=== PATIENT | male | born 1965 | race Caucasian/White ===

== ENCOUNTER 2018-08-26 16:03 | Emergency (ER) | payer MEDICAID, OTHER, SELFPAY ==
[~2018-08-26] VITALS: Ht 182.9 cm; Wt 108.8 kg
[2018-08-26] MEDS ORDERED: LANTINJ4 SC (16:17)
[2018-08-26] MEDS ORDERED: INSUH10VL SC (16:17)
[2018-08-26] MEDS ORDERED: ACETAMINOPHEN 325 MG TAB PO ONE (16:45)
[2018-08-26] MEDS ORDERED: BACI500O8 TOP (18:13)
[2018-08-26 18:21] VITALS: BP 123/89
== END 2018-08-26 18:26 | disposition home or self-care (01) ==
LOC: M ED 16:03
DX: S90.821A Blister (nonthermal), right foot, initial encounter (principal); E11.9 Type 2 diabetes mellitus without complications; X58.XXXA Exposure to other specified factors, initial encounter; Y92.9 Unspecified place or not applicable; Y93.9 Activity, unspecified; Y99.9 Unspecified external cause status; Z79.4 Long term (current) use of insulin; Z88.6 Allergy status to analgesic agent; Z88.0 Allergy status to penicillin; Z88.7 Allergy status to serum and vaccine; Z91.012 Allergy to eggs

== ENCOUNTER 2018-08-30 18:26 | Emergency (ER) | payer MEDICAID, SELFPAY ==
[~2018-08-30] VITALS: Ht 182.9 cm; Wt 109.1 kg
[~2018-08-30 18:26] MED LIST: BACI500O8 TOP; INSUH10VL SC; LANTINJ4 SC
[2018-08-30 18:27] VITALS: BP 142/93
[2018-08-30] MEDS ORDERED: CALL40PA EXT (19:10)
== END 2018-08-30 19:37 | disposition home or self-care (01) ==
LOC: M ED 18:26
DX: L84 Corns and callosities (principal); E11.9 Type 2 diabetes mellitus without complications; I10 Essential (primary) hypertension; Z86.718 Personal history of other venous thrombosis and embolism; Z86.711 Personal history of pulmonary embolism; F17.220 Nicotine dependence, chewing tobacco, uncomplicated; Z88.6 Allergy status to analgesic agent; Z88.0 Allergy status to penicillin; Z91.012 Allergy to eggs; Z88.7 Allergy status to serum and vaccine; Z79.4 Long term (current) use of insulin; Z79.2 Long term (current) use of antibiotics

== ENCOUNTER 2018-09-16 22:52 | Emergency (ER) | payer MEDICAID, SELFPAY ==
[~2018-09-16] VITALS: Ht 182.9 cm; Wt 109.1 kg
[~2018-09-16 22:52] MED LIST changes: +CALL40PA EXT
[2018-09-16] MEDS ORDERED: dexameTHASONE 20 MG/5 ML VIAL (J1100) IV ONE (23:15)
[2018-09-16] MEDS ORDERED: IPRATROPIUM 0.5MG/ALBUTEROL 2.5MG INH SOL UD 3ML (DUONEB)(J7620) NEB ONE (23:15)
[2018-09-17] MEDS ORDERED: PRED20TA PO (00:30)
[2018-09-17] MEDS ORDERED: ZITHTAB PO (00:31)
[2018-09-17 00:57] VITALS: BP 118/68
--- NOTE | 2018-09-17 06:05 | ECGEPIP ---
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
--- NOTE | 2018-09-17 08:05 | REP ---
Chest two views HISTORY: Chest pain Comparison: 11/02/2015 Linear density is present in the left lower lobe consistent with scar. The right lung is clear. The heart is normal in size. The pulmonary vasculature is normal in appearance. The bony structure is intact. IMPRESSION: No acute disease. Electronically Signed by Freddy Joseph MD 09/17/2018 07:56 A
== END 2018-09-17 01:00 | disposition home or self-care (01) ==
LOC: EDBD 22:52 → M ED 22:52
DX: J40 Bronchitis, not specified as acute or chronic (principal); E10.9 Type 1 diabetes mellitus without complications; I10 Essential (primary) hypertension; Z86.718 Personal history of other venous thrombosis and embolism; F17.220 Nicotine dependence, chewing tobacco, uncomplicated; Z88.0 Allergy status to penicillin; Z91.012 Allergy to eggs; Z88.7 Allergy status to serum and vaccine; Z88.6 Allergy status to analgesic agent
CPT/HCPCS: 71046; 93005; 94640; 96374; 99284; J1100

== ENCOUNTER 2018-09-21 20:50 | Emergency (ER) | payer MEDICAID, SELFPAY ==
[~2018-09-21] VITALS: Ht 182.9 cm; Wt 109.1 kg
[~2018-09-21 20:50] MED LIST changes: +PRED20TA PO; +ZITHTAB PO
[2018-09-21] MEDS ORDERED: AZIT-12 (21:07)
[2018-09-21] MEDS ORDERED: NORCO 5/325MG TABLET (BULK FOR ED) PO ONE (22:30)
[2018-09-21 22:32] VITALS: BP 124/81
[2018-09-21] MEDS ORDERED: HYDR-3713 PO (22:34)
[2018-09-21] MEDS ORDERED: NORCOTAB PO (22:36)
--- NOTE | 2018-09-22 01:41 | REP ---
Clinical: Trauma. Technique: AP, lateral, bilateral oblique and sunrise views left knee . Findings: Generalized age-related changes are appreciated. The osseous structures and joint spaces are intact and there is no evidence for acute fracture or dislocation. No joint effusion is appreciated. Surrounding soft tissues are unremarkable. No subcutaneous emphysema or radiodense foreign body. Impression: Age-related changes. No acute fracture or dislocation. Electronically Signed by Ramon Valiente MD 09/22/2018 01:33 A
--- NOTE | 2018-09-22 01:44 | REP ---
Clinical: Trauma/injury. Technique: AP, lateral, bilateral oblique views of the left ankle. Findings: Advanced post traumatic degenerative changes include innumerable old corticated fracture fragments at the medial and lateral malleoli as well as spurring along the anterior-superior and posterior margins of the talus with minimal joint space irregularity. Moderate soft tissue swelling is appreciated. No obvious acute fracture or dislocation. Peripheral vascular disease noted. Impression: Post traumatic arthritic changes. Moderate swelling. No acute fracture identified. Electronically Signed by Ramon Valiente MD 09/22/2018 01:35 A
== END 2018-09-21 22:43 | disposition home or self-care (01) ==
LOC: M ED 20:50
DX: S93.402A Sprain of unspecified ligament of left ankle, initial encounter (principal); S80.02XA Contusion of left knee, initial encounter; W00.9XXA Unspecified fall due to ice and snow, initial encounter; Y92.099 Unspecified place in other non-institutional residence as the place of occurrence of the external cause; Y93.H1 Activity, digging, shoveling and raking; Y99.9 Unspecified external cause status; E11.9 Type 2 diabetes mellitus without complications; I10 Essential (primary) hypertension; Z86.718 Personal history of other venous thrombosis and embolism; Z87.81 Personal history of (healed) traumatic fracture; Z79.4 Long term (current) use of insulin; Z88.6 Allergy status to analgesic agent; Z88.0 Allergy status to penicillin; Z88.7 Allergy status to serum and vaccine; Z91.012 Allergy to eggs

== ENCOUNTER 2018-09-23 22:17 | Emergency (ER) | payer MEDICAID, SELFPAY ==
[~2018-09-23] VITALS: Ht 182.9 cm; Wt 100.0 kg
[~2018-09-23 22:17] MED LIST changes: +AZIT-12; +HYDR-3713 PO; +NORCOTAB PO
[2018-09-23 22:57] LABS: BASO # 0.1 10^3/uL (0.0-0.2); BASO % 0.6 % (0.0-1.0); EOS # 1.1 10^3/uL (0.0-0.50); EOS % 11.6 % (0.0-3.0); HEMATOCRIT 45.8 % (42.0-52.0); HEMOGLOBIN 16.1 g/dl (13.5-17.5); LYMPH # 2.2 10^3/uL (1.5-4.5); LYMPH % 24.1 % (24.0-44.0); MEAN CORPUSCULAR HEMOGLOBIN 28.5 pg (27.0-33.0); MEAN CORPUSCULAR HGB CONC 35.2 g/dl (32.0-36.5); MEAN CORPUSCULAR VOLUME 81.2 fl (80.0-96.0); MONO # 0.7 10^3/uL (0.0-0.8); MONO % 7.8 % (0.0-5.0); NEUTROPHILS # 5.1 10^3/uL (1.8-7.7); NEUTROPHILS % 54.5 % (36.0-66.0); PLATELET COUNT, AUTOMATED 259 10^3/uL (150-450); RED BLOOD COUNT 5.64 10^6/uL (4.30-6.10); WHITE BLOOD COUNT 9.3 10^3/uL (4.0-10.0)
[2018-09-23] MEDS ORDERED: NS 1,000 ML IV SCH (23:07)
[2018-09-23] MEDS ORDERED: GI COCKTAIL 50ML BTL(HYOSCYAMINE/MAALOX/LIDOCAINE VISCOUS)(1:3:1) PO ONE (23:15)
[2018-09-23 23:23] LABS: BLOOD UREA NITROGEN 15 MG/DL (7-18); CALCIUM LEVEL 8.7 MG/DL (8.5-10.1); CARBON DIOXIDE LEVEL 27 MEQ/L (21-32); CHLORIDE LEVEL 97 MEQ/L (98-107); CK-MB VALUE MASS < 1.0 NG/ML (<3.6); CPK CREATINE PHOSPHOKINASE 47 U/L (39-308); GLOMERULAR FILTRATION RATE > 60.0 (>56); GLUCOSE, FASTING 394 MG/DL (70-100); MB/CK RELATIVE INDEX 2.13 (< OR =4); POTASSIUM SERUM 4.3 MEQ/L (3.5-5.1); SODIUM LEVEL 133 MEQ/L (136-145); TROPONIN I < 0.02 NG/ML (< 0.10)
[2018-09-24] MEDS ORDERED: HumuLIN R (REGULAR) INSULIN (NovoLIN R) **100U/ML** PER UNIT IV ONE
[2018-09-24 04:08] LABS: INR 0.92; PROTHROMBIN TIME 12.5 SECONDS (12.1-14.4)
[2018-09-24 04:16] LABS: CK-MB VALUE MASS < 1.0 NG/ML (<3.6); CPK CREATINE PHOSPHOKINASE 40 U/L (39-308); TROPONIN I < 0.02 NG/ML (< 0.10)
[2018-09-24] MEDS ORDERED: TESS100C PO (04:41)
[2018-09-24] MEDS ORDERED: NAPR-50 PO (04:41)
[2018-09-24] MEDS ORDERED: BENZONATATE 100 MG CAP PO ONE (04:45)
[2018-09-24] MEDS ORDERED: ALBUTEROL 90 MCG/ACT 8GM HFA INHALER INH ONE (04:45)
[2018-09-24] MEDS ORDERED: NAPROXEN 250 MG TAB PO ONE (04:45)
[2018-09-24 05:07] VITALS: BP 121/83
--- NOTE | 2018-09-24 08:43 | REP ---
Portable chest x-ray: Single view. History: Chest pain. Comparison study: September 16, 2018. Findings: EKG monitoring electrodes overlie the chest. There is minimal linear fibrosis at the left base unchanged. Lung [place] are otherwise clear. Pleural angles are sharp. Cardiomediastinal silhouette is unremarkable. No significant bony abnormality is seen. Impression: No active disease. Electronically Signed by Mykel Tavares MD 09/24/2018 08:35 A
--- NOTE | 2018-09-24 08:51 | ECGEPIP ---
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
--- NOTE | 2018-09-24 08:53 | ECGEPIP ---
Stationary ECG Study [facility] - ED Test Date: 2018-09-24 Pat Name: BAILEY LE Department: Room: - Gender: M Edgerman: : 1965 Requested By: DEVIKA STEPHENSON Order Number: [id number] Reading MD: Gisella Hawley Measurements Intervals [place] Rate: 89 P: -18 MN: 136 QRS: -31 QRSD: 96 T: 0 QT: 345 QTc: 421 Interpretive Statements SINUS RHYTHM POSSIBLE LEFT ATRIAL ENLARGEMENT MARKED LEFT AXIS DEVIATION PATTERN CONSISTENT WITH PULMONARY DISEASE NONSPECIFIC T-WAVE ABNORMALITY ?PRIOR INFERIOR INFARCT SIMILAR 09/23/18 Electronically Signed On 09-24-2018 8:53:01 EST by Gisella Hawley
--- NOTE | 2018-09-27 07:26 | ECGEPIP ---
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
== END 2018-09-24 05:26 | disposition home or self-care (01) ==
LOC: M ED 22:17
DX: R07.89 Other chest pain (principal); E11.9 Type 2 diabetes mellitus without complications; Z86.718 Personal history of other venous thrombosis and embolism; Z79.899 Other long term (current) drug therapy; Z79.2 Long term (current) use of antibiotics

== ENCOUNTER 2018-10-04 11:40 | Emergency (ER) | payer MEDICAID ==
[~2018-10-04 11:40] MED LIST changes: +NAPR-50 PO; +TESS100C PO
[2018-10-04 13:57] LABS: INFLUENZA A AMPLIFICATION NEGATIVE (NEGATIVE); INFLUENZA B AMPLIFICATION NEGATIVE (NEGATIVE)
[2018-10-04 15:04] VITALS: BP 117/83
== END 2018-10-04 15:06 | disposition home or self-care (01) ==
LOC: EDBD 11:40 → M ED 11:40
DX: B34.9 Viral infection, unspecified (principal); E11.9 Type 2 diabetes mellitus without complications; F17.210 Nicotine dependence, cigarettes, uncomplicated

== ENCOUNTER 2018-10-16 19:54 | Emergency (ER) | payer MEDICAID ==
[~2018-10-16] VITALS: Ht 182.9 cm; Wt 110.5 kg
[~2018-10-16 19:54] MED LIST changes: -CYCL10TA PO; -NEUR300C PO
[2018-10-16] MEDS ORDERED: HALOPERIDOL 5 MG/ML VIAL (J1630) IM ONE (21:15)
[2018-10-16] MEDS ORDERED: GABAPENTIN 300 MG CAP PO ONE (21:45)
[2018-10-16] MEDS ORDERED: CYCLOBENZAPRINE 10 MG TAB PO ONE (21:45)
[2018-10-16 23:28] VITALS: BP 145/93
[2018-10-16] MEDS ORDERED: NEUR300C PO (23:28)
[2018-10-16] MEDS ORDERED: CYCL10TA PO (23:28)
--- NOTE | 2018-10-17 08:31 | REP ---
Right upper extremity duplex venous ultrasound: Repeat dictation. Preliminary report by virtual radiology. History: Recent surgery. Pain. Question venous thrombosis. Findings: The right internal jugular, axillary, brachial, basilic, and cephalic veins are anechoic and compressible in the left upper extremity. Color flow imaging is homogeneous. Spectral Doppler interrogation is unremarkable. There is no evidence of right upper extremity venous thrombosis. Impression: Negative right upper extremity duplex venous ultrasound. No evidence of venous thrombosis. Electronically Signed by Mykel Tavares MD 10/17/2018 08:22 A
[2018-10-17] MEDS ORDERED: NAPR-50 PO (22:05)
== END 2018-10-16 23:55 | disposition home or self-care (01) ==
LOC: M ED 19:54
DX: G62.9 Polyneuropathy, unspecified (principal); M25.511 Pain in right shoulder; G89.18 Other acute postprocedural pain; I10 Essential (primary) hypertension; E11.9 Type 2 diabetes mellitus without complications; Z86.718 Personal history of other venous thrombosis and embolism; Z86.73 Personal history of transient ischemic attack (TIA), and cerebral infarction without residual deficits; F17.220 Nicotine dependence, chewing tobacco, uncomplicated; Z79.4 Long term (current) use of insulin

== ENCOUNTER → 2018-10-16 | Outpatient (REF) | payer MEDICAID ==
[~2018-10-16] MED LIST changes: +CYCL10TA PO; +NEUR300C PO
[2018-10-16 12:31] LABS: BASO # 0.1 10^3/uL (0.0-0.2); BASO % 0.8 % (0.0-1.0); EOS # 1.1 10^3/uL (0.0-0.50); EOS % 11.5 % (0.0-3.0); HEMATOCRIT 47.4 % (42.0-52.0); HEMOGLOBIN 16.7 g/dl (13.5-17.5); LYMPH # 2.8 10^3/uL (1.5-4.5); MEAN CORPUSCULAR HEMOGLOBIN 28.5 pg (27.0-33.0); MEAN CORPUSCULAR HGB CONC 35.2 g/dl (32.0-36.5); MONO # 0.8 10^3/uL (0.0-0.8); MONO % 8.5 % (0.0-5.0); NEUTROPHILS # 4.7 10^3/uL (1.8-7.7); NEUTROPHILS % 49.4 % (36.0-66.0); PLATELET COUNT, AUTOMATED 263 10^3/uL (150-450); RED BLOOD COUNT 5.85 10^6/uL (4.30-6.10); WHITE BLOOD COUNT 9.6 10^3/uL (4.0-10.0)
[2018-10-16 13:00] LABS: ALBUMIN 4.4 GM/DL (3.2-5.2); ALT/SGPT 20 U/L (12-78); BILIRUBIN,TOTAL 0.8 MG/DL (0.2-1.0); BLOOD UREA NITROGEN 13 MG/DL (7-18); CALCIUM LEVEL 9.3 MG/DL (8.5-10.1); CARBON DIOXIDE LEVEL 28 MEQ/L (21-32); CHLORIDE LEVEL 97 MEQ/L (98-107); CHOLESTEROL LEVEL 211 MG/DL (<200); CHOLESTEROL RISK RATIO 5.275 (<5); CREATININE FOR GFR 1.04 MG/DL (0.70-1.30); GLOMERULAR FILTRATION RATE > 60.0 (>56); GLUCOSE, FASTING 424 MG/DL (70-100); HDL CHOLESTEROL 40 MG/DL (>40); LDL CHOLESTEROL 95 MG/DL (<100); NON-HDL-C 171 MG/DL; POTASSIUM SERUM 4.4 MEQ/L (3.5-5.1); SODIUM LEVEL 135 MEQ/L (136-145); TOTAL PROTEIN 8.1 GM/DL (6.4-8.2); TRIGLYCERIDES LEVEL 379 MG/DL (<150)
== END ==
LOC: M LAB REF 11:56
PROVIDERS: ATTEND Family Medicine Addiction Medicine
DX: E11.9 Type 2 diabetes mellitus without complications (principal)

== ENCOUNTER 2018-10-17 17:55 | Emergency (ER) | payer MEDICAID ==
[~2018-10-17] VITALS: Ht 182.9 cm; Wt 110.5 kg
[~2018-10-17 17:55] MED LIST changes: +CYCL10TA PO; +NEUR300C PO
[2018-10-17 21:23] VITALS: BP 123/90
[2018-10-17] MEDS ORDERED: NAPR-50 PO (22:05)
[2018-10-17] MEDS ORDERED: NAPROXEN 250 MG TAB PO ONE (22:15)
--- NOTE | 2018-10-18 08:42 | ECGEPIP ---
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 Order Number: [id number] Reading MD: Gautam Reed Measurements Intervals [place] Rate: 85 P: 18 MO: 157 QRS: -29 QRSD: 95 T: 44 QT: 360 QTc: 428 Interpretive Statements SINUS RHYTHM POSSIBLE LEFT ATRIAL ENLARGEMENT CANNOT R/O INFERIOR MYOCARDIAL INFARCTION, OLD NO CHANGE SINCE 09/24/18 Electronically Signed On 10-18-2018 8:42:28 EST by Gautam Reed
== END 2018-10-17 22:11 | disposition home or self-care (01) ==
LOC: M ED 17:55
DX: G56.02 Carpal tunnel syndrome, left upper limb (principal)

== ENCOUNTER 2018-10-21 20:23 | Emergency (ER) | payer MEDICAID ==
[~2018-10-21] VITALS: Ht 182.9 cm; Wt 108.8 kg
[2018-10-21] MEDS ORDERED: ACETAMINOPH W/CODEINE #3 TAB UD PO ONE (23:15)
[2018-10-22 00:25] VITALS: BP 138/78
--- NOTE | 2018-10-23 11:33 | REP ---
LEFT WRIST, FOUR VIEWS: There is no evidence of an acute fracture, dislocation or intrinsic bone disease. IMPRESSION: No fracture or dislocation. Electronically Signed by Matias Tan MD 10/23/2018 10:56 P
--- NOTE | 2018-10-23 11:34 | REP ---
LEFT KNEE SERIES: Five views, left knee performed. There appears to be an old healed fracture of the proximal fibula. No acute fracture or dislocation is seen. There is mild superior patellar spurring. IMPRESSION: No acute fracture or dislocation. Electronically Signed by Matias Tan MD 10/23/2018 10:56 P
--- NOTE | 2018-10-23 11:39 | REP ---
LUMBOSACRAL SPINE: Five views of lumbosacral spine performed. There is no compression fracture or malalignment with normal lumbar lordosis. There is no spondylolysis or spondylolisthesis. There is moderate narrowing and subchondral sclerosis at L5-S1 with sclerosis at the posterior facet joints at that level as well as spurring. Posterior elements are intact. IMPRESSION: Degenerative changes predominantly at L5-S1 level. No fracture or dislocation. Electronically Signed by Matias Tan MD 10/23/2018 10:58 P
== END 2018-10-22 01:36 | disposition home or self-care (01) ==
LOC: M ED 20:23
DX: S80.02XA Contusion of left knee, initial encounter (principal); M54.5 Low back pain; M25.532 Pain in left wrist; W00.1XXA Fall from stairs and steps due to ice and snow, initial encounter; Y92.098 Other place in other non-institutional residence as the place of occurrence of the external cause; I10 Essential (primary) hypertension; E10.9 Type 1 diabetes mellitus without complications; Z86.73 Personal history of transient ischemic attack (TIA), and cerebral infarction without residual deficits; Z86.711 Personal history of pulmonary embolism; Z88.0 Allergy status to penicillin; Z88.7 Allergy status to serum and vaccine; Z88.8 Allergy status to other drugs, medicaments and biological substances; Z91.012 Allergy to eggs; Z79.899 Other long term (current) drug therapy; Z79.1 Long term (current) use of non-steroidal anti-inflammatories (NSAID)

== ENCOUNTER 2018-10-27 00:42 | Emergency (ER) | payer MEDICAID ==
[~2018-10-27] VITALS: Ht 182.9 cm; Wt 110.5 kg
[2018-10-27 00:43] VITALS: BP 125/88
[2018-10-27] MEDS ORDERED: ONDANSETRON 4 MG ORAL DISINTEGRATING TAB (Q0162 PER 1MG) PO ONE (01:45)
[2018-10-27] MEDS ORDERED: diphenhydrAMINE 50 MG CAP PO ONE (01:45)
[2018-10-27] MEDS ORDERED: ACETAMINOPHEN 325 MG TAB PO ONE (01:45)
== END 2018-10-27 01:59 | disposition home or self-care (01) ==
LOC: M ED 00:42
DX: R51 Headache (principal); E10.9 Type 1 diabetes mellitus without complications; I10 Essential (primary) hypertension
CPT/HCPCS: 99284; Q0162

== ENCOUNTER 2018-10-30 13:36 | Emergency (ER) | payer MEDICAID ==
[~2018-10-30] VITALS: Ht 182.9 cm; Wt 110.5 kg
--- NOTE | 2018-10-30 15:09 | REP ---
RIGHT HAND, FOUR VIEWS: HISTORY: Injury. There is no acute fracture or dislocation. The joint spaces are normal in appearance. A 6 mm linear metallic density is present in the soft tissue lateral to the distal phalange of the fifth digit. IMPRESSION: 1. There is no acute fracture or dislocation. 2. There is a 6 mm linear density in the soft tissue lateral to the distal phalange of the fifth digit. Electronically Signed by Freddy Joseph MD 10/30/2018 03:45 P
[2018-10-30] MEDS ORDERED: traMADol 50 MG TAB PO ONE (16:15)
[2018-10-30] MEDS ORDERED: ACETAMINOPHEN TAB 650MG DOSE (2X325MG) PO ONE (16:15)
[2018-10-30 16:17] VITALS: BP 132/98
--- NOTE | 2018-11-06 20:00 | ED PDOC ---
Post-Departure Follow-Up dr tenorio faxed formal report of right hand film for fu Steve Landrum MD Nov 06, 2018 20:00
== END 2018-10-30 16:23 | disposition home or self-care (01) ==
LOC: M ED 13:36
DX: S60.221A Contusion of right hand, initial encounter (principal); S63.501A Unspecified sprain of right wrist, initial encounter; W22.09XA Striking against other stationary object, initial encounter; Y92.098 Other place in other non-institutional residence as the place of occurrence of the external cause; I10 Essential (primary) hypertension; E11.9 Type 2 diabetes mellitus without complications; Z86.73 Personal history of transient ischemic attack (TIA), and cerebral infarction without residual deficits; Z86.711 Personal history of pulmonary embolism; Z86.718 Personal history of other venous thrombosis and embolism; Z87.891 Personal history of nicotine dependence; Z91.012 Allergy to eggs; Z88.7 Allergy status to serum and vaccine; Z88.0 Allergy status to penicillin; Z88.8 Allergy status to other drugs, medicaments and biological substances; Z79.1 Long term (current) use of non-steroidal anti-inflammatories (NSAID); Z79.4 Long term (current) use of insulin

== ENCOUNTER 2018-11-08 13:07 | Outpatient (RCR) | payer MEDICAID | END 2018-11-09 | LOC: M PT 13:07 | PROVIDERS: ATTEND Orthopaedic Surgery | DX: S43.401D Unspecified sprain of right shoulder joint, subsequent encounter (principal); X58.XXXA Exposure to other specified factors, initial encounter; Y99.8 Other external cause status ==

== ENCOUNTER 2022-04-10 20:26 | Emergency (ER) | payer MEDICAID ==
[~2022-04-10] VITALS: Ht 185.4 cm; Wt 111.3 kg
[~2022-04-10 20:26] MED LIST changes: +CYCL-707 PO; -CYCL10TA PO; +HYDR-3715 PO; -NAPR-50 PO; +NAPR-837 PO; -NORCOTAB PO
[2022-04-10] MEDS ORDERED: CYCLOBENZAPRINE 5MG TABLET PO ONE (22:35)
[2022-04-10] MEDS ORDERED: CYCL5TAB PO ×2 (23:03→23:33)
[2022-04-10 23:15] VITALS: BP 137/79
[2022-04-11] MEDS ORDERED: UNRESOLVED CLARIFICATION ENTRY XX SCH (00:01)
== END 2022-04-10 23:30 | disposition home or self-care (01) ==
LOC: EDBD 20:26 → EDSEX 20:26 → M ED 20:26
DX: M54.50 Low back pain, unspecified (principal); E11.9 Type 2 diabetes mellitus without complications; I10 Essential (primary) hypertension; J44.9 Chronic obstructive pulmonary disease, unspecified; E78.5 Hyperlipidemia, unspecified; K21.9 Gastro-esophageal reflux disease without esophagitis; E66.9 Obesity, unspecified; G89.29 Other chronic pain; M25.511 Pain in right shoulder; Z79.899 Other long term (current) drug therapy; Z79.4 Long term (current) use of insulin; Z88.0 Allergy status to penicillin; Z88.7 Allergy status to serum and vaccine; Z88.8 Allergy status to other drugs, medicaments and biological substances; Z91.012 Allergy to eggs

== ENCOUNTER 2022-04-17 12:26 | Emergency (ER) | payer MEDICAID ==
[~2022-04-17] VITALS: Ht 182.9 cm; Wt 114.1 kg
[~2022-04-17 12:26] MED LIST changes: +CYCL5TAB PO
[2022-04-17 13:15] LABS: BASO # 0.1 10^3/uL (0.0-0.2); BASO % 0.6 % (0.0-1.0); EOS # 0.7 10^3/uL (0.0-0.5); EOS % 8.8 % (0.0-3.0); HEMATOCRIT 36.5 % (42.0-52.0); HEMOGLOBIN 12.9 g/dl (13.5-17.5); LYMPH # 1.8 10^3/uL (1.5-5.0); LYMPH % 23.6 % (24.0-44.0); MEAN CORPUSCULAR HEMOGLOBIN 28.5 pg (27.0-33.0); MEAN CORPUSCULAR HGB CONC 35.3 g/dl (32.0-36.5); MEAN CORPUSCULAR VOLUME 80.8 fl (80.0-96.0); MONO # 0.7 10^3/uL (0.0-0.8); MONO % 8.6 % (2.0-8.0); NEUTROPHILS # 4.5 10^3/uL (1.5-8.5); NEUTROPHILS % 57.6 % (36.0-66.0); PLATELET COUNT, AUTOMATED 221 10^3/uL (150-450); RED BLOOD COUNT 4.52 10^6/uL (4.30-6.10); WHITE BLOOD COUNT 7.8 10^3/uL (4.0-10.0)
[2022-04-17] MEDS ORDERED: ISOVUE-370 76% 100ML VIAL As Ordered ONE (13:23)
[2022-04-17 13:26] LABS: INR 0.92; PROTHROMBIN TIME 12.7 SECONDS (12.7-14.5)
[2022-04-17 13:48] LABS: CK-MB VALUE MASS 1.2 NG/ML (<3.6); MB/CK RELATIVE INDEX 2.11 (< OR =4)
[2022-04-17 13:53] LABS: ALBUMIN 3.4 GM/DL (3.2-5.2); BILIRUBIN,DIRECT 0.1 MG/DL (0.0-0.2); BILIRUBIN,TOTAL 0.5 MG/DL (0.2-1.0); FREE T4 0.97 NG/DL (0.76-1.46); THYROID STIMULATING HORMONE 1.11 uIU/ML (0.358-3.740); TOTAL PROTEIN 6.8 GM/DL (6.4-8.2)
[2022-04-17 15:22] LABS: CK-MB VALUE MASS 1.1 NG/ML (<3.6); MB/CK RELATIVE INDEX 2.2 (< OR =4)
[2022-04-17 16:19] VITALS: BP 138/83
== END 2022-04-17 16:47 | disposition home or self-care (01) ==
LOC: EDBD 12:26 → M ED 12:26
DX: R07.9 Chest pain, unspecified (principal); I25.2 Old myocardial infarction; R94.31 Abnormal electrocardiogram [ECG] [EKG]; E11.9 Type 2 diabetes mellitus without complications; Z79.4 Long term (current) use of insulin; Z79.899 Other long term (current) drug therapy; Z88.7 Allergy status to serum and vaccine; Z88.0 Allergy status to penicillin; Z88.8 Allergy status to other drugs, medicaments and biological substances; Z91.012 Allergy to eggs; Z86.73 Personal history of transient ischemic attack (TIA), and cerebral infarction without residual deficits; Z86.711 Personal history of pulmonary embolism; Z98.890 Other specified postprocedural states
CPT/HCPCS: 71045; 71275; 80047; 80076; 82550; 82553; 83690; 83880; 84439; 84443; 85025; 85610; 85730; 93005; 93041; 94760; 99285; Q9967

== ENCOUNTER 2022-05-30 11:50 | Emergency (ER) | payer MEDICAID ==
[~2022-05-30] VITALS: Ht 182.9 cm; Wt 112.3 kg
[2022-05-30 12:12] LABS: BASO % 0.5 % (0.0-1.0); EOS # 0.8 10^3/uL (0.0-0.5); EOS % 9.9 % (0.0-3.0); HEMATOCRIT 41.2 % (42.0-52.0); HEMOGLOBIN 13.7 g/dl (13.5-17.5); LYMPH # 1.8 10^3/uL (1.5-5.0); LYMPH % 22.1 % (24.0-44.0); MEAN CORPUSCULAR HEMOGLOBIN 27.7 pg (27.0-33.0); MEAN CORPUSCULAR HGB CONC 33.3 g/dl (32.0-36.5); MEAN CORPUSCULAR VOLUME 83.2 fl (80.0-96.0); MONO # 0.8 10^3/uL (0.0-0.8); MONO % 10.1 % (2.0-8.0); NEUTROPHILS # 4.5 10^3/uL (1.5-8.5); NEUTROPHILS % 56.4 % (36.0-66.0); PLATELET COUNT, AUTOMATED 283 10^3/uL (150-450); RED BLOOD COUNT 4.95 10^6/uL (4.30-6.10); WHITE BLOOD COUNT 8.1 10^3/uL (4.0-10.0)
[2022-05-30] MEDS ORDERED: DESL5TAB11 PO (12:20)
[2022-05-30] MEDS ORDERED: LISI10TA22 PO (12:20)
[2022-05-30] MEDS ORDERED: TRAM50TA2 PO (12:21)
[2022-05-30] MEDS ORDERED: NITR0.4S14 SL (12:22)
[2022-05-30] MEDS ORDERED: PROAAER10 INH (12:23)
[2022-05-30] MEDS ORDERED: [UNRECOGNIZED DRUG - CODE] PO (12:23)
[2022-05-30] MEDS ORDERED: LOPE1CAP5 PO (12:27)
[2022-05-30] MEDS ORDERED: LOPE2CAP PO (12:27)
[2022-05-30 12:30] VITALS: BP 120/71
[2022-05-30] MEDS ORDERED: METH4TAB8 PO (12:30)
[2022-05-30] MEDS ORDERED: SULF400T14 PO (12:32)
[2022-05-30] MEDS ORDERED: RANO500T7 PO (12:33)
[2022-05-30] MEDS ORDERED: TIZA4CAP PO (12:33)
[2022-05-30] MEDS ORDERED: TIZA2CAP PO (12:33)
[2022-05-30 13:10] LABS: CK-MB VALUE MASS < 1.0 NG/ML (<3.6); CPK CREATINE PHOSPHOKINASE 41 U/L (39-308); MB/CK RELATIVE INDEX 2.44 (< OR =4)
[2022-05-30 13:13] LABS: ALBUMIN 3.5 GM/DL (3.2-5.2); ALT/SGPT 22 U/L (12-78); BILIRUBIN,DIRECT 0.1 MG/DL (0.0-0.2); BILIRUBIN,TOTAL 0.5 MG/DL (0.2-1.0); BLOOD UREA NITROGEN 22 MG/DL (7-18); CALCIUM LEVEL 8.8 MG/DL (8.5-10.1); CARBON DIOXIDE LEVEL 25 MEQ/L (21-32); CHLORIDE LEVEL 104 MEQ/L (98-107); CREATININE FOR GFR 1.14 MG/DL (0.70-1.30); GLOMERULAR FILTRATION RATE > 60.0 (>56); GLUCOSE, FASTING 229 MG/DL (70-100); POTASSIUM SERUM 5.2 MEQ/L (3.5-5.1); SODIUM LEVEL 134 MEQ/L (136-145); TOTAL PROTEIN 7.3 GM/DL (6.4-8.2)
[2022-05-30 13:14] LABS: LIPASE 718 U/L (73-393)
[2022-05-30 13:44] LABS: RSV AMPLIFICATION NEGATIVE (NEGATIVE)
[2022-05-30 15:25] LABS: CK-MB VALUE MASS < 1.0 NG/ML (<3.6); CPK CREATINE PHOSPHOKINASE 38 U/L (39-308); MB/CK RELATIVE INDEX 2.63 (< OR =4)
[2022-05-30 16:41] LABS: CK-MB VALUE MASS < 1.0 NG/ML (<3.6); CPK CREATINE PHOSPHOKINASE 37 U/L (39-308)
== END 2022-05-30 17:23 | disposition home or self-care (01) ==
LOC: M ED 11:50
DX: U07.1 COVID-19 (principal); R07.89 Other chest pain; E11.9 Type 2 diabetes mellitus without complications; I10 Essential (primary) hypertension; G89.29 Other chronic pain; Z86.73 Personal history of transient ischemic attack (TIA), and cerebral infarction without residual deficits; Z88.0 Allergy status to penicillin; Z91.012 Allergy to eggs; Z87.891 Personal history of nicotine dependence; Z79.899 Other long term (current) drug therapy; Z79.4 Long term (current) use of insulin

== ENCOUNTER 2022-09-24 15:47 | Emergency (ER) | payer MEDICAID ==
[~2022-09-24 15:47] MED LIST changes: +DESL5TAB11 PO; +LISI10TA22 PO; +LOPE1CAP5 PO; +LOPE2CAP PO; +METH4TAB8 PO; +NITR0.4S14 SL; +PROAAER10 INH; +RANO500T7 PO; +SULF400T14 PO; +TIZA2CAP PO; +TIZA4CAP PO; +TRAM50TA2 PO; +[UNRECOGNIZED DRUG - CODE] PO
[2022-09-24] MEDS ORDERED: TETRACAINE 0.5% OPHTH SOLN 4ML OU ONE (16:05)
[2022-09-24] MEDS ORDERED: FLUORESCEIN OPHTH 1MG STRIP OS ONE (16:10)
[2022-09-24] MEDS ORDERED: ACETAMINOPHEN 325 MG TAB PO ONE (16:25)
[2022-09-24 17:06] LABS: BASO # 0.1 10^3/uL (0.0-0.2); BASO % 0.7 % (0.0-1.0); EOS # 0.6 10^3/uL (0.0-0.5); EOS % 7.5 % (0.0-3.0); HEMATOCRIT 39.1 % (42.0-52.0); HEMOGLOBIN 13.5 g/dl (13.5-17.5); LYMPH # 2.6 10^3/uL (1.5-5.0); LYMPH % 29.9 % (24.0-44.0); MEAN CORPUSCULAR HEMOGLOBIN 27.8 pg (27.0-33.0); MEAN CORPUSCULAR HGB CONC 34.5 g/dl (32.0-36.5); MEAN CORPUSCULAR VOLUME 80.5 fl (80.0-96.0); MONO # 0.7 10^3/uL (0.0-0.8); MONO % 8.2 % (2.0-8.0); NEUTROPHILS # 4.5 10^3/uL (1.5-8.5); NEUTROPHILS % 52.9 % (36.0-66.0); PLATELET COUNT, AUTOMATED 218 10^3/uL (150-450); RED BLOOD COUNT 4.86 10^6/uL (4.30-6.10); WHITE BLOOD COUNT 8.5 10^3/uL (4.0-10.0)
[2022-09-24] MEDS ORDERED: ISOVUE-370 76% 100ML VIAL As Ordered ONE (17:15)
[2022-09-24 17:29] LABS: INR 0.95; PROTHROMBIN TIME 12.9 SECONDS (12.5-14.5)
[2022-09-24 17:31] LABS: PARTIAL THROMBOPLASTIN TIME 26.4 SECONDS (24.8-34.2)
[2022-09-24 18:01] LABS: ERYTHROCYTE SEDIMENTATION RATE 19 mm/hr (0-20)
== END 2022-09-24 19:02 | disposition left against medical advice (07) ==
LOC: M ED 17:58
DX: H57.12 Ocular pain, left eye (principal); Z53.9 Procedure and treatment not carried out, unspecified reason; E11.9 Type 2 diabetes mellitus without complications; I10 Essential (primary) hypertension; Z86.73 Personal history of transient ischemic attack (TIA), and cerebral infarction without residual deficits; G93.89 Other specified disorders of brain; I65.23 Occlusion and stenosis of bilateral carotid arteries; Z79.4 Long term (current) use of insulin; Z79.899 Other long term (current) drug therapy; Z88.7 Allergy status to serum and vaccine; Z88.0 Allergy status to penicillin; Z88.8 Allergy status to other drugs, medicaments and biological substances; Z91.012 Allergy to eggs

== ENCOUNTER 2022-09-25 10:42 | Emergency (ER) | payer MEDICAID ==
[~2022-09-25] VITALS: Ht 182.9 cm; Wt 115.9 kg
[2022-09-25 10:50] VITALS: BP 141/79
[2022-09-25] MEDS ORDERED: FLUORESCEIN OPHTH 1MG STRIP OS ONE (12:30)
[2022-09-25] MEDS ORDERED: PROPARACAINE 0.5% OPHTH SOL 15ML OS ONE (12:30)
== END 2022-09-25 14:10 | disposition home or self-care (01) ==
LOC: EDBD 10:42 → M ED 10:42
DX: H53.8 Other visual disturbances (principal); E11.9 Type 2 diabetes mellitus without complications; Z79.4 Long term (current) use of insulin; Z79.899 Other long term (current) drug therapy; Z88.0 Allergy status to penicillin; Z88.7 Allergy status to serum and vaccine; Z88.8 Allergy status to other drugs, medicaments and biological substances; Z91.012 Allergy to eggs

== ENCOUNTER 2022-12-19 17:49 | Emergency (ER) | payer MEDICAID ==
[~2022-12-19] VITALS: Ht 175.3 cm; Wt 111.4 kg
[2022-12-19 18:04] VITALS: BP 154/102
[2022-12-19] MEDS ORDERED: NS 1,000 ML IV SCH (18:25)
[2022-12-19] MEDS ORDERED: GI COCKTAIL 50ML BTL(HYOSCYAMINE/MAALOX/LIDOCAINE VISCOUS)(1:3:1) PO ONE (18:25)
[2022-12-19] MEDS ORDERED: FAMOTIDINE 20MG/2ML VIAL IVP ONE (18:25)
[2022-12-19] MEDS ORDERED: ONDANSETRON 4MG 2ML VIAL IV ONE (18:25)
[2022-12-19 19:13] LABS: BASO # 0.1 10^3/uL (0.0-0.2); BASO % 0.6 % (0.0-1.0); EOS # 0.8 10^3/uL (0.0-0.5); EOS % 9.9 % (0.0-3.0); HEMOGLOBIN 13.5 g/dl (13.5-17.5); LYMPH # 1.8 10^3/uL (1.5-5.0); LYMPH % 23.1 % (24.0-44.0); MEAN CORPUSCULAR HEMOGLOBIN 28.4 pg (27.0-33.0); MEAN CORPUSCULAR HGB CONC 33.8 g/dl (32.0-36.5); MONO # 0.6 10^3/uL (0.0-0.8); MONO % 7.5 % (2.0-8.0); NEUTROPHILS # 4.5 10^3/uL (1.5-8.5); NEUTROPHILS % 58.3 % (36.0-66.0); PLATELET COUNT, AUTOMATED 237 10^3/uL (150-450); RED BLOOD COUNT 4.76 10^6/uL (4.30-6.10); WHITE BLOOD COUNT 7.8 10^3/uL (4.0-10.0)
[2022-12-19 19:22] LABS: INR 0.95; PROTHROMBIN TIME 12.9 SECONDS (12.5-14.5)
[2022-12-19 19:41] LABS: CK-MB VALUE MASS < 1.0 NG/ML (<3.6); LIPASE 84 U/L (12-53)
[2022-12-19 19:43] LABS: ALBUMIN 3.9 G/DL (3.2-5.2); ALKALINE PHOSPHATASE 93 U/L (46-116); ALT/SGPT 19 U/L (7.0-40); AMYLASE 138 U/L (30-118); AST/SGOT 13 U/L (<34); BILIRUBIN,DIRECT < 0.1 MG/DL (<0.4); BILIRUBIN,TOTAL 0.5 MG/DL (0.3-1.2); BLOOD UREA NITROGEN 12 MG/DL (9-23); CALCIUM LEVEL 8.5 MG/DL (8.5-10.1); CARBON DIOXIDE LEVEL 31 MMOL/L (20-31); CHLORIDE LEVEL 105 MMOL/L (98-107); CPK CREATINE PHOSPHOKINASE 40 U/L (46-171); CREATININE FOR GFR 0.91 MG/DL (0.70-1.30); GLOMERULAR FILTRATION RATE > 60.0 (>56); GLUCOSE, FASTING 174 MG/DL (60-100); POTASSIUM SERUM 4.2 MMOL/L (3.5-5.1); SODIUM LEVEL 140 MMOL/L (136-145); TOTAL PROTEIN 6.9 G/DL (5.7-8.2)
[2022-12-19] MEDS ORDERED: ONDA4TAB6 PO (20:33)
== END 2022-12-19 20:33 | disposition home or self-care (01) ==
LOC: M ED 17:49 → EDBD 17:49 → M ED 20:33
DX: K21.00 Gastro-esophageal reflux disease with esophagitis, without bleeding (principal); I25.10 Atherosclerotic heart disease of native coronary artery without angina pectoris; E11.9 Type 2 diabetes mellitus without complications; I10 Essential (primary) hypertension; Z86.73 Personal history of transient ischemic attack (TIA), and cerebral infarction without residual deficits; Z88.0 Allergy status to penicillin; Z88.7 Allergy status to serum and vaccine; Z88.6 Allergy status to analgesic agent; Z91.012 Allergy to eggs; Z79.899 Other long term (current) drug therapy
CPT/HCPCS: 74176; 80048; 80076; 81001; 82150; 82550; 82553; 83690; 85025; 85610; 93005; 96374; 96375; 99284; J2405; S0028

== ENCOUNTER 2023-03-05 21:25 | Emergency (ER) | payer MEDICAID ==
[~2023-03-05] VITALS: Ht 175.3 cm; Wt 113.6 kg
[~2023-03-05 21:25] MED LIST changes: +ONDA4TAB6 PO
[2023-03-05 22:02] LABS: VENOUS BASE EXCESS 1.5 (-2.0-2.0); VENOUS O2 SATURATION 89.6 % (60.0-80.0); VENOUS PARTIAL PRESSURE CO2 46.2 mmHg (38.0-50.0); VENOUS PARTIAL PRESSURE O2 55.4 mmHg (30.0-50.0); VENOUS PH 7.385 UNITS (7.330-7.430); VENOUS STANDARD HCO3 25.6 MMOL/L; VENOUS TOTAL CO2 28.4 MMOL/L (24.0-28.0)
[2023-03-05 22:08] LABS: BASO # 0.1 10^3/uL (0.0-0.2); BASO % 0.7 % (0.0-1.0); EOS % 12.2 % (0.0-3.0); HEMATOCRIT 37.2 % (42.0-52.0); HEMOGLOBIN 12.9 g/dl (13.5-17.5); LYMPH # 2.1 10^3/uL (1.5-5.0); LYMPH % 26.4 % (24.0-44.0); MEAN CORPUSCULAR HEMOGLOBIN 28.3 pg (27.0-33.0); MEAN CORPUSCULAR HGB CONC 34.7 g/dl (32.0-36.5); MEAN CORPUSCULAR VOLUME 81.6 fl (80.0-96.0); MONO # 0.7 10^3/uL (0.0-0.8); NEUTROPHILS # 4.2 10^3/uL (1.5-8.5); NEUTROPHILS % 51.8 % (36.0-66.0); PLATELET COUNT, AUTOMATED 225 10^3/uL (150-450); RED BLOOD COUNT 4.56 10^6/uL (4.30-6.10); WHITE BLOOD COUNT 8.1 10^3/uL (4.0-10.0)
[2023-03-05 22:42] LABS: ALBUMIN 3.7 G/DL (3.2-5.2); ALKALINE PHOSPHATASE 164 U/L (46-116); ALT/SGPT 20 U/L (7.0-40); AST/SGOT 13 U/L (<34); BILIRUBIN,DIRECT < 0.1 MG/DL (<0.4); BILIRUBIN,TOTAL 0.4 MG/DL (0.3-1.2); BLOOD UREA NITROGEN 19 MG/DL (9-23); CALCIUM LEVEL 8.8 MG/DL (8.5-10.1); CARBON DIOXIDE LEVEL 25 MMOL/L (20-31); CHLORIDE LEVEL 104 MMOL/L (98-107); CREATININE FOR GFR 0.83 MG/DL (0.70-1.30); GLOMERULAR FILTRATION RATE > 60.0 (>56); GLUCOSE, FASTING 378 MG/DL (60-100); POTASSIUM SERUM 4.5 MMOL/L (3.5-5.1); SODIUM LEVEL 137 MMOL/L (136-145); TOTAL PROTEIN 6.7 G/DL (5.7-8.2)
[2023-03-06] MEDS ORDERED: NS 1,000 ML IV ONE (01:00)
[2023-03-06] MEDS ORDERED: LEVEMIR (INSULIN DETEMIR) 1 UNITS/0.01ML SC ONE (01:05)
[2023-03-06] MEDS ORDERED: NORCO, ANEXSIA 5/325MG TABLET (HYDROcodone/ACETAMINOPHEN) PO ONE (01:20)
[2023-03-06] MEDS ORDERED: HYDR-3713 PO (01:57)
[2023-03-06 03:15] VITALS: BP 132/84; TEMP 98.4; O2SAT 97
== END 2023-03-06 03:18 | disposition home or self-care (01) ==
LOC: M ED 21:25
DX: S92.314A Nondisplaced fracture of first metatarsal bone, right foot, initial encounter for closed fracture (principal); S40.011A Contusion of right shoulder, initial encounter; W19.XXXA Unspecified fall, initial encounter; Y92.830 Public park as the place of occurrence of the external cause; Y93.89 Activity, other specified; Y99.8 Other external cause status; E11.65 Type 2 diabetes mellitus with hyperglycemia; I10 Essential (primary) hypertension; Z88.0 Allergy status to penicillin; Z88.6 Allergy status to analgesic agent; Z91.012 Allergy to eggs; Z88.7 Allergy status to serum and vaccine; Z79.4 Long term (current) use of insulin; Z79.899 Other long term (current) drug therapy; Z79.51 Long term (current) use of inhaled steroids
CPT/HCPCS: 73030; 73630; 80048; 80076; 82803; 85025; 86140; 96372; 99284; J1815

== ENCOUNTER 2023-03-12 13:11 | Emergency (ER) | payer MEDICAID ==
[~2023-03-12] VITALS: Ht 175.3 cm; Wt 111.9 kg
[2023-03-12] MEDS ORDERED: dexAMETHasone 20MG/5ML VIAL IV ONE (14:05)
[2023-03-12] MEDS ORDERED: NS 1,000 ML IV ONE (14:05)
[2023-03-12 14:13] LABS: BASO # 0.1 10^3/uL (0.0-0.2); BASO % 0.9 % (0.0-1.0); EOS # 0.9 10^3/uL (0.0-0.5); EOS % 9.3 % (0.0-3.0); HEMATOCRIT 41.3 % (42.0-52.0); HEMOGLOBIN 14.7 g/dl (13.5-17.5); LYMPH # 1.8 10^3/uL (1.5-5.0); LYMPH % 18.1 % (24.0-44.0); MEAN CORPUSCULAR HEMOGLOBIN 28.6 pg (27.0-33.0); MEAN CORPUSCULAR HGB CONC 35.6 g/dl (32.0-36.5); MEAN CORPUSCULAR VOLUME 80.4 fl (80.0-96.0); MONO # 0.8 10^3/uL (0.0-0.8); MONO % 8.3 % (2.0-8.0); NEUTROPHILS # 6.1 10^3/uL (1.5-8.5); NEUTROPHILS % 62.8 % (36.0-66.0); PLATELET COUNT, AUTOMATED 256 10^3/uL (150-450); RED BLOOD COUNT 5.14 10^6/uL (4.30-6.10); WHITE BLOOD COUNT 9.8 10^3/uL (4.0-10.0)
[2023-03-12 14:21] LABS: BLOOD UREA NITROGEN 20 MG/DL (9-23); CALCIUM LEVEL 9.4 MG/DL (8.5-10.1); CARBON DIOXIDE LEVEL 23 MMOL/L (20-31); CHLORIDE LEVEL 102 MMOL/L (98-107); GLOMERULAR FILTRATION RATE > 60.0 (>56); GLUCOSE, FASTING 374 MG/DL (60-100); POTASSIUM SERUM 4.1 MMOL/L (3.5-5.1); SODIUM LEVEL 136 MMOL/L (136-145)
[2023-03-12] MEDS: MORPHINE 2 MG/ML 1ML VIAL IV PRN ×2 (14:36→15:13)
[2023-03-12] MEDS ORDERED: KETOROLAC 30 MG/ML 1ML VIAL IV ONE (15:20)
[2023-03-12] MEDS ORDERED: KETO10TAB PO (16:10)
[2023-03-12] MEDS ORDERED: PRED20TA PO (16:10)
[2023-03-12 16:47] VITALS: BP 115/75; TEMP 97.8; O2SAT 96
== END 2023-03-12 16:49 | disposition home or self-care (01) ==
LOC: M ED 13:11
DX: M54.30 Sciatica, unspecified side (principal); E11.9 Type 2 diabetes mellitus without complications; I10 Essential (primary) hypertension; Z88.0 Allergy status to penicillin; Z88.7 Allergy status to serum and vaccine; Z88.6 Allergy status to analgesic agent; Z91.012 Allergy to eggs; Z79.899 Other long term (current) drug therapy; Z79.4 Long term (current) use of insulin; Z79.51 Long term (current) use of inhaled steroids
CPT/HCPCS: 72110; 80048; 85025; 93041; 96365; 96375; 99285; J1100; J1885

== ENCOUNTER 2023-03-22 23:01 | Emergency (ER) | payer MEDICAID ==
[~2023-03-22] VITALS: Ht 175.3 cm; Wt 111.4 kg
[~2023-03-22 23:01] MED LIST changes: +KETO10TAB PO
[2023-03-23 03:25] VITALS: BP 128/90; TEMP 96.8; O2SAT 100
[2023-03-23] MEDS ORDERED: ACETAMINOPHEN 325 MG TAB PO STA (05:37)
== END 2023-03-23 07:03 | disposition left against medical advice (07) ==
LOC: M ED 23:01 → EDBD 23:01 → M ED 03-23 07:03
DX: M54.9 Dorsalgia, unspecified (principal); Z53.21 Procedure and treatment not carried out due to patient leaving prior to being seen by health care provider

== ENCOUNTER 2023-04-15 11:53 | Emergency (ER) | payer MEDICAID ==
[~2023-04-15] VITALS: Ht 175.3 cm; Wt 111.4 kg
[2023-04-15] MEDS ORDERED: LIDOCAINE 5% (LIDODERM) PATCH TD ONE (13:00)
[2023-04-15] MEDS ORDERED: CYCLOBENZAPRINE 10MG TABLET PO ONE (13:00)
[2023-04-15] MEDS ORDERED: CYCL-707 PO (14:08)
[2023-04-15] MEDS ORDERED: LIDO5DIS41 TD (14:10)
[2023-04-15 14:36] VITALS: BP 146/90; TEMP 98.4; O2SAT 99
== END 2023-04-15 14:39 | disposition home or self-care (01) ==
LOC: M ED 11:53 → EDBD 11:53 → M ED 14:39
DX: S39.012A Strain of muscle, fascia and tendon of lower back, initial encounter (principal); X58.XXXA Exposure to other specified factors, initial encounter; Y92.89 Other specified places as the place of occurrence of the external cause; Y93.89 Activity, other specified; Y99.8 Other external cause status; I10 Essential (primary) hypertension; E11.9 Type 2 diabetes mellitus without complications; Z86.73 Personal history of transient ischemic attack (TIA), and cerebral infarction without residual deficits; Z86.711 Personal history of pulmonary embolism; Z86.718 Personal history of other venous thrombosis and embolism; F17.220 Nicotine dependence, chewing tobacco, uncomplicated; Z88.0 Allergy status to penicillin; Z88.4 Allergy status to anesthetic agent; Z88.8 Allergy status to other drugs, medicaments and biological substances; Z88.6 Allergy status to analgesic agent; Z91.012 Allergy to eggs; Z79.899 Other long term (current) drug therapy; Z79.51 Long term (current) use of inhaled steroids; Z79.52 Long term (current) use of systemic steroids

== ENCOUNTER 2023-05-20 13:31 | Emergency (ER) | payer MEDICAID ==
[~2023-05-20] VITALS: Ht 175.3 cm; Wt 111.4 kg
[~2023-05-20 13:31] MED LIST changes: +LIDO5DIS41 TD
[2023-05-20 16:46] LABS: BASO # 0.1 10^3/uL (0.0-0.2); HEMATOCRIT 39.6 % (42.0-52.0); HEMOGLOBIN 13.3 g/dl (13.5-17.5); LYMPH # 1.8 10^3/uL (1.5-5.0); MEAN CORPUSCULAR HEMOGLOBIN 27.8 pg (27.0-33.0); MEAN CORPUSCULAR HGB CONC 33.6 g/dl (32.0-36.5); MEAN CORPUSCULAR VOLUME 82.8 fl (80.0-96.0); MONO # 0.7 10^3/uL (0.0-0.8); MONO % 7.6 % (2.0-8.0); NEUTROPHILS # 5.3 10^3/uL (1.5-8.5); NEUTROPHILS % 59.4 % (36.0-66.0); PLATELET COUNT, AUTOMATED 228 10^3/uL (150-450); RED BLOOD COUNT 4.78 10^6/uL (4.30-6.10)
[2023-05-20 17:05] LABS: LIPASE 62 U/L (12-53)
[2023-05-20 17:07] LABS: ALKALINE PHOSPHATASE 95 U/L (46-116); ALT/SGPT 17 U/L (7.0-40); AST/SGOT < 8 U/L (<34); BILIRUBIN,DIRECT 0.2 MG/DL (<0.4); BILIRUBIN,TOTAL 0.5 MG/DL (0.3-1.2); BLOOD UREA NITROGEN 20 MG/DL (9-23); CALCIUM LEVEL 9.8 MG/DL (8.5-10.1); CARBON DIOXIDE LEVEL 26 MMOL/L (20-31); CHLORIDE LEVEL 107 MMOL/L (98-107); GLOMERULAR FILTRATION RATE > 60.0 (>56); GLUCOSE, FASTING 265 MG/DL (60-100); POTASSIUM SERUM 4.3 MMOL/L (3.5-5.1); SODIUM LEVEL 141 MMOL/L (136-145); TOTAL PROTEIN 7.2 G/DL (5.7-8.2)
[2023-05-20] MEDS ORDERED: ACETAMINOPHEN 500 MG TAB PO ONE (17:45)
[2023-05-20] MEDS ORDERED: METOCLOPRAMIDE INJ 10MG/2ML VIAL IV ONE (19:20)
[2023-05-20] MEDS ORDERED: diphenhydrAMINE 50MG/ML VIAL IV ONE (19:20)
[2023-05-20 19:34] VITALS: BP 168/97; TEMP 97.6; O2SAT 97
[2023-05-20 20:50] LABS: HEMOGLOBIN A1c 11.6 % (4.0-6.0)
== END 2023-05-20 19:41 | disposition home or self-care (01) ==
LOC: M ED 13:31 → EDBD 13:31 → M ED 19:41
DX: M54.50 Low back pain, unspecified (principal); R35.0 Frequency of micturition; E11.9 Type 2 diabetes mellitus without complications; Z79.4 Long term (current) use of insulin; I10 Essential (primary) hypertension; Z86.718 Personal history of other venous thrombosis and embolism; Z88.0 Allergy status to penicillin; Z88.6 Allergy status to analgesic agent; Z88.8 Allergy status to other drugs, medicaments and biological substances; Z88.7 Allergy status to serum and vaccine; Z79.899 Other long term (current) drug therapy
CPT/HCPCS: 72131; 74176; 80048; 80076; 81001; 83036; 83690; 85025; 96374; 96375; 99284; J1200; J2765

== ENCOUNTER 2023-05-22 00:20 | Emergency (ER) | payer MEDICAID ==
[~2023-05-22] VITALS: Ht 175.3 cm; Wt 111.4 kg
[2023-05-22 00:28] VITALS: BP 152/87; TEMP 97.2; O2SAT 97
[2023-05-22] MEDS ORDERED: KETOROLAC 60MG 2ML VIAL IM ONE (06:00)
== END 2023-05-22 05:43 | disposition home or self-care (01) ==
LOC: M ED 00:20
DX: S99.921A Unspecified injury of right foot, initial encounter (principal); W22.8XXA Striking against or struck by other objects, initial encounter; Y92.410 Unspecified street and highway as the place of occurrence of the external cause; Y93.01 Activity, walking, marching and hiking; Y99.8 Other external cause status; E11.9 Type 2 diabetes mellitus without complications; F17.200 Nicotine dependence, unspecified, uncomplicated; Z88.0 Allergy status to penicillin; Z88.7 Allergy status to serum and vaccine; Z88.6 Allergy status to analgesic agent; Z91.012 Allergy to eggs; Z88.8 Allergy status to other drugs, medicaments and biological substances; Z79.899 Other long term (current) drug therapy; Z79.52 Long term (current) use of systemic steroids; Z79.4 Long term (current) use of insulin; Z79.51 Long term (current) use of inhaled steroids
CPT/HCPCS: 73630; 96372; 99284; J1885

== ENCOUNTER 2023-06-18 23:53 | Emergency (ER) | payer MEDICAID ==
[~2023-06-18] VITALS: Ht 175.3 cm; Wt 111.2 kg
[~2023-06-18 23:53] MED LIST changes: +CLEO150C PO; +DOXY100T
[2023-06-19] MEDS ORDERED: KETOROLAC 30 MG/ML 1ML VIAL IV ONE (01:30)
[2023-06-19 01:38] LABS: BASO # 0.1 10^3/uL (0.0-0.2); BASO % 0.6 % (0.0-1.0); EOS # 0.5 10^3/uL (0.0-0.5); EOS % 6.3 % (0.0-3.0); HEMATOCRIT 35.5 % (42.0-52.0); HEMOGLOBIN 12.4 g/dl (13.5-17.5); LYMPH # 1.4 10^3/uL (1.5-5.0); LYMPH % 17.5 % (24.0-44.0); MEAN CORPUSCULAR HGB CONC 34.9 g/dl (32.0-36.5); MEAN CORPUSCULAR VOLUME 82.9 fl (80.0-96.0); MONO # 0.7 10^3/uL (0.0-0.8); MONO % 8.1 % (2.0-8.0); NEUTROPHILS # 5.4 10^3/uL (1.5-8.5); NEUTROPHILS % 66.9 % (36.0-66.0); PLATELET COUNT, AUTOMATED 230 10^3/uL (150-450); RED BLOOD COUNT 4.28 10^6/uL (4.30-6.10); WHITE BLOOD COUNT 8.1 10^3/uL (4.0-10.0)
[2023-06-19 02:13] LABS: BLOOD UREA NITROGEN 14 MG/DL (9-23); CALCIUM LEVEL 8.4 MG/DL (8.5-10.1); CARBON DIOXIDE LEVEL 26 MMOL/L (20-31); CHLORIDE LEVEL 104 MMOL/L (98-107); CREATININE FOR GFR 0.84 MG/DL (0.70-1.30); GLOMERULAR FILTRATION RATE > 60.0 (>56); GLUCOSE, FASTING 454 MG/DL (60-100); POTASSIUM SERUM 4.5 MMOL/L (3.5-5.1); SODIUM LEVEL 137 MMOL/L (136-145)
[2023-06-19] MEDS ORDERED: HumuLIN R (REGULAR) INSULIN (NovoLIN R) **100U/ML** PER UNIT IV ONE (02:15)
[2023-06-19 06:29] VITALS: BP 148/88; TEMP 97.7; O2SAT 99
== END 2023-06-19 06:32 | disposition home or self-care (01) ==
LOC: M ED 23:53
DX: L97.518 Non-pressure chronic ulcer of other part of right foot with other specified severity (principal); M79.604 Pain in right leg; I25.10 Atherosclerotic heart disease of native coronary artery without angina pectoris; I10 Essential (primary) hypertension; E11.9 Type 2 diabetes mellitus without complications; Z96.651 Presence of right artificial knee joint; Z79.4 Long term (current) use of insulin; Z79.899 Other long term (current) drug therapy; Z88.7 Allergy status to serum and vaccine; Z88.0 Allergy status to penicillin; Z88.8 Allergy status to other drugs, medicaments and biological substances; Z91.012 Allergy to eggs; Z91.89 Other specified personal risk factors, not elsewhere classified
CPT/HCPCS: 73630; 80048; 85025; 96374; 96375; 99284; J1815; J1885

== ENCOUNTER 2023-07-23 15:10 | Emergency (ER) | payer MEDICAID ==
[~2023-07-23] VITALS: Ht 175.3 cm; Wt 113.6 kg
[2023-07-23] MEDS ORDERED: ACETAMINOPHEN TAB 650MG DOSE (2X325MG) PO ONE (17:15)
[2023-07-23 17:16] LABS: BASO # 0.1 10^3/uL (0.0-0.2); BASO % 0.7 % (0.0-1.0); EOS # 1.4 10^3/uL (0.0-0.5); EOS % 14.9 % (0.0-3.0); HEMATOCRIT 36.6 % (42.0-52.0); HEMOGLOBIN 12.5 g/dl (13.5-17.5); LYMPH # 2.3 10^3/uL (1.5-5.0); LYMPH % 24.7 % (24.0-44.0); MEAN CORPUSCULAR HEMOGLOBIN 28.8 pg (27.0-33.0); MEAN CORPUSCULAR HGB CONC 34.2 g/dl (32.0-36.5); MEAN CORPUSCULAR VOLUME 84.3 fl (80.0-96.0); MONO # 0.8 10^3/uL (0.0-0.8); MONO % 8.7 % (2.0-8.0); NEUTROPHILS # 4.6 10^3/uL (1.5-8.5); NEUTROPHILS % 50.5 % (36.0-66.0); PLATELET COUNT, AUTOMATED 223 10^3/uL (150-450); RED BLOOD COUNT 4.34 10^6/uL (4.30-6.10); WHITE BLOOD COUNT 9.1 10^3/uL (4.0-10.0)
[2023-07-23 17:31] LABS: BLOOD UREA NITROGEN 22 MG/DL (9-23); CALCIUM LEVEL 8.9 MG/DL (8.5-10.1); CARBON DIOXIDE LEVEL 24 MMOL/L (20-31); CHLORIDE LEVEL 106 MMOL/L (98-107); CREATININE FOR GFR 0.86 MG/DL (0.70-1.30); GLOMERULAR FILTRATION RATE > 60.0 (>56); GLUCOSE, FASTING 126 MG/DL (60-100); POTASSIUM SERUM 4.7 MMOL/L (3.5-5.1); SODIUM LEVEL 140 MMOL/L (136-145)
[2023-07-23 17:43] LABS: PROCALCITONIN <0.04 ng/ml
[2023-07-23 17:46] LABS: RSV AMPLIFICATION NEGATIVE (NEGATIVE)
[2023-07-23 17:47] LABS: ERYTHROCYTE SEDIMENTATION RATE 23 mm/hr (0-20)
[2023-07-23] MEDS ORDERED: KETOROLAC 30 MG/ML 1ML VIAL IV ONE (18:05)
[2023-07-23] MEDS ORDERED: HYDR-3713 PO (18:25)
[2023-07-23] MEDS ORDERED: CEPH500C PO (18:25)
[2023-07-23 18:33] VITALS: BP 132/64; TEMP 97; O2SAT 98
== END 2023-07-23 18:55 | disposition home or self-care (01) ==
LOC: M ED 15:10
DX: E11.621 Type 2 diabetes mellitus with foot ulcer (principal); I25.10 Atherosclerotic heart disease of native coronary artery without angina pectoris; I10 Essential (primary) hypertension; Z86.73 Personal history of transient ischemic attack (TIA), and cerebral infarction without residual deficits; Z86.711 Personal history of pulmonary embolism; Z79.4 Long term (current) use of insulin; Z79.899 Other long term (current) drug therapy; Z88.7 Allergy status to serum and vaccine; Z88.0 Allergy status to penicillin; Z88.8 Allergy status to other drugs, medicaments and biological substances; Z91.012 Allergy to eggs; Z91.89 Other specified personal risk factors, not elsewhere classified
CPT/HCPCS: 73630; 80048; 83605; 84145; 85025; 85652; 86140; 87070; 87077; 87186; 87205; 87631; 96374; 99284; J1885

== ENCOUNTER 2023-08-29 22:48 | Inpatient (IN) | payer MEDICAID ==
[~2023-08-29] VITALS: Ht 175.3 cm; Wt 111.4 kg
[~2023-08-29 22:48] MED LIST changes: +CEPH500C PO
[2023-08-30] MEDS ORDERED: ANEXSIA, NORCO 7.5MG/325MG TABLET(HYDROCODONE/APAP) PO ONE (04:00)
[2023-08-30] MEDS ORDERED: NS 1,000 ML IV ONE (04:00)
[2023-08-30 04:35] LABS: BASO # 0.1 10^3/uL (0.0-0.2); BASO % 0.7 % (0.0-1.0); EOS # 0.6 10^3/uL (0.0-0.5); EOS % 7.3 % (0.0-3.0); HEMATOCRIT 39.2 % (42.0-52.0); HEMOGLOBIN 13.3 g/dl (13.5-17.5); LYMPH # 2.3 10^3/uL (1.5-5.0); MEAN CORPUSCULAR HEMOGLOBIN 28.2 pg (27.0-33.0); MEAN CORPUSCULAR HGB CONC 33.9 g/dl (32.0-36.5); MEAN CORPUSCULAR VOLUME 83.1 fl (80.0-96.0); MONO # 0.6 10^3/uL (0.0-0.8); MONO % 8.1 % (2.0-8.0); NEUTROPHILS # 4.1 10^3/uL (1.5-8.5); NEUTROPHILS % 53.4 % (36.0-66.0); PLATELET COUNT, AUTOMATED 260 10^3/uL (150-450); RED BLOOD COUNT 4.72 10^6/uL (4.30-6.10); WHITE BLOOD COUNT 7.6 10^3/uL (4.0-10.0)
[2023-08-30 05:02] LABS: BLOOD UREA NITROGEN 20 MG/DL (9-23); CALCIUM LEVEL 8.8 MG/DL (8.5-10.1); CARBON DIOXIDE LEVEL 28 MMOL/L (20-31); CHLORIDE LEVEL 103 MMOL/L (98-107); CREATININE FOR GFR 0.86 MG/DL (0.70-1.30); GLOMERULAR FILTRATION RATE > 60.0 (>56); GLUCOSE, FASTING 401 MG/DL (60-100); POTASSIUM SERUM 4.6 MMOL/L (3.5-5.1); SODIUM LEVEL 136 MMOL/L (136-145)
[2023-08-30] MEDS ORDERED: HumuLIN R (REGULAR) INSULIN (NovoLIN R) **100U/ML** PER UNIT IV ONE (05:25)
[2023-08-30] MEDS ORDERED: ISOVUE-370 76% 100ML VIAL As Ordered ONE (05:34)
[2023-08-30 07:48] LABS: ERYTHROCYTE SEDIMENTATION RATE 41 mm/hr (0-20)
[2023-08-30 07:53] LABS: PROCALCITONIN <0.04 ng/ml
[2023-08-30] MEDS ORDERED: NORCO, ANEXSIA 5/325MG TABLET (HYDROcodone/ACETAMINOPHEN) PO ONE (10:25)
[2023-08-30] MEDS ORDERED: PROHANCE 279.3MG/ML 15ML VIAL As Ordered ONE (12:50)
[2023-08-30] MEDS ORDERED: PROHANCE 279.3MG/ML 5ML VIAL As Ordered ONE (12:50)
[2023-08-30] MEDS ORDERED: GLUCOSE 4GM CHEW TABLET PO PRN (14:30)
[2023-08-30] MEDS ORDERED: GLUCAGON INJ 1MG VIAL SC PRN (14:30)
[2023-08-30] MEDS ORDERED: DEXTROSE 50% 50ML SYRINGE IV PRN (14:30)
[2023-08-30] MEDS ORDERED: NORCO, ANEXSIA 5/325MG TABLET (HYDROcodone/ACETAMINOPHEN) PO PRN (14:35)
[2023-08-30] MEDS: LEVEMIR (INSULIN DETEMIR) 1 UNITS/0.01ML SC SCH ×2 (14:57→20:06)
[2023-08-30] MEDS ORDERED: MED REC IN PROGRESS XX SCH (15:15)
[2023-08-30] MEDS: PIPERACILLIN/TAZOBACTAM SOD 3.375 GM in D5W MINI-BAG PLUS 50 ML IV SCH ×2 (15:34→21:43)
[2023-08-30] MEDS ORDERED: RANO500T2 PO (15:51)
[2023-08-30] MEDS ORDERED: ALBU8.5H INH (15:53)
[2023-08-30] MEDS ORDERED: VANCOMYCIN HCL 1,000 MG, VIAL MATE ADAPTER 1 EACH in D5W 250 ML IV ONE ×2 (16:00→17:00)
[2023-08-30] MEDS ORDERED: TRUL10IN SC (16:06)
[2023-08-30] MEDS ORDERED: LOPE2TAB12 PO (16:11)
[2023-08-30] MEDS ORDERED: LISI10TA22 PO (16:12)
[2023-08-30] MEDS ORDERED: ONDA4TAB6 PO (16:15)
[2023-08-30] MEDS ORDERED: HOME MED LIST COMPLETE! XX SCH (16:30)
[2023-08-30] MEDS ORDERED: INSULIN LISPRO (NovoLOG) PER UNIT SC SCH (17:30)
[2023-08-30] MEDS: **hydrALAZINE HCL** 25 MG TAB PO SCH (18:00)
[2023-08-30] MEDS: INSULIN LISPRO (NovoLOG) PER UNIT SC SCH ×3 (18:22→20:07)
[2023-08-30 20:02] VITALS: BP 132/77; TEMP 97.9; O2SAT 98
[2023-08-30] MEDS: NORCO, ANEXSIA 5/325MG TABLET (HYDROcodone/ACETAMINOPHEN) PO PRN (20:08)
[2023-08-30] MEDS: amLODIPine 5 MG TAB PO SCH (21:43)
[2023-08-30] MEDS: RANOLAZINE 500MG ER TAB PO SCH (21:43)
[2023-08-31] VITALS (9 sets, daily range): BP systolic 116–140; BP diastolic 70–88; TEMP 97.2–98.1; O2SAT 95–100
[2023-08-31] MEDS: NS 1,000 ML IV SCH ×3 (00:11→19:08)
[2023-08-31] MEDS: VANCOMYCIN HCL 1,000 MG, VIAL MATE ADAPTER 1 EACH in D5W 250 ML IV SCH ×3 (00:11→17:34)
[2023-08-31] MEDS: PIPERACILLIN/TAZOBACTAM SOD 3.375 GM in D5W MINI-BAG PLUS 50 ML IV SCH ×4 (03:05→21:32)
[2023-08-31] MEDS: NORCO, ANEXSIA 5/325MG TABLET (HYDROcodone/ACETAMINOPHEN) PO PRN ×2 (05:03→21:31)
[2023-08-31] MEDS: **hydrALAZINE HCL** 25 MG TAB PO SCH ×4 (06:00→17:35)
[2023-08-31 06:12] LABS: BASO # 0.1 10^3/uL (0.0-0.2); BASO % 0.7 % (0.0-1.0); EOS # 0.7 10^3/uL (0.0-0.5); EOS % 10.3 % (0.0-3.0); HEMATOCRIT 36.3 % (42.0-52.0); HEMOGLOBIN 12.4 g/dl (13.5-17.5); LYMPH % 27.3 % (24.0-44.0); MEAN CORPUSCULAR HEMOGLOBIN 28.3 pg (27.0-33.0); MEAN CORPUSCULAR HGB CONC 34.2 g/dl (32.0-36.5); MEAN CORPUSCULAR VOLUME 82.9 fl (80.0-96.0); MONO # 0.7 10^3/uL (0.0-0.8); NEUTROPHILS # 3.8 10^3/uL (1.5-8.5); NEUTROPHILS % 52.3 % (36.0-66.0); PLATELET COUNT, AUTOMATED 254 10^3/uL (150-450); RED BLOOD COUNT 4.38 10^6/uL (4.30-6.10); WHITE BLOOD COUNT 7.2 10^3/uL (4.0-10.0)
[2023-08-31 06:37] LABS: BLOOD UREA NITROGEN 15 MG/DL (9-23); CARBON DIOXIDE LEVEL 28 MMOL/L (20-31); CHLORIDE LEVEL 108 MMOL/L (98-107); CREATININE FOR GFR 0.76 MG/DL (0.70-1.30); GLOMERULAR FILTRATION RATE > 60.0 (>56); GLUCOSE, FASTING 175 MG/DL (60-100); POTASSIUM SERUM 4.2 MMOL/L (3.5-5.1); SODIUM LEVEL 139 MMOL/L (136-145)
[2023-08-31] MEDS: INSULIN LISPRO (NovoLOG) PER UNIT SC SCH ×7 (07:30→21:33)
[2023-08-31] MEDS: LEVEMIR (INSULIN DETEMIR) 1 UNITS/0.01ML SC SCH ×2 (08:02→21:33)
[2023-08-31] MEDS: amLODIPine 5 MG TAB PO SCH ×2 (08:21→21:32)
[2023-08-31] MEDS: RANOLAZINE 500MG ER TAB PO SCH ×2 (08:21→21:31)
[2023-08-31] MEDS ORDERED: LIDOCAINE 1% MDV 20ML VIAL As Ordered ONE (13:58)
[2023-08-31] MEDS ORDERED: propofoL 200 MG/20 ML VIAL As Ordered ONE (14:22)
[2023-08-31] MEDS ORDERED: fentaNYL 100 MCG/2 ML INJECTION As Ordered ONE (14:22)
[2023-08-31] MEDS ORDERED: LIDOCAINE 2% 100MG/5ML SDV (FOR ANES.) As Ordered ONE (14:22)
[2023-08-31] MEDS ORDERED: MIDAZOLAM INJ 2MG/2ML VIAL As Ordered ONE (14:22)
[2023-09-01] MEDS: VANCOMYCIN HCL 1,000 MG, VIAL MATE ADAPTER 1 EACH in D5W 250 ML IV SCH ×2 (00:01→08:29)
[2023-09-01 02:00] VITALS: BP 155/91; TEMP 98.1; O2SAT 95
[2023-09-01] MEDS: PIPERACILLIN/TAZOBACTAM SOD 3.375 GM in D5W MINI-BAG PLUS 50 ML IV SCH ×2 (02:56→10:22)
[2023-09-01] MEDS: NORCO, ANEXSIA 5/325MG TABLET (HYDROcodone/ACETAMINOPHEN) PO PRN ×2 (04:16→10:22)
[2023-09-01] MEDS: NS 1,000 ML IV SCH (04:16)
[2023-09-01 05:47] VITALS: BP 155/90
[2023-09-01] MEDS: **hydrALAZINE HCL** 25 MG TAB PO SCH ×3 (05:47→12:00)
[2023-09-01 06:00] VITALS: BP 155/90; TEMP 97.9; O2SAT 97
[2023-09-01 06:58] LABS: BASO # 0.1 10^3/uL (0.0-0.2); BASO % 0.8 % (0.0-1.0); EOS # 0.6 10^3/uL (0.0-0.5); EOS % 7.8 % (0.0-3.0); HEMATOCRIT 37.6 % (42.0-52.0); HEMOGLOBIN 12.7 g/dl (13.5-17.5); LYMPH # 1.5 10^3/uL (1.5-5.0); LYMPH % 18.8 % (24.0-44.0); MEAN CORPUSCULAR HEMOGLOBIN 27.6 pg (27.0-33.0); MEAN CORPUSCULAR HGB CONC 33.8 g/dl (32.0-36.5); MEAN CORPUSCULAR VOLUME 81.7 fl (80.0-96.0); MONO # 0.6 10^3/uL (0.0-0.8); NEUTROPHILS # 5.1 10^3/uL (1.5-8.5); NEUTROPHILS % 64.2 % (36.0-66.0); PLATELET COUNT, AUTOMATED 251 10^3/uL (150-450)
[2023-09-01 07:16] LABS: BLOOD UREA NITROGEN 11 MG/DL (9-23); CALCIUM LEVEL 8.4 MG/DL (8.5-10.1); CARBON DIOXIDE LEVEL 28 MMOL/L (20-31); CHLORIDE LEVEL 103 MMOL/L (98-107); CREATININE FOR GFR 0.77 MG/DL (0.70-1.30); GLOMERULAR FILTRATION RATE > 60.0 (>56); GLUCOSE, FASTING 318 MG/DL (60-100); POTASSIUM SERUM 4.1 MMOL/L (3.5-5.1); SODIUM LEVEL 137 MMOL/L (136-145)
[2023-09-01] MEDS: LEVEMIR (INSULIN DETEMIR) 1 UNITS/0.01ML SC SCH (08:29)
[2023-09-01] MEDS: RANOLAZINE 500MG ER TAB PO SCH (08:30)
[2023-09-01] MEDS: INSULIN LISPRO (NovoLOG) PER UNIT SC SCH ×4 (08:30→13:37)
[2023-09-01] MEDS: amLODIPine 5 MG TAB PO SCH (08:31)
[2023-09-01 10:00] VITALS: BP 151/91; TEMP 97.7; O2SAT 98
[2023-09-01] MEDS ORDERED: CEPH500C PO (12:57)
[2023-09-01] MEDS ORDERED: HYDR-3715 PO (12:57)
[2023-09-01] MEDS ORDERED: LANTINJ4 SC (12:57)
[2023-09-01] MEDS ORDERED: LISI10TA22 PO (12:57)
[2023-09-01 14:00] VITALS: BP 120/81; TEMP 97.7; O2SAT 100
== END 2023-09-01 15:00 | disposition home or self-care (01) | DRG 314 ==
LOC: M ED 22:48 → M ED INP 08-30 14:26 → ENRESERV 08-30 16:14 → M MS5PR 08-30 17:33
PROVIDERS: ADMIT Internal Medicine Nephrology; ATTEND Internal Medicine Nephrology
PROC: 0QBP0ZZ Excision of Left Metatarsal, Open Approach (ICD-10-PCS; principal; 2023-08-31 13:30)
DX: E11.621 Type 2 diabetes mellitus with foot ulcer (principal); E11.40 Type 2 diabetes mellitus with diabetic neuropathy, unspecified; M86.8X7 Other osteomyelitis, ankle and foot; E11.69 Type 2 diabetes mellitus with other specified complication; E11.65 Type 2 diabetes mellitus with hyperglycemia; L97.518 Non-pressure chronic ulcer of other part of right foot with other specified severity; I25.10 Atherosclerotic heart disease of native coronary artery without angina pectoris; I10 Essential (primary) hypertension; E78.5 Hyperlipidemia, unspecified; E73.9 Lactose intolerance, unspecified; Z79.4 Long term (current) use of insulin; Z79.899 Other long term (current) drug therapy; Z91.012 Allergy to eggs; Z88.0 Allergy status to penicillin; Z88.7 Allergy status to serum and vaccine; Z88.6 Allergy status to analgesic agent; Z88.8 Allergy status to other drugs, medicaments and biological substances; Z91.048 Other nonmedicinal substance allergy status; E66.9 Obesity, unspecified; Z86.73 Personal history of transient ischemic attack (TIA), and cerebral infarction without residual deficits; Z86.711 Personal history of pulmonary embolism; Z86.718 Personal history of other venous thrombosis and embolism; Z96.651 Presence of right artificial knee joint

== ENCOUNTER 2023-09-11 21:17 | Emergency (ER) | payer MEDICAID ==
[~2023-09-11] VITALS: Ht 170.2 cm; Wt 112.7 kg
[~2023-09-11 21:17] MED LIST changes: +ALBU8.5H INH; +LOPE2TAB12 PO; +RANO500T2 PO; +TRUL10IN SC
[2023-09-11 21:29] VITALS: TEMP 99.2
[2023-09-12] MEDS ORDERED: MORPHINE 4 MG/ML 1ML VIAL IV ONE (00:10)
[2023-09-12] MEDS ORDERED: ONDANSETRON 4MG 2ML VIAL IV ONE (00:10)
[2023-09-12 00:43] LABS: BASO % 0.5 % (0.0-1.0); EOS # 0.4 10^3/uL (0.0-0.5); EOS % 4.5 % (0.0-3.0); HEMATOCRIT 34.7 % (42.0-52.0); HEMOGLOBIN 11.9 g/dl (13.5-17.5); LYMPH # 1.6 10^3/uL (1.5-5.0); MEAN CORPUSCULAR HEMOGLOBIN 27.7 pg (27.0-33.0); MEAN CORPUSCULAR HGB CONC 34.3 g/dl (32.0-36.5); MEAN CORPUSCULAR VOLUME 80.9 fl (80.0-96.0); MONO # 0.8 10^3/uL (0.0-0.8); MONO % 9.1 % (2.0-8.0); NEUTROPHILS # 5.5 10^3/uL (1.5-8.5); NEUTROPHILS % 66.3 % (36.0-66.0); PLATELET COUNT, AUTOMATED 263 10^3/uL (150-450); RED BLOOD COUNT 4.29 10^6/uL (4.30-6.10); WHITE BLOOD COUNT 8.3 10^3/uL (4.0-10.0)
[2023-09-12] MEDS ORDERED: LEVO1TAB40 PO (01:20)
[2023-09-12 01:24] LABS: BLOOD UREA NITROGEN 14 MG/DL (9-23); CALCIUM LEVEL 8.2 MG/DL (8.5-10.1); CARBON DIOXIDE LEVEL 26 MMOL/L (20-31); CHLORIDE LEVEL 100 MMOL/L (98-107); CREATININE FOR GFR 0.73 MG/DL (0.70-1.30); GLOMERULAR FILTRATION RATE > 60.0 (>56); GLUCOSE, FASTING 538 MG/DL (60-100); POTASSIUM SERUM 4.1 MMOL/L (3.5-5.1); SODIUM LEVEL 133 MMOL/L (136-145)
[2023-09-12 01:30] VITALS: O2SAT 99
[2023-09-12 01:33] LABS: ERYTHROCYTE SEDIMENTATION RATE 52 mm/hr (0-20)
[2023-09-12] MEDS ORDERED: HumuLIN R (REGULAR) INSULIN (NovoLIN R) **100U/ML** PER UNIT IV ONE (01:35)
[2023-09-12] MEDS ORDERED: NS 1,000 ML IV ONE (01:35)
[2023-09-12] MEDS ORDERED: HYDR-3713 PO (01:39)
[2023-09-12] MEDS ORDERED: LevoFLOXacin 750 MG TABLET PO ONE (02:00)
[2023-09-12 04:01] VITALS: BP 130/81
== END 2023-09-12 04:00 | disposition home or self-care (01) ==
LOC: EDBD 21:17 → M ED 21:17
DX: L03.115 Cellulitis of right lower limb (principal); E11.621 Type 2 diabetes mellitus with foot ulcer; L97.519 Non-pressure chronic ulcer of other part of right foot with unspecified severity; T81.49XA Infection following a procedure, other surgical site, initial encounter; Z88.0 Allergy status to penicillin; Z91.048 Other nonmedicinal substance allergy status; Z88.6 Allergy status to analgesic agent; Z88.8 Allergy status to other drugs, medicaments and biological substances; Z79.4 Long term (current) use of insulin; Z79.899 Other long term (current) drug therapy
CPT/HCPCS: 73630; 80048; 85025; 85652; 86140; 96361; 96374; 96375; 99284; J1815; J2405

== ENCOUNTER 2023-09-13 19:55 | Inpatient (IN) | payer MEDICAID ==
[~2023-09-13] VITALS: Ht 175.3 cm; Wt 109.0 kg
[~2023-09-13 19:55] MED LIST changes: +LEVO1TAB40 PO
[2023-09-14] MEDS ORDERED: NORCO, ANEXSIA 5/325MG TABLET (HYDROcodone/ACETAMINOPHEN) PO ONE (06:30)
[2023-09-14 07:01] LABS: BASO % 0.5 % (0.0-1.0); EOS # 0.5 10^3/uL (0.0-0.5); EOS % 8.5 % (0.0-3.0); HEMATOCRIT 36.3 % (42.0-52.0); HEMOGLOBIN 12.4 g/dl (13.5-17.5); LYMPH # 1.2 10^3/uL (1.5-5.0); LYMPH % 21.2 % (24.0-44.0); MEAN CORPUSCULAR HEMOGLOBIN 27.6 pg (27.0-33.0); MEAN CORPUSCULAR HGB CONC 34.2 g/dl (32.0-36.5); MEAN CORPUSCULAR VOLUME 80.7 fl (80.0-96.0); MONO # 0.7 10^3/uL (0.0-0.8); MONO % 12.6 % (2.0-8.0); NEUTROPHILS # 3.3 10^3/uL (1.5-8.5); NEUTROPHILS % 56.3 % (36.0-66.0); PLATELET COUNT, AUTOMATED 231 10^3/uL (150-450); WHITE BLOOD COUNT 5.9 10^3/uL (4.0-10.0)
[2023-09-14] MEDS ORDERED: HumuLIN R (REGULAR) INSULIN (NovoLIN R) **100U/ML** PER UNIT IV ONE (07:10)
[2023-09-14] MEDS ORDERED: NS 1,000 ML IV ONE (07:10)
[2023-09-14 07:23] LABS: C REACTIVE PROTEIN QUANTITATIV 7.2 MG/DL (<1.0)
[2023-09-14 07:37] LABS: VENOUS HCO3 25.2 MMOL/L (23.0-27.0); VENOUS O2 SATURATION 89.2 % (60.0-80.0); VENOUS PARTIAL PRESSURE CO2 43.3 mmHg (38.0-50.0); VENOUS PH 7.383 UNITS (7.330-7.430); VENOUS STANDARD HCO3 24.3 MMOL/L; VENOUS TOTAL CO2 26.5 MMOL/L (24.0-28.0)
[2023-09-14 07:50] LABS: ERYTHROCYTE SEDIMENTATION RATE 55 mm/hr (0-20)
[2023-09-14] MEDS ORDERED: VANCOMYCIN HCL 2,000 MG in D5W 500 ML IV ONE (09:25)
[2023-09-14] MEDS ORDERED: MED REC IN PROGRESS XX SCH (09:50)
[2023-09-14] MEDS ORDERED: VANCOMYCIN HCL 1,000 MG, VIAL MATE ADAPTER 1 EACH in D5W 250 ML IV ONE ×2 (10:00→11:00)
[2023-09-14] MEDS ORDERED: HOME MED LIST COMPLETE! XX SCH (10:50)
[2023-09-14] MEDS ORDERED: MOM 30ML SUSPENSION UDC PO PRN (11:20)
[2023-09-14] MEDS ORDERED: GLUCOSE 4GM CHEW TABLET PO PRN (11:20)
[2023-09-14] MEDS ORDERED: LR 1,000 ML IV SCH (11:20)
[2023-09-14] MEDS ORDERED: GLUCAGON INJ 1MG VIAL SC PRN (11:20)
[2023-09-14] MEDS ORDERED: ACETAMINOPHEN TAB 650MG DOSE (2X325MG) PO PRN (11:20)
[2023-09-14] MEDS ORDERED: DEXTROSE 50% 50ML SYRINGE IV PRN (11:20)
[2023-09-14] MEDS ORDERED: ONDANSETRON 4MG ORAL DISINTEGRATING TAB PO PRN (11:20)
[2023-09-14] MEDS ORDERED: ALBUTEROL 90 MCG/ACT 8GM HFA INHALER INH PRN (11:20)
[2023-09-14 11:30] LABS: RSV AMPLIFICATION NEGATIVE (NEGATIVE)
[2023-09-14 12:11] LABS: PROCALCITONIN 0.2 ng/ml
[2023-09-14 12:32] LABS: INR 1.22; PROTHROMBIN TIME 15.1 SECONDS (12.5-14.5)
[2023-09-14] MEDS: INSULIN LISPRO (NovoLOG) PER UNIT SC SCH ×3 (13:00→20:32)
[2023-09-14] MEDS ORDERED: PIPERACILLIN/TAZOBACTAM SOD 4.5 GM in D5W MINI-BAG PLUS 50 ML IV SCH (14:00)
[2023-09-14] MEDS ORDERED: MORPHINE 2 MG/ML 1ML VIAL IV ONE (14:10)
[2023-09-14] MEDS ORDERED: CLINDAMYCIN 900 MG in IV 1 EA IV SCH (15:00)
[2023-09-14] MEDS: LACTOBACILLUS ACIDOPHILUS CAP (BACID) PO SCH ×3 (15:24→20:31)
[2023-09-14 17:30] VITALS: BP 151/90; TEMP 98.9; O2SAT 99
[2023-09-14] MEDS ORDERED: INSULIN LISPRO (NovoLOG) PER UNIT SC ONE (17:55)
[2023-09-14] MEDS: VANCOMYCIN HCL 1,000 MG, VIAL MATE ADAPTER 1 EACH in NS 250 ML IV SCH (17:59)
[2023-09-14] MEDS: NORCO, ANEXSIA 5/325MG TABLET (HYDROcodone/ACETAMINOPHEN) PO PRN (19:25)
[2023-09-14 20:00] VITALS: BP 124/76; TEMP 96.9; O2SAT 97
[2023-09-14] MEDS ORDERED: PIPERACILLIN/TAZOBACTAM SOD 3.375 GM in D5W MINI-BAG PLUS 50 ML IV SCH (20:00)
[2023-09-14] MEDS: DOCUSATE SODIUM 100MG CAPSULE PO SCH (20:31)
[2023-09-14] MEDS: PIPERACILLIN/TAZOBACTAM SOD 3.375 GM in D5W MINI-BAG PLUS 50 ML IV SCH (20:33)
[2023-09-14] MEDS ORDERED: LEVEMIR (INSULIN DETEMIR) 1 UNITS/0.01ML SC SCH (21:00)
[2023-09-14 23:47] VITALS: BP 132/78; TEMP 97.8; O2SAT 96
[2023-09-15] MEDS: VANCOMYCIN HCL 1,000 MG, VIAL MATE ADAPTER 1 EACH in NS 250 ML IV SCH ×3 (02:51→17:23)
[2023-09-15 03:30] VITALS: BP 112/61; TEMP 97; O2SAT 94
[2023-09-15] MEDS: NORCO, ANEXSIA 5/325MG TABLET (HYDROcodone/ACETAMINOPHEN) PO PRN ×3 (03:30→20:20)
[2023-09-15] MEDS: PIPERACILLIN/TAZOBACTAM SOD 3.375 GM in D5W MINI-BAG PLUS 50 ML IV SCH ×4 (04:32→20:18)
[2023-09-15 06:14] LABS: BASO % 0.5 % (0.0-1.0); EOS # 0.7 10^3/uL (0.0-0.5); EOS % 10.8 % (0.0-3.0); HEMATOCRIT 33.6 % (42.0-52.0); HEMOGLOBIN 11.4 g/dl (13.5-17.5); LYMPH # 1.2 10^3/uL (1.5-5.0); LYMPH % 20.3 % (24.0-44.0); MEAN CORPUSCULAR HEMOGLOBIN 27.3 pg (27.0-33.0); MEAN CORPUSCULAR HGB CONC 33.9 g/dl (32.0-36.5); MEAN CORPUSCULAR VOLUME 80.4 fl (80.0-96.0); MONO # 0.7 10^3/uL (0.0-0.8); MONO % 11.3 % (2.0-8.0); NEUTROPHILS # 3.4 10^3/uL (1.5-8.5); NEUTROPHILS % 56.4 % (36.0-66.0); PLATELET COUNT, AUTOMATED 224 10^3/uL (150-450); RED BLOOD COUNT 4.18 10^6/uL (4.30-6.10)
[2023-09-15 06:51] LABS: BLOOD UREA NITROGEN 13 MG/DL (9-23); CALCIUM LEVEL 8.1 MG/DL (8.5-10.1); CARBON DIOXIDE LEVEL 27 MMOL/L (20-31); CHLORIDE LEVEL 106 MMOL/L (98-107); GLOMERULAR FILTRATION RATE > 60.0 (>56); GLUCOSE, FASTING 405 MG/DL (60-100); POTASSIUM SERUM 4.2 MMOL/L (3.5-5.1); SODIUM LEVEL 137 MMOL/L (136-145)
[2023-09-15] MEDS: INSULIN LISPRO (NovoLOG) PER UNIT SC SCH ×4 (06:56→20:19)
[2023-09-15 08:00] VITALS: BP 130/82; TEMP 97.3; O2SAT 99
[2023-09-15] MEDS ORDERED: LEVEMIR (INSULIN DETEMIR) 1 UNITS/0.01ML SC SCH ×2 (09:00→21:00)
[2023-09-15] MEDS: LACTOBACILLUS ACIDOPHILUS CAP (BACID) PO SCH ×4 (09:23→20:19)
[2023-09-15] MEDS: DOCUSATE SODIUM 100MG CAPSULE PO SCH ×2 (09:23→20:19)
[2023-09-15] MEDS: ATORVASTATIN 20 MG TAB PO SCH (15:27)
[2023-09-15] MEDS: ENOXAPARIN 40MG/0.4ML SYRINGE (J1650 PER 10MG) SC SCH (15:27)
[2023-09-15 16:00] VITALS: BP_SYST 132; BP_SYST 179; BP_DIAS 77; BP_DIAS 80; TEMP 97.3; O2SAT 97
[2023-09-15] MEDS: ASPIRIN 81MG ENTERIC TABLET PO SCH (16:04)
[2023-09-15 19:12] VITALS: BP 138/78
[2023-09-15 20:07] VITALS: BP 138/77; TEMP 97.2; O2SAT 98
[2023-09-15 21:56] VITALS: BP 174/96; TEMP 97.2; O2SAT 98
[2023-09-16] MEDS: VANCOMYCIN HCL 1,000 MG, VIAL MATE ADAPTER 1 EACH in NS 250 ML IV SCH (02:35)
[2023-09-16] MEDS: PIPERACILLIN/TAZOBACTAM SOD 3.375 GM in D5W MINI-BAG PLUS 50 ML IV SCH (04:13)
[2023-09-16 04:21] VITALS: BP 144/88; TEMP 97.5; O2SAT 97
[2023-09-16] MEDS ORDERED: LEVEMIR (INSULIN DETEMIR) 1 UNITS/0.01ML SC SCH (09:00)
[2023-09-16] MEDS: ASPIRIN 81MG ENTERIC TABLET PO SCH (09:00)
[2023-09-16] MEDS ORDERED: AUGMENTIN 875 MG TAB PO SCH (09:00)
[2023-09-16] MEDS: DOCUSATE SODIUM 100MG CAPSULE PO SCH (09:00)
[2023-09-16] MEDS: LACTOBACILLUS ACIDOPHILUS CAP (BACID) PO SCH ×2 (09:23→12:37)
[2023-09-16] MEDS: ATORVASTATIN 20 MG TAB PO SCH (09:23)
[2023-09-16] MEDS: ENOXAPARIN 40MG/0.4ML SYRINGE (J1650 PER 10MG) SC SCH (09:23)
[2023-09-16 09:25] VITALS: BP 144/80
[2023-09-16] MEDS: INSULIN LISPRO (NovoLOG) PER UNIT SC SCH ×2 (09:25→12:37)
[2023-09-16] MEDS: NORCO, ANEXSIA 5/325MG TABLET (HYDROcodone/ACETAMINOPHEN) PO PRN (09:28)
[2023-09-16 09:52] LABS: BASO # 0.1 10^3/uL (0.0-0.2); EOS # 0.7 10^3/uL (0.0-0.5); HEMATOCRIT 35.1 % (42.0-52.0); HEMOGLOBIN 11.7 g/dl (13.5-17.5); LYMPH # 1.7 10^3/uL (1.5-5.0); LYMPH % 26.7 % (24.0-44.0); MEAN CORPUSCULAR HEMOGLOBIN 27.1 pg (27.0-33.0); MEAN CORPUSCULAR HGB CONC 33.3 g/dl (32.0-36.5); MEAN CORPUSCULAR VOLUME 81.3 fl (80.0-96.0); MONO # 0.5 10^3/uL (0.0-0.8); MONO % 8.3 % (2.0-8.0); NEUTROPHILS # 3.2 10^3/uL (1.5-8.5); NEUTROPHILS % 51.2 % (36.0-66.0); PLATELET COUNT, AUTOMATED 249 10^3/uL (150-450); RED BLOOD COUNT 4.32 10^6/uL (4.30-6.10); WHITE BLOOD COUNT 6.2 10^3/uL (4.0-10.0)
[2023-09-16 09:59] LABS: BLOOD UREA NITROGEN 11 MG/DL (9-23); CALCIUM LEVEL 8.6 MG/DL (8.5-10.1); CARBON DIOXIDE LEVEL 29 MMOL/L (20-31); CHLORIDE LEVEL 105 MMOL/L (98-107); CREATININE FOR GFR 0.71 MG/DL (0.70-1.30); GLOMERULAR FILTRATION RATE > 60.0 (>56); GLUCOSE, FASTING 303 MG/DL (60-100); POTASSIUM SERUM 4.2 MMOL/L (3.5-5.1); SODIUM LEVEL 139 MMOL/L (136-145)
[2023-09-16 10:05] LABS: PROCALCITONIN 0.11 ng/ml
[2023-09-16] MEDS ORDERED: ATOR1TAB21 PO (10:21)
[2023-09-16] MEDS ORDERED: AMOX875T2 PO (10:21)
[2023-09-16 10:22] LABS: ERYTHROCYTE SEDIMENTATION RATE 44 mm/hr (0-20)
[2023-09-16] MEDS ORDERED: ATOR40TA75 PO (10:26)
[2023-09-16] MEDS ORDERED: OXYC-517 PO (10:54)
== END 2023-09-16 14:15 | disposition home health service (06) | DRG 314 ==
LOC: EDBD 19:55 → M ED 19:55 → M ED INP 09-14 11:18 → ENRESERV 09-14 15:28 → M PCU 09-14 16:38 → M MS5PR 09-15 21:54
PROVIDERS: ADMIT Student in an Organized Health Care Education/Training Program; ATTEND Student in an Organized Health Care Education/Training Program
PROC: 0QBN0ZZ Excision of Right Metatarsal, Open Approach (ICD-10-PCS; principal; 2023-09-14)
DX: E11.69 Type 2 diabetes mellitus with other specified complication (principal); M86.8X7 Other osteomyelitis, ankle and foot; E11.42 Type 2 diabetes mellitus with diabetic polyneuropathy; I10 Essential (primary) hypertension; E66.9 Obesity, unspecified; Z86.73 Personal history of transient ischemic attack (TIA), and cerebral infarction without residual deficits; Z86.711 Personal history of pulmonary embolism; Z86.718 Personal history of other venous thrombosis and embolism; I25.10 Atherosclerotic heart disease of native coronary artery without angina pectoris; Z96.651 Presence of right artificial knee joint; F17.220 Nicotine dependence, chewing tobacco, uncomplicated; E11.621 Type 2 diabetes mellitus with foot ulcer; L03.115 Cellulitis of right lower limb; L97.519 Non-pressure chronic ulcer of other part of right foot with unspecified severity; J45.909 Unspecified asthma, uncomplicated; Z79.4 Long term (current) use of insulin; Z79.899 Other long term (current) drug therapy; Z88.0 Allergy status to penicillin; Z88.6 Allergy status to analgesic agent; Z88.8 Allergy status to other drugs, medicaments and biological substances; Z91.012 Allergy to eggs; Z91.011 Allergy to milk products; Z88.7 Allergy status to serum and vaccine; Z91.041 Radiographic dye allergy status; Z20.822 Contact with and (suspected) exposure to COVID-19

== ENCOUNTER 2023-09-27 16:09 | Emergency (ER) | payer MEDICAID ==
[~2023-09-27] VITALS: Ht 175.3 cm; Wt 109.1 kg
[~2023-09-27 16:09] MED LIST changes: +AMOX875T2 PO; +ATOR1TAB21 PO; +ATOR40TA75 PO; +OXYC-517 PO
[2023-09-27 22:29] VITALS: BP 131/83; TEMP 97.3; O2SAT 99
== END 2023-09-28 01:01 | disposition left against medical advice (07) ==
LOC: EDBD 16:09 → M ED 16:09
DX: Z53.21 Procedure and treatment not carried out due to patient leaving prior to being seen by health care provider (principal)

== ENCOUNTER 2023-09-29 16:50 | Emergency (ER) | payer MEDICAID ==
[~2023-09-29] VITALS: Ht 175.3 cm; Wt 120.5 kg
[2023-09-29] MEDS ORDERED: MORPHINE 4 MG/ML 1ML VIAL IV ONE (18:35)
[2023-09-29 19:08] LABS: BASO # 0.1 10^3/uL (0.0-0.2); EOS # 0.9 10^3/uL (0.0-0.5); EOS % 8.4 % (0.0-3.0); HEMATOCRIT 37.7 % (42.0-52.0); HEMOGLOBIN 12.9 g/dl (13.5-17.5); LYMPH # 2.2 10^3/uL (1.5-5.0); LYMPH % 20.9 % (24.0-44.0); MEAN CORPUSCULAR HEMOGLOBIN 27.4 pg (27.0-33.0); MEAN CORPUSCULAR HGB CONC 34.2 g/dl (32.0-36.5); MONO # 0.8 10^3/uL (0.0-0.8); MONO % 7.6 % (2.0-8.0); NEUTROPHILS # 6.4 10^3/uL (1.5-8.5); NEUTROPHILS % 61.8 % (36.0-66.0); PLATELET COUNT, AUTOMATED 238 10^3/uL (150-450); RED BLOOD COUNT 4.71 10^6/uL (4.30-6.10); WHITE BLOOD COUNT 10.4 10^3/uL (4.0-10.0)
[2023-09-29] MEDS ORDERED: DALBAVANCIN 1,500 MG in D5W 250 ML IV ONE (19:25)
[2023-09-29 21:04] VITALS: BP 164/96; TEMP 97.3; O2SAT 100
== END 2023-09-29 21:36 | disposition home or self-care (01) ==
LOC: M ED 16:50
DX: E11.621 Type 2 diabetes mellitus with foot ulcer (principal); I25.2 Old myocardial infarction; I10 Essential (primary) hypertension; Z86.711 Personal history of pulmonary embolism; F17.220 Nicotine dependence, chewing tobacco, uncomplicated; Z79.84 Long term (current) use of oral hypoglycemic drugs; Z79.899 Other long term (current) drug therapy; Z88.0 Allergy status to penicillin; Z88.8 Allergy status to other drugs, medicaments and biological substances; Z88.7 Allergy status to serum and vaccine; Z91.012 Allergy to eggs; Z91.89 Other specified personal risk factors, not elsewhere classified
CPT/HCPCS: 73630; 80047; 83605; 85025; 96365; 96375; 99284; J0875

== ENCOUNTER 2023-10-30 02:33 | Emergency (ER) | payer MEDICAID ==
[~2023-10-30] VITALS: Ht 167.6 cm; Wt 106.0 kg
[2023-10-30 03:19] LABS: BASO # 0.1 10^3/uL (0.0-0.2); BASO % 0.7 % (0.0-1.0); EOS # 0.4 10^3/uL (0.0-0.5); EOS % 5.3 % (0.0-3.0); HEMATOCRIT 39.3 % (42.0-52.0); HEMOGLOBIN 13.6 g/dl (13.5-17.5); LYMPH # 1.7 10^3/uL (1.5-5.0); LYMPH % 23.1 % (24.0-44.0); MEAN CORPUSCULAR HGB CONC 34.6 g/dl (32.0-36.5); MEAN CORPUSCULAR VOLUME 80.9 fl (80.0-96.0); MONO # 0.7 10^3/uL (0.0-0.8); MONO % 9.3 % (2.0-8.0); NEUTROPHILS # 4.6 10^3/uL (1.5-8.5); NEUTROPHILS % 61.1 % (36.0-66.0); PLATELET COUNT, AUTOMATED 240 10^3/uL (150-450); RED BLOOD COUNT 4.86 10^6/uL (4.30-6.10); WHITE BLOOD COUNT 7.5 10^3/uL (4.0-10.0)
[2023-10-30 03:35] LABS: CK-MB VALUE MASS < 1.0 NG/ML (<3.6); LIPASE 70 U/L (12-53)
[2023-10-30 03:37] LABS: ALBUMIN 3.6 G/DL (3.2-5.2); ALKALINE PHOSPHATASE 94 U/L (46-116); ALT/SGPT 13 U/L (7.0-40); AST/SGOT 8 U/L (<34); BILIRUBIN,DIRECT < 0.1 MG/DL (<0.4); BILIRUBIN,TOTAL 0.4 MG/DL (0.3-1.2); BLOOD UREA NITROGEN 26 MG/DL (9-23); CALCIUM LEVEL 9.1 MG/DL (8.5-10.1); CARBON DIOXIDE LEVEL 26 MMOL/L (20-31); CHLORIDE LEVEL 105 MMOL/L (98-107); CPK CREATINE PHOSPHOKINASE 29 U/L (46-171); CREATININE FOR GFR 0.81 MG/DL (0.70-1.30); GLOMERULAR FILTRATION RATE > 60.0 (>56); GLUCOSE, FASTING 351 MG/DL (60-100); MB/CK RELATIVE INDEX 3.44 (< OR =4); POTASSIUM SERUM 4.2 MMOL/L (3.5-5.1); SODIUM LEVEL 138 MMOL/L (136-145); TOTAL PROTEIN 6.8 G/DL (5.7-8.2)
[2023-10-30] MEDS: NS 1,000 ML IV ONE (04:34)
[2023-10-30] MEDS: KETOROLAC 30 MG/ML 1ML VIAL IV ONE (04:34)
[2023-10-30 04:54] LABS: CK-MB VALUE MASS < 1.0 NG/ML (<3.6); CPK CREATINE PHOSPHOKINASE 32 U/L (46-171); MB/CK RELATIVE INDEX 3.12 (< OR =4)
[2023-10-30] MEDS ORDERED: ISOVUE-370 76% 100ML VIAL As Ordered ONE (06:40)
[2023-10-30] MEDS: ONDANSETRON 4MG 2ML VIAL IV ONE (06:42)
[2023-10-30] MEDS: MORPHINE 4 MG/ML 1ML VIAL IV PRN (06:43)
[2023-10-30 08:00] VITALS: TEMP 97.6
[2023-10-30 08:45] VITALS: BP 128/84; O2SAT 96
== END 2023-10-30 09:33 | disposition home or self-care (01) ==
LOC: M ED 02:33
DX: R07.9 Chest pain, unspecified (principal); I25.42 Coronary artery dissection; E11.9 Type 2 diabetes mellitus without complications; I10 Essential (primary) hypertension; F17.290 Nicotine dependence, other tobacco product, uncomplicated; I44.7 Left bundle-branch block, unspecified; Z88.7 Allergy status to serum and vaccine; Z88.8 Allergy status to other drugs, medicaments and biological substances; Z88.0 Allergy status to penicillin; Z91.011 Allergy to milk products; Z91.048 Other nonmedicinal substance allergy status; Z91.012 Allergy to eggs; Z79.51 Long term (current) use of inhaled steroids; Z79.899 Other long term (current) drug therapy; Z79.2 Long term (current) use of antibiotics; Z79.4 Long term (current) use of insulin
CPT/HCPCS: 71045; 71275; 80048; 80076; 82550; 82553; 83690; 83880; 85025; 87486; 87581; 87633; 87798; 93005; 93041; 94760; 96374; 96375; 99285; J1885; J2405; Q9967

== ENCOUNTER 2023-11-13 06:44 | Emergency (ER) | payer MEDICAID ==
[~2023-11-13] VITALS: Ht 175.3 cm; Wt 112.3 kg
[2023-11-13 06:51] VITALS: TEMP 97.8
[2023-11-13 07:52] LABS: BASO # 0.1 10^3/uL (0.0-0.2); BASO % 1.1 % (0.0-1.0); EOS # 0.6 10^3/uL (0.0-0.5); EOS % 8.3 % (0.0-3.0); HEMATOCRIT 37.8 % (42.0-52.0); HEMOGLOBIN 13.2 g/dl (13.5-17.5); LYMPH # 1.9 10^3/uL (1.5-5.0); LYMPH % 26.3 % (24.0-44.0); MEAN CORPUSCULAR HEMOGLOBIN 28.1 pg (27.0-33.0); MEAN CORPUSCULAR HGB CONC 34.9 g/dl (32.0-36.5); MEAN CORPUSCULAR VOLUME 80.6 fl (80.0-96.0); MONO # 0.7 10^3/uL (0.0-0.8); NEUTROPHILS # 3.9 10^3/uL (1.5-8.5); NEUTROPHILS % 53.8 % (36.0-66.0); PLATELET COUNT, AUTOMATED 228 10^3/uL (150-450); RED BLOOD COUNT 4.69 10^6/uL (4.30-6.10); WHITE BLOOD COUNT 7.3 10^3/uL (4.0-10.0)
[2023-11-13] MEDS: NS 1,000 ML IV ONE ×2 (08:01→09:20)
[2023-11-13 08:04] LABS: INR 1.04; PARTIAL THROMBOPLASTIN TIME 27.1 SECONDS (24.8-34.2); PROTHROMBIN TIME 13.3 SECONDS (12.5-14.5)
[2023-11-13 08:13] LABS: LIPASE 50 U/L (12-53)
[2023-11-13 08:15] LABS: ALBUMIN 3.7 G/DL (3.2-5.2); ALKALINE PHOSPHATASE 90 U/L (46-116); ALT/SGPT 17 U/L (7.0-40); AST/SGOT 23 U/L (<34); BILIRUBIN,DIRECT 0.1 MG/DL (<0.4); BILIRUBIN,TOTAL 0.5 MG/DL (0.3-1.2); BLOOD UREA NITROGEN 18 MG/DL (9-23); CALCIUM LEVEL 8.9 MG/DL (8.5-10.1); CARBON DIOXIDE LEVEL 27 MMOL/L (20-31); CHLORIDE LEVEL 102 MMOL/L (98-107); CK-MB VALUE MASS 2.1 NG/ML (<3.6); CREATININE FOR GFR 0.89 MG/DL (0.70-1.30); GLOMERULAR FILTRATION RATE > 60.0 (>56); GLUCOSE, FASTING 348 MG/DL (60-100); POTASSIUM SERUM 4.3 MMOL/L (3.5-5.1); SODIUM LEVEL 137 MMOL/L (136-145); TOTAL PROTEIN 6.8 G/DL (5.7-8.2)
[2023-11-13 08:25] LABS: CPK CREATINE PHOSPHOKINASE 122 U/L (46-171); MB/CK RELATIVE INDEX 1.72 (< OR =4)
[2023-11-13 10:47] VITALS: BP 130/78; O2SAT 96
== END 2023-11-13 11:12 | disposition home or self-care (01) ==
LOC: M ED 06:44 → EDBD 06:44 → M ED 11:12
DX: I95.1 Orthostatic hypotension (principal); I44.7 Left bundle-branch block, unspecified; E11.9 Type 2 diabetes mellitus without complications; F17.220 Nicotine dependence, chewing tobacco, uncomplicated; Z88.7 Allergy status to serum and vaccine; Z88.8 Allergy status to other drugs, medicaments and biological substances; Z88.0 Allergy status to penicillin; Z91.012 Allergy to eggs; Z91.048 Other nonmedicinal substance allergy status; Z79.51 Long term (current) use of inhaled steroids; Z79.899 Other long term (current) drug therapy; Z79.4 Long term (current) use of insulin

== ENCOUNTER 2023-11-15 08:14 | Emergency (ER) | payer MEDICAID ==
[~2023-11-15] VITALS: Ht 175.3 cm; Wt 105.5 kg
[2023-11-15] MEDS: ACETAMINOPHEN TAB 650MG DOSE (2X325MG) PO ONE (12:15)
[2023-11-15 12:49] VITALS: BP 141/68; TEMP 98.2; O2SAT 98
[2023-11-15] MEDS: KETOROLAC 30 MG/ML 1ML VIAL IM ONE (12:49)
== END 2023-11-15 13:44 | disposition home or self-care (01) ==
LOC: M ED 08:14
DX: M79.604 Pain in right leg (principal); E11.9 Type 2 diabetes mellitus without complications; I10 Essential (primary) hypertension; Z88.7 Allergy status to serum and vaccine; Z88.8 Allergy status to other drugs, medicaments and biological substances; Z88.0 Allergy status to penicillin; Z91.011 Allergy to milk products; Z91.048 Other nonmedicinal substance allergy status; Z79.899 Other long term (current) drug therapy; Z79.51 Long term (current) use of inhaled steroids; Z79.4 Long term (current) use of insulin
CPT/HCPCS: 72170; 73502; 73564; 93971; 96372; 99284; J1885

== ENCOUNTER 2023-11-27 20:41 | Emergency (ER) | payer MEDICAID ==
[~2023-11-27] VITALS: Ht 175.3 cm; Wt 107.0 kg
[2023-11-27 20:56] VITALS: BP 124/74; TEMP 97.4; O2SAT 97
[2023-11-27] MEDS ORDERED: HYDR-3713 PO (23:01)
[2023-11-27] MEDS: NORCO 5/325MG TABLET (HOME DOSE PACK) PO ONE (23:15)
== END 2023-11-27 23:16 | disposition home or self-care (01) ==
LOC: M ED 20:41 → EDBD 20:41 → M ED 23:16
DX: M19.011 Primary osteoarthritis, right shoulder (principal); M19.021 Primary osteoarthritis, right elbow; Z88.7 Allergy status to serum and vaccine; Z88.8 Allergy status to other drugs, medicaments and biological substances; Z88.0 Allergy status to penicillin; Z91.012 Allergy to eggs; Z91.011 Allergy to milk products; Z79.1 Long term (current) use of non-steroidal anti-inflammatories (NSAID); Z79.51 Long term (current) use of inhaled steroids; Z79.4 Long term (current) use of insulin; Z79.899 Other long term (current) drug therapy

== ENCOUNTER 2023-11-29 10:59 | Emergency (ER) | payer MEDICAID ==
[~2023-11-29] VITALS: Ht 175.3 cm; Wt 108.0 kg
[2023-11-29 15:56] VITALS: BP 151/82; TEMP 98.1; O2SAT 96
== END 2023-11-29 15:58 | disposition home or self-care (01) ==
LOC: EDBD 10:59 → M ED 10:59
DX: S63.92XA Sprain of unspecified part of left wrist and hand, initial encounter (principal); S80.00XA Contusion of unspecified knee, initial encounter; Y92.410 Unspecified street and highway as the place of occurrence of the external cause; Y93.9 Activity, unspecified; Y99.9 Unspecified external cause status; K21.9 Gastro-esophageal reflux disease without esophagitis; I10 Essential (primary) hypertension; E10.9 Type 1 diabetes mellitus without complications; E78.5 Hyperlipidemia, unspecified; Z88.7 Allergy status to serum and vaccine; Z88.0 Allergy status to penicillin; Z88.8 Allergy status to other drugs, medicaments and biological substances; Z91.012 Allergy to eggs; Z91.011 Allergy to milk products; Z79.899 Other long term (current) drug therapy; Z79.51 Long term (current) use of inhaled steroids; Z79.1 Long term (current) use of non-steroidal anti-inflammatories (NSAID); Z79.4 Long term (current) use of insulin

== ENCOUNTER 2023-12-04 13:22 | Emergency (ER) | payer MEDICAID ==
[~2023-12-04] VITALS: Ht 175.3 cm; Wt 112.3 kg
[2023-12-04] MEDS: LIDOCAINE 5% (LIDODERM) PATCH TD ONE (14:11)
[2023-12-04] MEDS ORDERED: METH-1164 PO (15:08)
[2023-12-04] MEDS ORDERED: DICL20GE TP (15:08)
[2023-12-04 15:17] VITALS: BP 135/81; TEMP 98; O2SAT 97
[2023-12-04] MEDS ORDERED: ACETAMINOPHEN TAB 650MG DOSE (2X325MG) PO ONE (15:20)
== END 2023-12-04 15:27 | disposition home or self-care (01) ==
LOC: M ED 13:22 → EDBD 13:22 → M ED 15:27
DX: S39.012A Strain of muscle, fascia and tendon of lower back, initial encounter (principal); S83.91XA Sprain of unspecified site of right knee, initial encounter; Y92.9 Unspecified place or not applicable; Y93.9 Activity, unspecified; Y99.9 Unspecified external cause status; Z88.8 Allergy status to other drugs, medicaments and biological substances; Z88.0 Allergy status to penicillin; Z88.7 Allergy status to serum and vaccine; Z91.011 Allergy to milk products; Z91.012 Allergy to eggs; Z79.899 Other long term (current) drug therapy; Z79.51 Long term (current) use of inhaled steroids; Z79.84 Long term (current) use of oral hypoglycemic drugs; Z79.4 Long term (current) use of insulin

== ENCOUNTER 2023-12-26 16:24 | Emergency (ER) | payer MEDICAID ==
[~2023-12-26] VITALS: Ht 175.3 cm; Wt 111.4 kg
[~2023-12-26 16:24] MED LIST changes: +DICL20GE TP; +METH-1164 PO
[2023-12-26 17:22] LABS: BASO # 0.1 10^3/uL (0.0-0.2); BASO % 0.7 % (0.0-1.0); EOS # 0.7 10^3/uL (0.0-0.5); EOS % 8.1 % (0.0-3.0); HEMATOCRIT 40.1 % (42.0-52.0); HEMOGLOBIN 14.1 g/dl (13.5-17.5); LYMPH # 2.3 10^3/uL (1.5-5.0); LYMPH % 25.2 % (24.0-44.0); MEAN CORPUSCULAR HEMOGLOBIN 28.4 pg (27.0-33.0); MEAN CORPUSCULAR HGB CONC 35.2 g/dl (32.0-36.5); MEAN CORPUSCULAR VOLUME 80.8 fl (80.0-96.0); MONO # 0.8 10^3/uL (0.0-0.8); MONO % 8.6 % (2.0-8.0); NEUTROPHILS # 5.1 10^3/uL (1.5-8.5); PLATELET COUNT, AUTOMATED 211 10^3/uL (150-450); RED BLOOD COUNT 4.96 10^6/uL (4.30-6.10); WHITE BLOOD COUNT 8.9 10^3/uL (4.0-10.0)
[2023-12-26 17:31] LABS: CK-MB VALUE MASS 1.1 NG/ML (<3.6); LIPASE 60 U/L (12-53)
[2023-12-26 17:32] LABS: ETHYL ALCOHOL (ETHANOL) < 0.003 % (0.000-0.010)
[2023-12-26 17:58] LABS: ALBUMIN 3.4 G/DL (3.2-5.2); ALKALINE PHOSPHATASE 111 U/L (46-116); ALT/SGPT 14 U/L (7.0-40); AST/SGOT 8 U/L (<34); BILIRUBIN,DIRECT < 0.1 MG/DL (<0.4); BILIRUBIN,TOTAL 0.4 MG/DL (0.3-1.2); BLOOD UREA NITROGEN 24 MG/DL (9-23); CALCIUM LEVEL 8.4 MG/DL (8.5-10.1); CARBON DIOXIDE LEVEL 25 MMOL/L (20-31); CHLORIDE LEVEL 102 MMOL/L (98-107); CPK CREATINE PHOSPHOKINASE 50 U/L (46-171); CREATININE FOR GFR 0.77 MG/DL (0.70-1.30); GLOMERULAR FILTRATION RATE > 60.0 (>56); GLUCOSE, FASTING 361 MG/DL (60-100); POTASSIUM SERUM 4.1 MMOL/L (3.5-5.1); SODIUM LEVEL 135 MMOL/L (136-145); TOTAL PROTEIN 6.6 G/DL (5.7-8.2)
[2023-12-26 18:00] VITALS: TEMP 98
[2023-12-26] MEDS: ONDANSETRON 4MG 2ML VIAL IV STA (18:09)
[2023-12-26] MEDS: MORPHINE 2 MG/ML 1ML VIAL IV PRN (18:10)
[2023-12-26 18:22] LABS: CK-MB VALUE MASS 1.1 NG/ML (<3.6)
[2023-12-26 18:24] LABS: MB/CK RELATIVE INDEX 2.39 (< OR =4)
[2023-12-26] MEDS ORDERED: ISOVUE-370 76% 100ML VIAL As Ordered ONE (18:55)
[2023-12-26] MEDS: HumuLIN R (REGULAR) INSULIN (NovoLIN R) **100U/ML** PER UNIT IV ONE (19:33)
[2023-12-26 20:57] VITALS: BP 162/94; O2SAT 96
== END 2023-12-26 20:59 | disposition home or self-care (01) ==
LOC: EDBD 16:24 → M ED 16:24
DX: R07.9 Chest pain, unspecified (principal); I44.7 Left bundle-branch block, unspecified; I25.119 Atherosclerotic heart disease of native coronary artery with unspecified angina pectoris; E11.9 Type 2 diabetes mellitus without complications; I10 Essential (primary) hypertension; E78.5 Hyperlipidemia, unspecified; Z88.7 Allergy status to serum and vaccine; Z88.0 Allergy status to penicillin; Z88.8 Allergy status to other drugs, medicaments and biological substances; Z91.012 Allergy to eggs; Z91.011 Allergy to milk products; Z79.51 Long term (current) use of inhaled steroids; Z79.4 Long term (current) use of insulin; Z79.899 Other long term (current) drug therapy
CPT/HCPCS: 71045; 71275; 74177; 80048; 80076; 82077; 82550; 82553; 83690; 83880; 85025; 93005; 93041; 94760; 96374; 96375; 99285; J1815; J2405; Q9967

== ENCOUNTER → 2023-12-28 | Outpatient (CLI) | payer MEDICAID | LOC: M RAD 09:20 | PROVIDERS: ATTEND Physician Assistant | DX: M79.604 Pain in right leg (principal) ==

== ENCOUNTER 2024-03-31 21:27 | Emergency (ER) | payer MEDICAID ==
[~2024-03-31] VITALS: Ht 175.3 cm; Wt 109.1 kg
[~2024-03-31 21:27] MED LIST changes: +ONDA-282 PO; -ONDA4TAB6 PO
[2024-03-31 21:39] VITALS: BP 155/93; TEMP 96.6
[2024-03-31 22:04] LABS: BASO # 0.1 10^3/uL (0.0-0.2); BASO % 0.8 % (0.0-1.0); EOS # 0.5 10^3/uL (0.0-0.5); EOS % 6.4 % (0.0-3.0); HEMATOCRIT 38.7 % (42.0-52.0); HEMOGLOBIN 13.5 g/dl (13.5-17.5); LYMPH # 2.3 10^3/uL (1.5-5.0); LYMPH % 30.7 % (24.0-44.0); MEAN CORPUSCULAR HEMOGLOBIN 28.4 pg (27.0-33.0); MEAN CORPUSCULAR HGB CONC 34.9 g/dl (32.0-36.5); MEAN CORPUSCULAR VOLUME 81.5 fl (80.0-96.0); MONO # 0.7 10^3/uL (0.0-0.8); MONO % 9.7 % (2.0-8.0); NEUTROPHILS # 3.9 10^3/uL (1.5-8.5); NEUTROPHILS % 51.9 % (36.0-66.0); PLATELET COUNT, AUTOMATED 209 10^3/uL (150-450); RED BLOOD COUNT 4.75 10^6/uL (4.30-6.10); WHITE BLOOD COUNT 7.6 10^3/uL (4.0-10.0)
[2024-03-31 22:21] LABS: BLOOD UREA NITROGEN 21 MG/DL (9-23); CALCIUM LEVEL 9.3 MG/DL (8.5-10.1); CARBON DIOXIDE LEVEL 30 MMOL/L (20-31); CHLORIDE LEVEL 103 MMOL/L (98-107); CREATININE FOR GFR 0.94 MG/DL (0.70-1.30); GLOMERULAR FILTRATION RATE > 60.0 (>56); GLUCOSE, FASTING 343 MG/DL (60-100); SODIUM LEVEL 139 MMOL/L (136-145)
[2024-03-31 22:28] LABS: PROCALCITONIN <0.04 ng/ml
[2024-03-31] MEDS: GABAPENTIN 300 MG CAP PO ONE (23:00)
[2024-04-01] MEDS ORDERED: PERC5TAB12 PO
[2024-04-01 00:14] VITALS: O2SAT 97
[2024-04-01] MEDS: PERCOCET 5MG/325MG TAB PO ONE (00:14)
== END 2024-04-01 00:18 | disposition home or self-care (01) ==
LOC: M ED 21:27 → EDBD 21:27 → M ED 04-01 00:18
DX: M25.561 Pain in right knee (principal); E11.621 Type 2 diabetes mellitus with foot ulcer; I25.119 Atherosclerotic heart disease of native coronary artery with unspecified angina pectoris; I25.2 Old myocardial infarction; I10 Essential (primary) hypertension; F17.290 Nicotine dependence, other tobacco product, uncomplicated; F10.10 Alcohol abuse, uncomplicated; Z88.7 Allergy status to serum and vaccine; Z88.0 Allergy status to penicillin; Z88.8 Allergy status to other drugs, medicaments and biological substances; Z91.012 Allergy to eggs; Z91.048 Other nonmedicinal substance allergy status; Z79.51 Long term (current) use of inhaled steroids; Z79.4 Long term (current) use of insulin; Z79.899 Other long term (current) drug therapy

== ENCOUNTER → 2024-06-12 | Outpatient (CLI) | payer MEDICAID ==
[~2024-06-12] MED LIST changes: +PERC5TAB12 PO
== END ==
LOC: M LAB 11:12
PROVIDERS: ATTEND Physician Assistant
DX: E11.621 Type 2 diabetes mellitus with foot ulcer (principal)

== ENCOUNTER 2024-07-21 01:01 | Emergency (ER) | payer MEDICAID ==
[~2024-07-21] VITALS: Ht 175.3 cm; Wt 104.7 kg
[~2024-07-21 01:01] MED LIST changes: -CYCL5TAB PO; +CYCL5TAB4 PO
[2024-07-21] MEDS ORDERED: METH-1165 PO (02:02)
[2024-07-21] MEDS: methocarbamoL 750 MG TAB PO ONE (02:03)
[2024-07-21] MEDS: PERCOCET 5MG/325MG TAB PO ONE (02:04)
[2024-07-21 02:28] VITALS: BP 149/93; TEMP 97.2; O2SAT 96
== END 2024-07-21 02:31 | disposition home or self-care (01) ==
LOC: EDBD 01:01 → M ED 01:01
DX: M54.50 Low back pain, unspecified (principal); E11.9 Type 2 diabetes mellitus without complications; I10 Essential (primary) hypertension; Z88.7 Allergy status to serum and vaccine; Z88.0 Allergy status to penicillin; Z88.8 Allergy status to other drugs, medicaments and biological substances; Z91.012 Allergy to eggs; Z79.51 Long term (current) use of inhaled steroids; Z79.4 Long term (current) use of insulin; Z79.899 Other long term (current) drug therapy

== ENCOUNTER 2024-08-12 18:59 | Emergency (ER) | payer MEDICAID ==
[~2024-08-12] VITALS: Ht 175.3 cm; Wt 106.3 kg
[~2024-08-12 18:59] MED LIST changes: +METH-1165 PO
[2024-08-12] MEDS: KETOROLAC 30 MG/ML 1ML VIAL IV ONE (20:12)
[2024-08-12] MEDS: METOCLOPRAMIDE INJ 10MG/2ML VIAL IV ONE (20:16)
[2024-08-12 20:19] LABS: BASO # 0.1 10^3/uL (0.0-0.2); BASO % 0.9 % (0.0-1.0); EOS # 0.7 10^3/uL (0.0-0.5); EOS % 6.9 % (0.0-3.0); HEMATOCRIT 43.8 % (42.0-52.0); HEMOGLOBIN 14.9 g/dl (13.5-17.5); LYMPH # 2.2 10^3/uL (1.5-5.0); MEAN CORPUSCULAR HEMOGLOBIN 27.6 pg (27.0-33.0); MEAN CORPUSCULAR VOLUME 81.3 fl (80.0-96.0); MONO # 0.6 10^3/uL (0.0-0.8); MONO % 6.1 % (2.0-8.0); NEUTROPHILS # 5.9 10^3/uL (1.5-8.5); NEUTROPHILS % 62.2 % (36.0-66.0); PLATELET COUNT, AUTOMATED 260 10^3/uL (150-450); RED BLOOD COUNT 5.39 10^6/uL (4.30-6.10); WHITE BLOOD COUNT 9.5 10^3/uL (4.0-10.0)
[2024-08-12 20:26] LABS: ERYTHROCYTE SEDIMENTATION RATE 41 mm/hr (0-20)
[2024-08-12 20:42] LABS: CK-MB VALUE MASS < 1.0 NG/ML (<3.6)
[2024-08-12 20:44] LABS: BLOOD UREA NITROGEN 18 MG/DL (9-23); CALCIUM LEVEL 9.5 MG/DL (8.5-10.1); CARBON DIOXIDE LEVEL 26 MMOL/L (20-31); CHLORIDE LEVEL 102 MMOL/L (98-107); CREATININE FOR GFR 0.73 MG/DL (0.70-1.30); GLOMERULAR FILTRATION RATE > 60.0 (>56); GLUCOSE, FASTING 298 MG/DL (60-100); POTASSIUM SERUM 4.6 MMOL/L (3.5-5.1); SODIUM LEVEL 138 MMOL/L (136-145)
[2024-08-12 20:46] LABS: THYROID STIMULATING HORMONE 0.587 uIU/ML (0.55-4.78)
[2024-08-12 20:47] LABS: FREE T4 1.24 NG/DL (0.89-1.76)
[2024-08-12 20:49] LABS: CPK CREATINE PHOSPHOKINASE 36 U/L (46-171); MB/CK RELATIVE INDEX 2.77 (< OR =4)
[2024-08-12 21:25] LABS: CK-MB VALUE MASS < 1.0 NG/ML (<3.6)
[2024-08-12 21:28] LABS: CPK CREATINE PHOSPHOKINASE 43 U/L (46-171); MB/CK RELATIVE INDEX 2.32 (< OR =4)
[2024-08-12 22:39] VITALS: BP 167/88; TEMP 98; O2SAT 97
== END 2024-08-12 22:50 | disposition home or self-care (01) ==
LOC: M ED 18:59
DX: R07.89 Other chest pain (principal); G43.909 Migraine, unspecified, not intractable, without status migrainosus; I45.81 Long QT syndrome; I44.7 Left bundle-branch block, unspecified; E11.9 Type 2 diabetes mellitus without complications; I10 Essential (primary) hypertension; I25.119 Atherosclerotic heart disease of native coronary artery with unspecified angina pectoris; Z88.0 Allergy status to penicillin; Z88.8 Allergy status to other drugs, medicaments and biological substances; Z88.7 Allergy status to serum and vaccine; Z91.012 Allergy to eggs; Z91.011 Allergy to milk products; Z79.51 Long term (current) use of inhaled steroids; Z79.4 Long term (current) use of insulin; Z79.899 Other long term (current) drug therapy
CPT/HCPCS: 71045; 80048; 82550; 82553; 83880; 84439; 84443; 84484; 85025; 85652; 87486; 87581; 87633; 87798; 93005; 93041; 94760; 96374; 96375; 99285; J1100; J1885; J2765

== ENCOUNTER 2024-08-20 17:32 | Emergency (ER) | payer MEDICAID ==
[~2024-08-20] VITALS: Ht 175.3 cm; Wt 107.6 kg
[2024-08-20 18:18] LABS: VENOUS BASE EXCESS -3.1 (-2.0-2.0); VENOUS HCO3 22.7 MMOL/L (23.0-27.0); VENOUS O2 SATURATION 79.1 % (60.0-80.0); VENOUS PARTIAL PRESSURE CO2 43.6 mmHg (38.0-50.0); VENOUS PARTIAL PRESSURE O2 42.8 mmHg (30.0-50.0); VENOUS PH 7.335 UNITS (7.330-7.430); VENOUS STANDARD HCO3 21.4 MMOL/L; VENOUS TOTAL CO2 24.1 MMOL/L (24.0-28.0)
[2024-08-20 18:35] LABS: BASO # 0.1 10^3/uL (0.0-0.2); BASO % 0.6 % (0.0-1.0); EOS # 0.4 10^3/uL (0.0-0.5); EOS % 5.6 % (0.0-3.0); HEMATOCRIT 44.2 % (42.0-52.0); HEMOGLOBIN 15.1 g/dl (13.5-17.5); LYMPH # 1.9 10^3/uL (1.5-5.0); LYMPH % 24.7 % (24.0-44.0); MEAN CORPUSCULAR HEMOGLOBIN 27.7 pg (27.0-33.0); MEAN CORPUSCULAR HGB CONC 34.2 g/dl (32.0-36.5); MONO # 0.6 10^3/uL (0.0-0.8); MONO % 7.1 % (2.0-8.0); NEUTROPHILS # 4.8 10^3/uL (1.5-8.5); NEUTROPHILS % 61.4 % (36.0-66.0); RED BLOOD COUNT 5.46 10^6/uL (4.30-6.10); WHITE BLOOD COUNT 7.7 10^3/uL (4.0-10.0)
[2024-08-20 18:48] LABS: LIPASE 180 U/L (12-53)
[2024-08-20 18:50] LABS: ACETONE/KETONE 0.11 MMOL/L (0.02-0.27)
[2024-08-20 18:54] LABS: ALBUMIN 3.6 G/DL (3.2-5.2); ALKALINE PHOSPHATASE 117 U/L (40-129); ALT/SGPT 15 U/L (7.0-40); AST/SGOT 12 U/L (<34); BILIRUBIN,DIRECT < 0.1 MG/DL (<0.4); BILIRUBIN,TOTAL 0.3 MG/DL (0.3-1.2); BLOOD UREA NITROGEN 21 MG/DL (9-23); CALCIUM LEVEL 9.4 MG/DL (8.5-10.1); CARBON DIOXIDE LEVEL 23 MMOL/L (20-31); CHLORIDE LEVEL 96 MMOL/L (98-107); CREATININE FOR GFR 0.87 MG/DL (0.70-1.30); GLOMERULAR FILTRATION RATE > 60.0 (>56); GLUCOSE, FASTING 610 MG/DL (60-100); MAGNESIUM LEVEL 2.2 MG/DL (1.8-2.4); POTASSIUM SERUM 4.6 MMOL/L (3.5-5.1); SODIUM LEVEL 132 MMOL/L (136-145); TOTAL PROTEIN 7.9 G/DL (5.7-8.2)
[2024-08-20 18:55] LABS: HEMOGLOBIN A1c 12.1 % (4.0-6.0)
[2024-08-20] MEDS: HumuLIN R (REGULAR) INSULIN (NovoLIN R) **100U/ML** PER UNIT IV ONE (20:28)
[2024-08-20] MEDS: MORPHINE 2 MG/ML 1ML VIAL IV ONE (20:48)
[2024-08-20 21:55] VITALS: BP 102/81; TEMP 97.2; O2SAT 98
== END 2024-08-20 22:07 | disposition home or self-care (01) ==
LOC: M ED 17:32
DX: M79.605 Pain in left leg (principal); E11.65 Type 2 diabetes mellitus with hyperglycemia; I10 Essential (primary) hypertension; I25.119 Atherosclerotic heart disease of native coronary artery with unspecified angina pectoris; Z88.0 Allergy status to penicillin; Z88.7 Allergy status to serum and vaccine; Z91.012 Allergy to eggs; Z91.018 Allergy to other foods; Z79.51 Long term (current) use of inhaled steroids; Z79.4 Long term (current) use of insulin; Z79.899 Other long term (current) drug therapy
CPT/HCPCS: 73080; 73110; 73552; 80048; 80076; 81001; 82010; 82803; 83036; 83690; 83735; 85025; 93005; 93041; 93971; 94760; 96374; 96375; 99285; J1815

== ENCOUNTER 2024-09-29 14:35 | Inpatient (IN) | payer MEDICAID ==
[~2024-09-29] VITALS: Ht 167.6 cm; Wt 116.7 kg
[2024-09-29 16:03] LABS: BASO # 0.1 10^3/uL (0.0-0.2); BASO % 0.8 % (0.0-1.0); EOS # 0.8 10^3/uL (0.0-0.5); HEMATOCRIT 37.3 % (42.0-52.0); HEMOGLOBIN 12.8 g/dl (13.5-17.5); LYMPH # 1.7 10^3/uL (1.5-5.0); LYMPH % 15.7 % (24.0-44.0); MEAN CORPUSCULAR HEMOGLOBIN 27.8 pg (27.0-33.0); MEAN CORPUSCULAR HGB CONC 34.3 g/dl (32.0-36.5); MEAN CORPUSCULAR VOLUME 81.1 fl (80.0-96.0); MONO # 0.9 10^3/uL (0.0-0.8); MONO % 7.8 % (2.0-8.0); NEUTROPHILS # 7.4 10^3/uL (1.5-8.5); NEUTROPHILS % 68.1 % (36.0-66.0); PLATELET COUNT, AUTOMATED 186 10^3/uL (150-450); WHITE BLOOD COUNT 10.9 10^3/uL (4.0-10.0)
[2024-09-29] MEDS: ACETAMINOPHEN 325 MG TAB PO ONE (16:03)
[2024-09-29 16:30] LABS: ERYTHROCYTE SEDIMENTATION RATE 21 mm/hr (0-20)
[2024-09-29 16:32] LABS: ALBUMIN 3.8 G/DL (3.2-5.2); ALKALINE PHOSPHATASE 70 U/L (40-129); ALT/SGPT 21 U/L (7.0-40); AST/SGOT 17 U/L (<34); BILIRUBIN,TOTAL 0.4 MG/DL (0.3-1.2); BLOOD UREA NITROGEN 23 MG/DL (9-23); CALCIUM LEVEL 8.7 MG/DL (8.5-10.1); CARBON DIOXIDE LEVEL 24 MMOL/L (20-31); CHLORIDE LEVEL 109 MMOL/L (98-107); CREATININE FOR GFR 0.81 MG/DL (0.70-1.30); GLOMERULAR FILTRATION RATE > 60.0 (>56); GLUCOSE, FASTING 127 MG/DL (60-100); SODIUM LEVEL 145 MMOL/L (136-145); TOTAL PROTEIN 7.1 G/DL (5.7-8.2)
[2024-09-29 16:39] LABS: C REACTIVE PROTEIN QUANTITATIV < 0.50 MG/DL (<1.0)
[2024-09-29] MEDS ORDERED: MED REC IN PROGRESS XX SCH (17:15)
[2024-09-29] MEDS ORDERED: ACETAMINOPHEN 325 MG TAB PO PRN (18:45)
[2024-09-29 20:02] VITALS: BP 138/86; TEMP 97.9; O2SAT 97
[2024-09-29] MEDS ORDERED: GLUCAGON INJ 1MG VIAL SC PRN (20:35)
[2024-09-29] MEDS ORDERED: GLUCOSE 4 GM CHEW PO PRN (20:35)
[2024-09-29] MEDS ORDERED: DEXTROSE 50% 50ML SYRINGE IV PRN (20:35)
[2024-09-29] MEDS ORDERED: ALBUTEROL 90 MCG/ACT 8GM HFA INHALER INH PRN (20:50)
[2024-09-29] MEDS ORDERED: CALCIUM CARBONATE 500 MG CHEW U/D PO PRN (20:55)
[2024-09-29] MEDS: INSULIN LISPRO (NovoLOG) PER UNIT SC SCH (21:00)
[2024-09-29] MEDS: DOCUSATE SODIUM 100MG CAPSULE PO SCH (21:39)
[2024-09-29] MEDS: oxyCODONE 5MG TAB PO PRN (21:39)
[2024-09-29] MEDS: cefTRIAXone SOD 2 GM in DEXTROSE 5% (D5W) ADV/MINI-BAG 50 ML IV SCH (22:39)
[2024-09-29] MEDS: LEVEMIR (INSULIN DETEMIR) 1 UNITS/0.01ML SC SCH (22:39)
[2024-09-29] MEDS ORDERED: DULA4.5P SC (22:45)
[2024-09-29] MEDS ORDERED: DICL100G10 TOP (22:45)
[2024-09-29] MEDS ORDERED: LANTINJ4 SC (22:45)
[2024-09-29] MEDS ORDERED: OXYC-517 PO (22:45)
[2024-09-29] MEDS ORDERED: NITR0.4S14 SL (22:45)
[2024-09-29] MEDS ORDERED: PANT40TA29 PO (22:45)
[2024-09-29] MEDS ORDERED: INSUR SC (22:45)
[2024-09-29] MEDS ORDERED: APAP325T4 PO (22:48)
[2024-09-29] MEDS ORDERED: HOME MED LIST COMPLETE! XX SCH ×3 (22:50→23:25)
[2024-09-29] MEDS ORDERED: INSU100V6 SQ (23:12)
[2024-09-29] MEDS ORDERED: GABA-1172 PO (23:21)
[2024-09-29] MEDS ORDERED: AMLO1TAB24 PO (23:21)
[2024-09-29] MEDS ORDERED: ATOR40TA75 PO (23:21)
[2024-09-29] MEDS: ATORVASTATIN 20 MG TAB PO SCH (23:29)
[2024-09-29] MEDS: GABAPENTIN 300 MG CAP PO SCH (23:29)
[2024-09-30 04:34] VITALS: BP 134/84; TEMP 97.9; O2SAT 94
[2024-09-30 06:43] LABS: BASO # 0.1 10^3/uL (0.0-0.2); BASO % 0.9 % (0.0-1.0); EOS # 0.8 10^3/uL (0.0-0.5); EOS % 9.8 % (0.0-3.0); HEMATOCRIT 37.3 % (42.0-52.0); HEMOGLOBIN 12.3 g/dl (13.5-17.5); LYMPH # 1.7 10^3/uL (1.5-5.0); LYMPH % 22.1 % (24.0-44.0); MEAN CORPUSCULAR HEMOGLOBIN 26.9 pg (27.0-33.0); MEAN CORPUSCULAR VOLUME 81.4 fl (80.0-96.0); MONO # 0.8 10^3/uL (0.0-0.8); MONO % 9.5 % (2.0-8.0); NEUTROPHILS # 4.5 10^3/uL (1.5-8.5); NEUTROPHILS % 57.2 % (36.0-66.0); PLATELET COUNT, AUTOMATED 178 10^3/uL (150-450); RED BLOOD COUNT 4.58 10^6/uL (4.30-6.10); WHITE BLOOD COUNT 7.9 10^3/uL (4.0-10.0)
[2024-09-30 06:56] LABS: INR 1.04; PARTIAL THROMBOPLASTIN TIME 29.7 SECONDS (24.8-34.2); PROTHROMBIN TIME 13.9 SECONDS (12.5-14.5)
[2024-09-30 07:08] LABS: BLOOD UREA NITROGEN 18 MG/DL (9-23); CARBON DIOXIDE LEVEL 26 MMOL/L (20-31); CHLORIDE LEVEL 109 MMOL/L (98-107); GLOMERULAR FILTRATION RATE > 60.0 (>56); GLUCOSE, FASTING 104 MG/DL (60-100); SODIUM LEVEL 145 MMOL/L (136-145)
[2024-09-30] MEDS: INSULIN LISPRO (NovoLOG) PER UNIT SC SCH (07:30)
[2024-09-30] MEDS: LACTOBACILLUS ACIDOPHILUS CAP (BACID) PO SCH (08:17)
[2024-09-30 08:18] VITALS: BP 142/92
[2024-09-30] MEDS: ENOXAPARIN 40MG/0.4ML SYRINGE (J1650 PER 10MG) SC SCH (08:18)
[2024-09-30] MEDS: amLODIPine 5 MG TAB PO SCH (08:18)
[2024-09-30] MEDS: PANTOPRAZOLE 40MG TAB (PROTONIX) PO SCH (08:18)
[2024-09-30 12:00] VITALS: BP 143/93; TEMP 97.9; O2SAT 95
[2024-09-30 20:43] VITALS: BP 169/84; TEMP 98.1; O2SAT 94
[2024-10-01 04:00] VITALS: BP 134/81; TEMP 97.9; O2SAT 97
[2024-10-01 06:08] LABS: BASO # 0.1 10^3/uL (0.0-0.2); BASO % 0.9 % (0.0-1.0); EOS # 0.8 10^3/uL (0.0-0.5); EOS % 11.8 % (0.0-3.0); HEMATOCRIT 37.7 % (42.0-52.0); HEMOGLOBIN 12.7 g/dl (13.5-17.5); LYMPH # 1.7 10^3/uL (1.5-5.0); LYMPH % 24.2 % (24.0-44.0); MEAN CORPUSCULAR HEMOGLOBIN 27.4 pg (27.0-33.0); MEAN CORPUSCULAR HGB CONC 33.7 g/dl (32.0-36.5); MEAN CORPUSCULAR VOLUME 81.4 fl (80.0-96.0); MONO # 0.6 10^3/uL (0.0-0.8); NEUTROPHILS # 3.8 10^3/uL (1.5-8.5); NEUTROPHILS % 53.4 % (36.0-66.0); PLATELET COUNT, AUTOMATED 188 10^3/uL (150-450); RED BLOOD COUNT 4.63 10^6/uL (4.30-6.10)
[2024-10-01 06:22] LABS: BLOOD UREA NITROGEN 15 MG/DL (9-23); CALCIUM LEVEL 9.1 MG/DL (8.5-10.1); CARBON DIOXIDE LEVEL 28 MMOL/L (20-31); CHLORIDE LEVEL 108 MMOL/L (98-107); CREATININE FOR GFR 0.86 MG/DL (0.70-1.30); GLOMERULAR FILTRATION RATE > 60.0 (>56); GLUCOSE, FASTING 138 MG/DL (60-100); POTASSIUM SERUM 4.1 MMOL/L (3.5-5.1); SODIUM LEVEL 144 MMOL/L (136-145)
[2024-10-01 12:00] VITALS: BP 153/103; TEMP 98.1; O2SAT 96
[2024-10-01] MEDS ORDERED: NS (Normal Saline) 0.9% 1,000 ML IV SCH (12:05)
[2024-10-01] MEDS ORDERED: ACETAMINOPHEN 1000MG/100ML IV BAG As Ordered ONE (15:01)
[2024-10-01] MEDS ORDERED: fentaNYL 100 MCG/2 ML INJECTION As Ordered ONE (15:02)
[2024-10-01] MEDS ORDERED: MIDAZOLAM INJ 2MG/2ML VIAL As Ordered ONE (15:02)
[2024-10-01] MEDS ORDERED: ONDANSETRON 4MG 2ML VIAL As Ordered ONE (15:02)
[2024-10-01] MEDS ORDERED: LIDOCAINE 2% 100MG/5ML SDV (FOR ANES.) As Ordered ONE (15:03)
[2024-10-01] MEDS: LIDOCAINE 1% SDV 30ML VIAL As Ordered ONE (15:25)
[2024-10-01] MEDS ORDERED: ONDANSETRON 4MG 2ML VIAL IV PRN (15:55)
[2024-10-01] MEDS ORDERED: oxyCODONE 5MG TAB PO PRN (15:55)
[2024-10-01] MEDS ORDERED: MORPHINE 2 MG/ML 1ML VIAL IV PRN (15:55)
[2024-10-01 16:30] VITALS: BP 123/74; TEMP 98.1; O2SAT 94
[2024-10-01 20:15] VITALS: BP 122/91; TEMP 97.7; O2SAT 92
== END 2024-10-02 06:15 | disposition home or self-care (01) | DRG 314 ==
LOC: M ED 14:35 → EDBD 14:35 → M ED INP 18:41 → M MS5PR 19:44
PROVIDERS: ADMIT Internal Medicine Nephrology; ATTEND Internal Medicine Nephrology
PROC: 0QBN0ZZ Excision of Right Metatarsal, Open Approach (ICD-10-PCS; principal; 2024-10-01 13:30)
DX: E11.69 Type 2 diabetes mellitus with other specified complication (principal); M86.671 Other chronic osteomyelitis, right ankle and foot; E11.42 Type 2 diabetes mellitus with diabetic polyneuropathy; E11.621 Type 2 diabetes mellitus with foot ulcer; B95.61 Methicillin susceptible Staphylococcus aureus infection as the cause of diseases classified elsewhere; I44.7 Left bundle-branch block, unspecified; I10 Essential (primary) hypertension; E78.5 Hyperlipidemia, unspecified; K21.9 Gastro-esophageal reflux disease without esophagitis; F17.220 Nicotine dependence, chewing tobacco, uncomplicated; J44.9 Chronic obstructive pulmonary disease, unspecified; G89.29 Other chronic pain; Z79.4 Long term (current) use of insulin; Z79.2 Long term (current) use of antibiotics; Z79.899 Other long term (current) drug therapy; Z88.0 Allergy status to penicillin; Z88.6 Allergy status to analgesic agent; Z88.8 Allergy status to other drugs, medicaments and biological substances; Z91.048 Other nonmedicinal substance allergy status; Z91.011 Allergy to milk products; Z91.012 Allergy to eggs; Z86.73 Personal history of transient ischemic attack (TIA), and cerebral infarction without residual deficits; Z90.49 Acquired absence of other specified parts of digestive tract; Z96.0 Presence of urogenital implants; R78.81 Bacteremia

== ENCOUNTER → 2024-10-11 | Outpatient (REF) | payer MEDICAID ==
[~2024-10-11] MED LIST changes: +AMLO1TAB24 PO; +APAP325T4 PO; +DICL100G10 TOP; +DULA4.5P SC; +GABA-1172 PO; +INSU100V6 SQ; +INSUR SC; +PANT40TA29 PO
== END ==
LOC: M LAB REF 16:13
PROVIDERS: ATTEND Podiatrist Foot & Ankle Surgery
DX: L03.115 Cellulitis of right lower limb (principal)

== ENCOUNTER 2024-10-17 15:28 | Emergency (ER) | payer MEDICAID ==
[~2024-10-17] VITALS: Ht 175.3 cm; Wt 111.4 kg
[2024-10-17 15:43] VITALS: TEMP 97.8
[2024-10-17 18:32] LABS: KETONE, URINE AUTO RFX NEGATIVE (NEGATIVE); LEUKOCYTE ESTERASE UR AUTO RFX NEGATIVE (NEGATIVE); MUCUS, URINE RFX SMALL (NEGATIVE); NITRITE, URINE AUTO RFX NEGATIVE (NEGATIVE); RBC, URINE AUTO RFX 0 /HPF (0-3); SQUAM EPITHELIAL CELL UR AURFX 0 /HPF (0-6); WBC, URINE AUTO RFX 1 /HPF (0-3)
[2024-10-17 18:35] LABS: BASO # 0.1 10^3/uL (0.0-0.2); BASO % 0.6 % (0.0-1.0); EOS # 0.4 10^3/uL (0.0-0.5); EOS % 4.1 % (0.0-3.0); HEMATOCRIT 32.6 % (42.0-52.0); LYMPH # 1.6 10^3/uL (1.5-5.0); LYMPH % 16.3 % (24.0-44.0); MEAN CORPUSCULAR HEMOGLOBIN 27.2 pg (27.0-33.0); MEAN CORPUSCULAR HGB CONC 33.7 g/dl (32.0-36.5); MEAN CORPUSCULAR VOLUME 80.5 fl (80.0-96.0); MONO # 0.8 10^3/uL (0.0-0.8); MONO % 8.1 % (2.0-8.0); NEUTROPHILS # 6.8 10^3/uL (1.5-8.5); NEUTROPHILS % 70.2 % (36.0-66.0); PLATELET COUNT, AUTOMATED 493 10^3/uL (150-450); RED BLOOD COUNT 4.05 10^6/uL (4.30-6.10); WHITE BLOOD COUNT 9.7 10^3/uL (4.0-10.0)
[2024-10-17 19:05] LABS: ALBUMIN 2.7 G/DL (3.2-5.2); ALKALINE PHOSPHATASE 73 U/L (40-129); ALT/SGPT 13 U/L (7.0-40); AST/SGOT 33 U/L (<34); BILIRUBIN,DIRECT 0.1 MG/DL (<0.4); BILIRUBIN,TOTAL 0.4 MG/DL (0.3-1.2); BLOOD UREA NITROGEN 12 MG/DL (9-23); CALCIUM LEVEL 8.7 MG/DL (8.5-10.1); CARBON DIOXIDE LEVEL 26 MMOL/L (20-31); CHLORIDE LEVEL 102 MMOL/L (98-107); CREATININE FOR GFR 0.76 MG/DL (0.70-1.30); GLOMERULAR FILTRATION RATE > 60.0 (>56); GLUCOSE, FASTING 158 MG/DL (60-100); POTASSIUM SERUM 5.9 MMOL/L (3.5-5.1); SODIUM LEVEL 138 MMOL/L (136-145); TOTAL PROTEIN 7.3 G/DL (5.7-8.2)
[2024-10-17] MEDS: MORPHINE 2 MG/ML 1ML VIAL IV ONE (19:05)
[2024-10-17] MEDS ORDERED: PROT1TAB2 PO (20:22)
[2024-10-17] MEDS: PATIROMER SORBITEX CALCIUM 8.4 GM POWDER PACKET (VELTASSA) PO ONE (21:30)
[2024-10-17 21:31] VITALS: BP 186/116; O2SAT 98
[2024-10-18] MEDS ORDERED: COLA100C5 PO (13:10)
== END 2024-10-17 21:39 | disposition home or self-care (01) ==
LOC: EDBD 15:28 → M ED 15:28
DX: K80.50 Calculus of bile duct without cholangitis or cholecystitis without obstruction (principal); Q44.1 Other congenital malformations of gallbladder; E87.5 Hyperkalemia; E11.9 Type 2 diabetes mellitus without complications; Z88.0 Allergy status to penicillin; Z88.7 Allergy status to serum and vaccine; Z88.8 Allergy status to other drugs, medicaments and biological substances; Z91.012 Allergy to eggs; Z91.011 Allergy to milk products; Z79.1 Long term (current) use of non-steroidal anti-inflammatories (NSAID); Z79.51 Long term (current) use of inhaled steroids; Z79.4 Long term (current) use of insulin; Z79.899 Other long term (current) drug therapy

== ENCOUNTER 2024-10-18 06:34 | Emergency (ER) | payer MEDICAID ==
[~2024-10-18] VITALS: Ht 175.3 cm; Wt 111.4 kg
[~2024-10-18 06:34] MED LIST changes: +PROT1TAB2 PO
[2024-10-18 08:27] LABS: KETONE, URINE AUTO RFX NEGATIVE (NEGATIVE); LEUKOCYTE ESTERASE UR AUTO RFX NEGATIVE (NEGATIVE); MUCUS, URINE RFX SMALL (NEGATIVE); NITRITE, URINE AUTO RFX NEGATIVE (NEGATIVE); RBC, URINE AUTO RFX 1 /HPF (0-3); SQUAM EPITHELIAL CELL UR AURFX 0 /HPF (0-6); WBC, URINE AUTO RFX 1 /HPF (0-3)
[2024-10-18 11:39] LABS: BASO # 0.1 10^3/uL (0.0-0.2); BASO % 0.5 % (0.0-1.0); EOS # 0.3 10^3/uL (0.0-0.5); EOS % 2.8 % (0.0-3.0); HEMATOCRIT 33.2 % (42.0-52.0); HEMOGLOBIN 11.4 g/dl (13.5-17.5); LYMPH # 1.5 10^3/uL (1.5-5.0); LYMPH % 13.3 % (24.0-44.0); MEAN CORPUSCULAR HGB CONC 34.3 g/dl (32.0-36.5); MEAN CORPUSCULAR VOLUME 78.7 fl (80.0-96.0); MONO # 0.9 10^3/uL (0.0-0.8); MONO % 8.5 % (2.0-8.0); NEUTROPHILS # 8.2 10^3/uL (1.5-8.5); NEUTROPHILS % 74.1 % (36.0-66.0); PLATELET COUNT, AUTOMATED 514 10^3/uL (150-450); RED BLOOD COUNT 4.22 10^6/uL (4.30-6.10); WHITE BLOOD COUNT 11.1 10^3/uL (4.0-10.0)
[2024-10-18 12:07] LABS: LIPASE 23 U/L (12-53)
[2024-10-18 12:09] LABS: ALBUMIN 2.7 G/DL (3.2-5.2); ALKALINE PHOSPHATASE 78 U/L (40-129); ALT/SGPT 10 U/L (7.0-40); AST/SGOT < 8 U/L (<34); BILIRUBIN,DIRECT 0.1 MG/DL (<0.4); BILIRUBIN,TOTAL 0.4 MG/DL (0.3-1.2); TOTAL PROTEIN 7.3 G/DL (5.7-8.2)
[2024-10-18] MEDS: ACETAMINOPHEN *IV* 1,000 MG in IV 1 EA IV ONE (12:30)
[2024-10-18] MEDS: MAGNESIUM CITRATE 300ML BTL PO ONE (13:10)
[2024-10-18] MEDS ORDERED: COLA100C5 PO (13:10)
[2024-10-18 13:23] VITALS: BP 142/85; TEMP 97.8; O2SAT 96
== END 2024-10-18 13:20 | disposition home or self-care (01) ==
LOC: M ED 06:34 → EDBD 06:34 → M ED 13:20
DX: K59.00 Constipation, unspecified (principal); E11.9 Type 2 diabetes mellitus without complications; Z88.0 Allergy status to penicillin; Z88.8 Allergy status to other drugs, medicaments and biological substances; Z88.7 Allergy status to serum and vaccine; Z91.012 Allergy to eggs; Z91.011 Allergy to milk products; Z79.1 Long term (current) use of non-steroidal anti-inflammatories (NSAID); Z79.51 Long term (current) use of inhaled steroids; Z79.4 Long term (current) use of insulin; Z79.899 Other long term (current) drug therapy
CPT/HCPCS: 74176; 80047; 80076; 81001; 83690; 85025; 96365; 99284; J0131

== ENCOUNTER 2024-10-21 05:32 | Inpatient (IN) | payer MEDICAID ==
[~2024-10-21] VITALS: Ht 170.2 cm; Wt 110.5 kg
[2024-10-21] VITALS (10 sets, daily range): BP systolic 133–158; BP diastolic 82–104; TEMP 97.3–97.9; O2SAT 91–95
[~2024-10-21 05:32] MED LIST changes: +COLA100C5 PO
[2024-10-21] MEDS ORDERED: LEVEMIR (INSULIN DETEMIR) 1 UNITS/0.01ML SC SCH (10:35)
[2024-10-21] MEDS ORDERED: ALBUTEROL SULFATE 2.5MG/0.5ML INH NEB SOLN NEB PRN (10:35)
[2024-10-21] MEDS ORDERED: DEXTROSE 50% 50ML SYRINGE IV PRN (10:45)
[2024-10-21] MEDS ORDERED: GLUCAGON INJ 1MG VIAL SC PRN (10:45)
[2024-10-21] MEDS ORDERED: GLUCOSE 4 GM CHEW PO PRN (10:45)
[2024-10-21 11:28] LABS: ALBUMIN 2.8 G/DL (3.2-5.2); ALKALINE PHOSPHATASE 81 U/L (40-129); ALT/SGPT 10 U/L (7.0-40); AST/SGOT < 8 U/L (<34); BILIRUBIN,TOTAL 0.3 MG/DL (0.3-1.2); BLOOD UREA NITROGEN 8 MG/DL (9-23); CALCIUM LEVEL 8.7 MG/DL (8.5-10.1); CARBON DIOXIDE LEVEL 26 MMOL/L (20-31); CHLORIDE LEVEL 100 MMOL/L (98-107); CREATININE FOR GFR 0.79 MG/DL (0.70-1.30); GLOMERULAR FILTRATION RATE > 60.0 (>56); GLUCOSE, FASTING 286 MG/DL (60-100); POTASSIUM SERUM 4.2 MMOL/L (3.5-5.1); SODIUM LEVEL 135 MMOL/L (136-145); TOTAL PROTEIN 7.3 G/DL (5.7-8.2)
[2024-10-21 11:40] LABS: PROCALCITONIN 0.12 ng/ml
[2024-10-21] MEDS: oxyCODONE 5MG TAB PO PRN (11:44)
[2024-10-21] MEDS: INSULIN LISPRO (NovoLOG) PER UNIT SC SCH ×2 (12:47→22:37)
[2024-10-21 13:04] LABS: KETONE, URINE AUTO RFX NEGATIVE (NEGATIVE); LEUKOCYTE ESTERASE UR AUTO RFX NEGATIVE (NEGATIVE); MUCUS, URINE RFX SMALL (NEGATIVE); NITRITE, URINE AUTO RFX NEGATIVE (NEGATIVE); RBC, URINE AUTO RFX 0 /HPF (0-3); SQUAM EPITHELIAL CELL UR AURFX 0 /HPF (0-6); WBC, URINE AUTO RFX 0 /HPF (0-3)
[2024-10-21] MEDS ORDERED: ISOVUE-370 76% 100ML VIAL As Ordered ONE (13:15)
[2024-10-21 13:18] LABS: VANCOMYCIN RANDOM 3.3 UG/ML
[2024-10-21] MEDS ORDERED: ACET-897 PO (13:30)
[2024-10-21] MEDS ORDERED: MM S100C PO (13:30)
[2024-10-21] MEDS ORDERED: DICY20TA20 PO (13:32)
[2024-10-21] MEDS ORDERED: BACTDSTA PO (13:32)
[2024-10-21] MEDS ORDERED: NOVOINJ3 SC (13:33)
[2024-10-21] MEDS ORDERED: HOME MED LIST COMPLETE! XX SCH (13:35)
[2024-10-21] MEDS: [UNRECOGNIZED DRUG - OTHER] XX SCH (13:43)
[2024-10-21] MEDS ORDERED: PIPERACILLIN/TAZOBACTAM SOD 4.5 GM in DEXTROSE 5% (D5W) ADV/MINI-BAG 50 ML IV SCH (14:00)
[2024-10-21] MEDS: VANCOMYCIN HCL 2,000 MG, VIAL MATE ADAPTER 1 EACH in NS 500 ML IV ONE (14:09)
[2024-10-21] MEDS ORDERED: ACETAMINOPHEN 500 MG TAB PO PRN (14:35)
[2024-10-21 14:55] LABS: HEMATOCRIT 34.7 % (42.0-52.0); HEMOGLOBIN 11.3 g/dl (13.5-17.5); MEAN CORPUSCULAR HEMOGLOBIN 26.5 pg (27.0-33.0); MEAN CORPUSCULAR HGB CONC 32.6 g/dl (32.0-36.5); MEAN CORPUSCULAR VOLUME 81.3 fl (80.0-96.0); PLATELET COUNT, AUTOMATED 485 10^3/uL (150-450); RED BLOOD COUNT 4.27 10^6/uL (4.30-6.10); WHITE BLOOD COUNT 8.3 10^3/uL (4.0-10.0)
[2024-10-21 14:59] LABS: ERYTHROCYTE SEDIMENTATION RATE 106 mm/hr (0-20)
[2024-10-21] MEDS: PIPERACILLIN/TAZOBACTAM SOD 4.5 GM in DEXTROSE 5% (D5W) ADV/MINI-BAG 50 ML IV SCH (16:59)
[2024-10-21] MEDS: MORPHINE 2 MG/ML 1ML VIAL IV PRN (17:04)
[2024-10-21] MEDS: PANTOPRAZOLE 40MG TAB (PROTONIX) PO SCH (17:38)
[2024-10-21] MEDS: LEVEMIR (INSULIN DETEMIR) 1 UNITS/0.01ML SC SCH (22:46)
[2024-10-21] MEDS: VANCOMYCIN HCL 1,000 MG, VIAL MATE ADAPTER 1 EACH in NS 250 ML IV SCH (22:46)
[2024-10-21] MEDS: GABAPENTIN 300 MG CAP PO SCH (22:47)
[2024-10-22] VITALS (17 sets, daily range): BP systolic 123–160; BP diastolic 70–92; TEMP 97.5–98.4; O2SAT 87–94
[2024-10-22 05:49] LABS: HEMATOCRIT 30.5 % (42.0-52.0); HEMOGLOBIN 10.1 g/dl (13.5-17.5); MEAN CORPUSCULAR HEMOGLOBIN 26.4 pg (27.0-33.0); MEAN CORPUSCULAR HGB CONC 33.1 g/dl (32.0-36.5); MEAN CORPUSCULAR VOLUME 79.6 fl (80.0-96.0); PLATELET COUNT, AUTOMATED 413 10^3/uL (150-450); RED BLOOD COUNT 3.83 10^6/uL (4.30-6.10); WHITE BLOOD COUNT 8.2 10^3/uL (4.0-10.0)
[2024-10-22 06:40] LABS: BLOOD UREA NITROGEN 7 MG/DL (9-23); CALCIUM LEVEL 8.6 MG/DL (8.5-10.1); CARBON DIOXIDE LEVEL 29 MMOL/L (20-31); CHLORIDE LEVEL 101 MMOL/L (98-107); CREATININE FOR GFR 0.91 MG/DL (0.70-1.30); GLOMERULAR FILTRATION RATE > 60.0 (>56); GLUCOSE, FASTING 153 MG/DL (60-100); POTASSIUM SERUM 4.2 MMOL/L (3.5-5.1); SODIUM LEVEL 137 MMOL/L (136-145)
[2024-10-22] MEDS: ATORVASTATIN 20 MG TAB PO SCH (08:26)
[2024-10-22] MEDS: amLODIPine 5 MG TAB PO SCH (08:32)
[2024-10-22] MEDS ORDERED: PROHANCE 279.3MG/ML 5ML VIAL As Ordered ONE (09:22)
[2024-10-22] MEDS ORDERED: PROHANCE 279.3MG/ML 15ML VIAL As Ordered ONE (09:22)
[2024-10-23 00:20] VITALS: BP 145/92; TEMP 97.7; O2SAT 91
[2024-10-23 04:59] VITALS: BP 156/86; TEMP 97.7; O2SAT 92
[2024-10-23 06:14] LABS: HEMATOCRIT 32.5 % (42.0-52.0); HEMOGLOBIN 10.8 g/dl (13.5-17.5); MEAN CORPUSCULAR HEMOGLOBIN 26.5 pg (27.0-33.0); MEAN CORPUSCULAR HGB CONC 33.2 g/dl (32.0-36.5); MEAN CORPUSCULAR VOLUME 79.9 fl (80.0-96.0); PLATELET COUNT, AUTOMATED 419 10^3/uL (150-450); RED BLOOD COUNT 4.07 10^6/uL (4.30-6.10); WHITE BLOOD COUNT 8.6 10^3/uL (4.0-10.0)
[2024-10-23 06:58] LABS: BLOOD UREA NITROGEN 9 MG/DL (9-23); CALCIUM LEVEL 8.9 MG/DL (8.5-10.1); CARBON DIOXIDE LEVEL 30 MMOL/L (20-31); CHLORIDE LEVEL 98 MMOL/L (98-107); CREATININE FOR GFR 0.83 MG/DL (0.70-1.30); GLOMERULAR FILTRATION RATE > 60.0 (>56); GLUCOSE, FASTING 191 MG/DL (60-100); POTASSIUM SERUM 4.3 MMOL/L (3.5-5.1); SODIUM LEVEL 136 MMOL/L (136-145)
[2024-10-23 08:00] VITALS: O2SAT 87; O2SAT 92
[2024-10-23 08:59] LABS: C REACTIVE PROTEIN QUANTITATIV 8.27 MG/DL (<1.0)
[2024-10-23 09:11] LABS: PROCALCITONIN 0.12 ng/ml
[2024-10-23 12:00] VITALS: BP 163/100; TEMP 97.9; O2SAT 93
[2024-10-23 16:00] VITALS: BP 149/79; TEMP 97.7; O2SAT 95
[2024-10-23 20:00] VITALS: BP 130/90; TEMP 97.7; O2SAT 96
[2024-10-24] VITALS (8 sets, daily range): BP systolic 123–154; BP diastolic 76–101; TEMP 97.9–98.4; O2SAT 94–96
[2024-10-24 05:51] LABS: HEMATOCRIT 32.8 % (42.0-52.0); HEMOGLOBIN 10.9 g/dl (13.5-17.5); MEAN CORPUSCULAR HEMOGLOBIN 26.4 pg (27.0-33.0); MEAN CORPUSCULAR HGB CONC 33.2 g/dl (32.0-36.5); MEAN CORPUSCULAR VOLUME 79.4 fl (80.0-96.0); PLATELET COUNT, AUTOMATED 398 10^3/uL (150-450); RED BLOOD COUNT 4.13 10^6/uL (4.30-6.10); WHITE BLOOD COUNT 7.8 10^3/uL (4.0-10.0)
[2024-10-24 06:25] LABS: BLOOD UREA NITROGEN 9 MG/DL (9-23); CALCIUM LEVEL 8.5 MG/DL (8.5-10.1); CARBON DIOXIDE LEVEL 27 MMOL/L (20-31); CHLORIDE LEVEL 103 MMOL/L (98-107); CREATININE FOR GFR 0.78 MG/DL (0.70-1.30); GLOMERULAR FILTRATION RATE > 60.0 (>56); GLUCOSE, FASTING 280 MG/DL (60-100); MAGNESIUM LEVEL 1.9 MG/DL (1.8-2.4); POTASSIUM SERUM 4.4 MMOL/L (3.5-5.1); SODIUM LEVEL 138 MMOL/L (136-145)
[2024-10-24] MEDS: ENOXAPARIN 40MG/0.4ML SYRINGE (J1650 PER 10MG) SC SCH (08:27)
[2024-10-24] MEDS: DOCUSATE SODIUM 100MG CAPSULE PO SCH (21:12)
[2024-10-25] VITALS: BP 143/88; TEMP 98.2; O2SAT 94
[2024-10-25 04:00] VITALS: BP 149/92; TEMP 98.1; O2SAT 90
[2024-10-25 06:00] LABS: HEMATOCRIT 32.6 % (42.0-52.0); HEMOGLOBIN 10.9 g/dl (13.5-17.5); MEAN CORPUSCULAR HEMOGLOBIN 26.4 pg (27.0-33.0); MEAN CORPUSCULAR HGB CONC 33.4 g/dl (32.0-36.5); MEAN CORPUSCULAR VOLUME 78.9 fl (80.0-96.0); PLATELET COUNT, AUTOMATED 381 10^3/uL (150-450); RED BLOOD COUNT 4.13 10^6/uL (4.30-6.10); WHITE BLOOD COUNT 7.9 10^3/uL (4.0-10.0)
[2024-10-25 06:46] LABS: BLOOD UREA NITROGEN 10 MG/DL (9-23); CALCIUM LEVEL 8.5 MG/DL (8.5-10.1); CARBON DIOXIDE LEVEL 27 MMOL/L (20-31); CHLORIDE LEVEL 98 MMOL/L (98-107); CREATININE FOR GFR 0.68 MG/DL (0.70-1.30); GLOMERULAR FILTRATION RATE > 60.0 (>56); GLUCOSE, FASTING 259 MG/DL (60-100); MAGNESIUM LEVEL 1.9 MG/DL (1.8-2.4); POTASSIUM SERUM 4.3 MMOL/L (3.5-5.1); SODIUM LEVEL 137 MMOL/L (136-145)
[2024-10-25 08:00] VITALS: BP 132/98; TEMP 97.9; O2SAT 93
[2024-10-25 08:22] VITALS: BP 132/98
[2024-10-25] MEDS: MIRALAX *UNIT DOSE* 17GM PACKET PO SCH (08:24)
[2024-10-25] MEDS ORDERED: AMLO1TAB24 PO (11:03)
[2024-10-25] MEDS ORDERED: OXYC-517 PO (11:03)
[2024-10-25] MEDS ORDERED: GABA-1172 PO (11:03)
[2024-10-25] MEDS ORDERED: ATOR40TA75 PO (11:03)
[2024-10-25] MEDS ORDERED: CYCL-707 PO (11:03)
[2024-10-25 12:00] VITALS: BP 136/78; TEMP 98.2; O2SAT 94
== END 2024-10-25 12:40 | disposition home health service (06) | DRG 720 ==
LOC: M MSPAV 09:30
PROVIDERS: ADMIT Student in an Organized Health Care Education/Training Program; ATTEND Internal Medicine
PROC: B246ZZZ Ultrasonography of Right and Left Heart (ICD-10-PCS; principal; 2024-10-22)
DX: A41.02 Sepsis due to Methicillin resistant Staphylococcus aureus (principal); M86.171 Other acute osteomyelitis, right ankle and foot; E11.40 Type 2 diabetes mellitus with diabetic neuropathy, unspecified; E11.69 Type 2 diabetes mellitus with other specified complication; E11.65 Type 2 diabetes mellitus with hyperglycemia; I10 Essential (primary) hypertension; E78.5 Hyperlipidemia, unspecified; K21.9 Gastro-esophageal reflux disease without esophagitis; F17.220 Nicotine dependence, chewing tobacco, uncomplicated; K02.9 Dental caries, unspecified; M51.26 Other intervertebral disc displacement, lumbar region; J44.9 Chronic obstructive pulmonary disease, unspecified; G89.29 Other chronic pain; Z66 Do not resuscitate; Z90.49 Acquired absence of other specified parts of digestive tract; Z79.4 Long term (current) use of insulin; Z79.899 Other long term (current) drug therapy; Z88.0 Allergy status to penicillin; Z88.6 Allergy status to analgesic agent; Z88.8 Allergy status to other drugs, medicaments and biological substances; Z91.012 Allergy to eggs; Z91.018 Allergy to other foods; Z86.73 Personal history of transient ischemic attack (TIA), and cerebral infarction without residual deficits

== ENCOUNTER 2024-10-25 12:49 | Outpatient (CLI) | payer MEDICAID ==
[~2024-10-25 12:49] MED LIST changes: +ACET-897 PO; +BACTDSTA PO; +DICY20TA20 PO; +MM S100C PO; +NOVOINJ3 SC
[2024-10-25] MEDS: DALBAVANCIN 1,500 MG in D5W 250 ML IV ONE (13:37)
== END 2024-10-25 15:15 | disposition home or self-care (01) ==
LOC: M OPCLI4PV 12:49 → M MSPAV 12:52 → M OPCLI4PV 15:15
PROVIDERS: ATTEND Internal Medicine
DX: A41.02 Sepsis due to Methicillin resistant Staphylococcus aureus (principal); M86.171 Other acute osteomyelitis, right ankle and foot; Z88.7 Allergy status to serum and vaccine; Z88.0 Allergy status to penicillin; Z88.8 Allergy status to other drugs, medicaments and biological substances; Z91.89 Other specified personal risk factors, not elsewhere classified
CPT/HCPCS: 96365; 96366; J0875

== ENCOUNTER 2024-11-02 06:13 | Outpatient (CLI) | payer MEDICAID ==
[~2024-11-02] VITALS: Ht 175.3 cm; Wt 110.0 kg
[2024-11-02 06:46] LABS: HEMOGLOBIN 10.9 g/dl (13.5-17.5); MEAN CORPUSCULAR HEMOGLOBIN 26.4 pg (27.0-33.0); MEAN CORPUSCULAR VOLUME 79.9 fl (80.0-96.0); PLATELET COUNT, AUTOMATED 289 10^3/uL (150-450); RED BLOOD COUNT 4.13 10^6/uL (4.30-6.10)
[2024-11-02 07:05] LABS: ERYTHROCYTE SEDIMENTATION RATE 95 mm/hr (0-20)
[2024-11-02 07:13] LABS: ALBUMIN 3.1 G/DL (3.2-5.2); ALKALINE PHOSPHATASE 105 U/L (40-129); ALT/SGPT 10 U/L (7.0-40); AST/SGOT < 8 U/L (<34); BILIRUBIN,TOTAL 0.4 MG/DL (0.3-1.2); BLOOD UREA NITROGEN 13 MG/DL (9-23); C REACTIVE PROTEIN QUANTITATIV 3.14 MG/DL (<1.0); CALCIUM LEVEL 8.6 MG/DL (8.5-10.1); CARBON DIOXIDE LEVEL 28 MMOL/L (20-31); CHLORIDE LEVEL 102 MMOL/L (98-107); CREATININE FOR GFR 0.78 MG/DL (0.70-1.30); GLOMERULAR FILTRATION RATE > 60.0 (>56); GLUCOSE, FASTING 207 MG/DL (60-100); POTASSIUM SERUM 4.4 MMOL/L (3.5-5.1); SODIUM LEVEL 138 MMOL/L (136-145); TOTAL PROTEIN 7.5 G/DL (5.7-8.2)
[2024-11-02 07:20] VITALS: BP 134/75; O2SAT 97
[2024-11-02] MEDS: DALBAVANCIN 1,500 MG in D5W 250 ML IV ONE (09:04)
[2024-11-02 09:40] VITALS: BP 153/87; O2SAT 96
== END 2024-11-02 09:40 | disposition home or self-care (01) ==
LOC: M INFU 06:13
PROVIDERS: ATTEND Internal Medicine Infectious Disease
DX: A41.02 Sepsis due to Methicillin resistant Staphylococcus aureus (principal); M86.171 Other acute osteomyelitis, right ankle and foot; Z88.0 Allergy status to penicillin; Z88.7 Allergy status to serum and vaccine; Z88.8 Allergy status to other drugs, medicaments and biological substances; Z88.6 Allergy status to analgesic agent; Z91.012 Allergy to eggs; Z91.011 Allergy to milk products
CPT/HCPCS: 36415; 80053; 85027; 85652; 86140; 96365; J0875

== ENCOUNTER 2024-12-27 03:46 | Emergency (ER) | payer MEDICAID ==
[~2024-12-27] VITALS: Ht 167.6 cm; Wt 108.6 kg
[2024-12-27 05:19] LABS: BASO # 0.1 10^3/uL (0.0-0.2); BASO % 0.8 % (0.0-1.0); EOS # 0.4 10^3/uL (0.0-0.5); EOS % 5.3 % (0.0-3.0); HEMOGLOBIN 10.9 g/dl (13.5-17.5); LYMPH # 1.6 10^3/uL (1.5-5.0); LYMPH % 21.9 % (24.0-44.0); MEAN CORPUSCULAR HEMOGLOBIN 26.8 pg (27.0-33.0); MEAN CORPUSCULAR VOLUME 81.1 fl (80.0-96.0); MONO # 0.6 10^3/uL (0.0-0.8); MONO % 8.4 % (2.0-8.0); NEUTROPHILS # 4.7 10^3/uL (1.5-8.5); NEUTROPHILS % 63.1 % (36.0-66.0); PLATELET COUNT, AUTOMATED 284 10^3/uL (150-450); RED BLOOD COUNT 4.07 10^6/uL (4.30-6.10); WHITE BLOOD COUNT 7.5 10^3/uL (4.0-10.0)
[2024-12-27 05:29] LABS: LIPASE 20 U/L (12-53)
[2024-12-27 05:32] LABS: ALKALINE PHOSPHATASE 113 U/L (40-129); ALT/SGPT 9 U/L (7.0-40); AST/SGOT 9 U/L (<34); BILIRUBIN,DIRECT < 0.1 MG/DL (<0.4); BILIRUBIN,TOTAL 0.2 MG/DL (0.3-1.2); BLOOD UREA NITROGEN 14 MG/DL (9-23); CALCIUM LEVEL 8.6 MG/DL (8.5-10.1); CARBON DIOXIDE LEVEL 24 MMOL/L (20-31); CHLORIDE LEVEL 110 MMOL/L (98-107); GLOMERULAR FILTRATION RATE > 90.0 (>56); GLUCOSE, FASTING 132 MG/DL (60-100); INR 0.97; PARTIAL THROMBOPLASTIN TIME 23.9 SECONDS (24.8-34.2); POTASSIUM SERUM 4.2 MMOL/L (3.5-5.1); PROTHROMBIN TIME 13.2 SECONDS (12.5-14.5); SODIUM LEVEL 145 MMOL/L (136-145); TOTAL PROTEIN 6.4 G/DL (5.7-8.2)
[2024-12-27 06:03] LABS: KETONE, URINE AUTO RFX NEGATIVE (NEGATIVE); LEUKOCYTE ESTERASE UR AUTO RFX NEGATIVE (NEGATIVE); MUCUS, URINE RFX SMALL (NEGATIVE); NITRITE, URINE AUTO RFX NEGATIVE (NEGATIVE); RBC, URINE AUTO RFX 0 /HPF (0-3); SQUAM EPITHELIAL CELL UR AURFX 0 /HPF (0-6); WBC, URINE AUTO RFX 0 /HPF (0-3)
[2024-12-27] MEDS: NS (Normal Saline) 0.9% 1,000 ML IV ONE (06:42)
[2024-12-27] MEDS: PANTOPRAZOLE 40MG VIAL IV ONE (06:44)
[2024-12-27] MEDS: ACETAMINOPHEN *IV* 1,000 MG in IV 1 EA IV ONE (06:46)
[2024-12-27] MEDS ORDERED: ISOVUE-370 76% 100ML VIAL As Ordered ONE (06:56)
[2024-12-27] MEDS: MORPHINE 4 MG/ML 1ML VIAL IV ONE (07:55)
[2024-12-27] MEDS ORDERED: OXYC1TAB23 PO (08:39)
[2024-12-27] MEDS ORDERED: MIRA3350 PO (08:39)
[2024-12-27 09:03] VITALS: TEMP 97.8; O2SAT 100
[2024-12-27 09:09] VITALS: BP 168/102
== END 2024-12-27 09:09 | disposition home or self-care (01) ==
LOC: M ED 03:46
DX: R59.0 Localized enlarged lymph nodes (principal); D64.9 Anemia, unspecified; R10.9 Unspecified abdominal pain; E11.9 Type 2 diabetes mellitus without complications; I10 Essential (primary) hypertension; I25.2 Old myocardial infarction; Z86.73 Personal history of transient ischemic attack (TIA), and cerebral infarction without residual deficits; Z88.0 Allergy status to penicillin; Z88.5 Allergy status to narcotic agent; Z88.6 Allergy status to analgesic agent; Z88.7 Allergy status to serum and vaccine; Z88.8 Allergy status to other drugs, medicaments and biological substances; Z91.012 Allergy to eggs; Z79.1 Long term (current) use of non-steroidal anti-inflammatories (NSAID); Z79.4 Long term (current) use of insulin; Z79.899 Other long term (current) drug therapy
CPT/HCPCS: 74177; 80048; 80076; 81001; 83605; 83690; 85025; 85610; 85730; 96374; 96375; 99285; J0131; J2470; Q9967

== ENCOUNTER 2025-01-15 20:52 | Emergency (ER) | payer MEDICAID ==
[~2025-01-15] VITALS: Ht 175.3 cm; Wt 102.0 kg
[~2025-01-15 20:52] MED LIST changes: +MIRA3350 PO; +OXYC1TAB23 PO
[2025-01-15 21:32] LABS: BASO # 0.1 10^3/uL (0.0-0.2); BASO % 1.1 % (0.0-1.0); EOS # 0.6 10^3/uL (0.0-0.5); EOS % 6.7 % (0.0-3.0); HEMATOCRIT 33.5 % (42.0-52.0); HEMOGLOBIN 11.1 g/dl (13.5-17.5); LYMPH % 22.5 % (24.0-44.0); MEAN CORPUSCULAR HEMOGLOBIN 26.4 pg (27.0-33.0); MEAN CORPUSCULAR HGB CONC 33.1 g/dl (32.0-36.5); MEAN CORPUSCULAR VOLUME 79.6 fl (80.0-96.0); MONO # 0.7 10^3/uL (0.0-0.8); MONO % 7.8 % (2.0-8.0); NEUTROPHILS # 5.4 10^3/uL (1.5-8.5); NEUTROPHILS % 60.9 % (36.0-66.0); PLATELET COUNT, AUTOMATED 350 10^3/uL (150-450); RED BLOOD COUNT 4.21 10^6/uL (4.30-6.10); WHITE BLOOD COUNT 8.9 10^3/uL (4.0-10.0)
[2025-01-15 21:49] LABS: CK-MB VALUE MASS < 1.0 NG/ML (<3.6)
[2025-01-15 21:50] LABS: BLOOD UREA NITROGEN 22 MG/DL (9-23); CALCIUM LEVEL 8.2 MG/DL (8.5-10.1); CARBON DIOXIDE LEVEL 22 MMOL/L (20-31); CHLORIDE LEVEL 109 MMOL/L (98-107); CREATININE FOR GFR 0.94 MG/DL (0.70-1.30); GLOMERULAR FILTRATION RATE > 90.0 (>56); GLUCOSE, FASTING 190 MG/DL (60-100); POTASSIUM SERUM 4.8 MMOL/L (3.5-5.1); SODIUM LEVEL 142 MMOL/L (136-145)
[2025-01-15 21:51] LABS: CPK CREATINE PHOSPHOKINASE 25 U/L (46-171)
[2025-01-15 22:58] LABS: CK-MB VALUE MASS < 1.0 NG/ML (<3.6)
[2025-01-15 22:59] LABS: CPK CREATINE PHOSPHOKINASE 25 U/L (46-171)
[2025-01-16 00:02] VITALS: BP 164/78; TEMP 97.6; O2SAT 96
[2025-01-16] MEDS: PERCOCET 5MG/325MG TAB PO ONE (00:02)
[2025-01-16] MEDS: OXYCODONE/APAP 5MG/325MG(HOME DOSE PACK) PO ONE (00:04)
[2025-01-16] MEDS ORDERED: PERCOCET PO (00:15)
[2025-01-16] MEDS ORDERED: ELIQ5TAB PO (17:34)
== END 2025-01-16 00:24 | disposition home or self-care (01) ==
LOC: M ED 20:52 → EDBD 20:52 → M ED 01-16 00:24
DX: R07.89 Other chest pain (principal); E11.9 Type 2 diabetes mellitus without complications; I10 Essential (primary) hypertension; E78.5 Hyperlipidemia, unspecified; F17.210 Nicotine dependence, cigarettes, uncomplicated; Z88.0 Allergy status to penicillin; Z88.6 Allergy status to analgesic agent; Z88.7 Allergy status to serum and vaccine; Z88.8 Allergy status to other drugs, medicaments and biological substances; Z91.011 Allergy to milk products; Z91.012 Allergy to eggs; Z79.1 Long term (current) use of non-steroidal anti-inflammatories (NSAID); Z79.4 Long term (current) use of insulin; Z79.899 Other long term (current) drug therapy

== ENCOUNTER 2025-01-16 16:33 | Emergency (ER) | payer MEDICAID ==
[~2025-01-16] VITALS: Ht 175.3 cm; Wt 106.0 kg
[~2025-01-16 16:33] MED LIST changes: +PERCOCET PO
[2025-01-16] MEDS: ACETAMINOPHEN 500 MG TAB PO ONE (16:50)
[2025-01-16 17:20] LABS: BASO # 0.1 10^3/uL (0.0-0.2); BASO % 0.9 % (0.0-1.0); EOS # 0.6 10^3/uL (0.0-0.5); EOS % 6.2 % (0.0-3.0); HEMATOCRIT 35.9 % (42.0-52.0); HEMOGLOBIN 11.8 g/dl (13.5-17.5); LYMPH % 20.9 % (24.0-44.0); MEAN CORPUSCULAR HEMOGLOBIN 26.3 pg (27.0-33.0); MEAN CORPUSCULAR HGB CONC 32.9 g/dl (32.0-36.5); MONO # 0.7 10^3/uL (0.0-0.8); MONO % 7.6 % (2.0-8.0); NEUTROPHILS % 63.4 % (36.0-66.0); PLATELET COUNT, AUTOMATED 335 10^3/uL (150-450); RED BLOOD COUNT 4.49 10^6/uL (4.30-6.10); WHITE BLOOD COUNT 9.4 10^3/uL (4.0-10.0)
[2025-01-16] MEDS ORDERED: ELIQ5TAB PO (17:34)
[2025-01-16 17:46] LABS: LIPASE 78 U/L (12-53)
[2025-01-16 17:48] LABS: ALBUMIN 3.5 G/DL (3.2-5.2); ALKALINE PHOSPHATASE 118 U/L (40-129); ALT/SGPT 14 U/L (7.0-40); AST/SGOT 10 U/L (<34); BILIRUBIN,DIRECT < 0.1 MG/DL (<0.4); BILIRUBIN,TOTAL 0.3 MG/DL (0.3-1.2); BLOOD UREA NITROGEN 17 MG/DL (9-23); CALCIUM LEVEL 9.1 MG/DL (8.5-10.1); CARBON DIOXIDE LEVEL 27 MMOL/L (20-31); CHLORIDE LEVEL 105 MMOL/L (98-107); CREATININE FOR GFR 0.85 MG/DL (0.70-1.30); GLOMERULAR FILTRATION RATE > 90.0 (>56); GLUCOSE, FASTING 146 MG/DL (60-100); POTASSIUM SERUM 5.1 MMOL/L (3.5-5.1); SODIUM LEVEL 141 MMOL/L (136-145)
[2025-01-16] MEDS ORDERED: ISOVUE-370 76% 100ML VIAL As Ordered ONE (17:59)
[2025-01-16] MEDS: FAMOTIDINE 20MG/2ML VIAL IVP ONE (22:30)
[2025-01-16] MEDS: LIDOCAINE VISCOUS 2% SOLN 15ML UDC PO ONE (22:30)
[2025-01-16] MEDS: MAALOX 30 ML SUSP *UDC PO ONE (22:30)
[2025-01-17] MEDS: SUCRALFATE 1 GM TAB PO ONE (00:33)
[2025-01-17] MEDS: PANTOPRAZOLE 40MG VIAL IV ONE (00:35)
[2025-01-17] MEDS: NS (Normal Saline) 0.9% 1,000 ML IV ONE (00:35)
[2025-01-17] MEDS: MORPHINE 2 MG/ML 1ML VIAL IV ONE (00:36)
[2025-01-17 02:00] VITALS: TEMP 98.5
[2025-01-17 02:15] VITALS: BP 146/88; O2SAT 97
== END 2025-01-17 02:20 | disposition home or self-care (01) ==
LOC: M ED 16:33 → EDBD 16:33 → M ED 01-17 02:20
DX: K29.70 Gastritis, unspecified, without bleeding (principal); R10.9 Unspecified abdominal pain; E11.9 Type 2 diabetes mellitus without complications; I10 Essential (primary) hypertension; E78.5 Hyperlipidemia, unspecified; Z86.73 Personal history of transient ischemic attack (TIA), and cerebral infarction without residual deficits; Z86.718 Personal history of other venous thrombosis and embolism; F17.210 Nicotine dependence, cigarettes, uncomplicated; Z88.0 Allergy status to penicillin; Z88.7 Allergy status to serum and vaccine; Z91.012 Allergy to eggs; Z91.011 Allergy to milk products; Z79.1 Long term (current) use of non-steroidal anti-inflammatories (NSAID); Z79.4 Long term (current) use of insulin; Z79.899 Other long term (current) drug therapy
CPT/HCPCS: 36415; 72146; 74177; 80048; 80076; 83690; 85025; 93005; 96374; 96375; 99285; J1308; J2470; Q9967

== ENCOUNTER 2025-01-18 23:47 | Emergency (ER) | payer MEDICAID ==
[~2025-01-18] VITALS: Ht 175.3 cm; Wt 102.3 kg
[~2025-01-18 23:47] MED LIST changes: +ELIQ5TAB PO
[2025-01-19] MEDS: FAMOTIDINE 20 MG TAB PO ONE (05:16)
[2025-01-19 05:45] LABS: BASO # 0.1 10^3/uL (0.0-0.2); BASO % 0.7 % (0.0-1.0); EOS # 0.5 10^3/uL (0.0-0.5); EOS % 5.5 % (0.0-3.0); HEMATOCRIT 31.6 % (42.0-52.0); HEMOGLOBIN 10.5 g/dl (13.5-17.5); LYMPH # 1.9 10^3/uL (1.5-5.0); LYMPH % 21.3 % (24.0-44.0); MEAN CORPUSCULAR HGB CONC 33.2 g/dl (32.0-36.5); MEAN CORPUSCULAR VOLUME 78.2 fl (80.0-96.0); MONO # 0.8 10^3/uL (0.0-0.8); MONO % 9.1 % (2.0-8.0); NEUTROPHILS # 5.6 10^3/uL (1.5-8.5); NEUTROPHILS % 62.9 % (36.0-66.0); PLATELET COUNT, AUTOMATED 315 10^3/uL (150-450); RED BLOOD COUNT 4.04 10^6/uL (4.30-6.10); WHITE BLOOD COUNT 8.9 10^3/uL (4.0-10.0)
[2025-01-19 06:09] LABS: LIPASE 117 U/L (12-53)
[2025-01-19 06:13] LABS: ALBUMIN 3.1 G/DL (3.2-5.2); ALKALINE PHOSPHATASE 113 U/L (40-129); ALT/SGPT < 9 U/L (7.0-40); AST/SGOT < 8 U/L (<34); BILIRUBIN,TOTAL 0.3 MG/DL (0.3-1.2); BLOOD UREA NITROGEN 15 MG/DL (9-23); CALCIUM LEVEL 8.6 MG/DL (8.5-10.1); CARBON DIOXIDE LEVEL 29 MMOL/L (20-31); CHLORIDE LEVEL 103 MMOL/L (98-107); GLOMERULAR FILTRATION RATE > 90.0 (>56); GLUCOSE, FASTING 209 MG/DL (60-100); POTASSIUM SERUM 4.3 MMOL/L (3.5-5.1); SODIUM LEVEL 139 MMOL/L (136-145); TOTAL PROTEIN 7.1 G/DL (5.7-8.2)
[2025-01-19 07:14] LABS: KETONE, URINE AUTO RFX NEGATIVE (NEGATIVE); LEUKOCYTE ESTERASE UR AUTO RFX NEGATIVE (NEGATIVE); NITRITE, URINE AUTO RFX NEGATIVE (NEGATIVE); RBC, URINE AUTO RFX 0 /HPF (0-3); SQUAM EPITHELIAL CELL UR AURFX 0 /HPF (0-6); WBC, URINE AUTO RFX 0 /HPF (0-3)
[2025-01-19] MEDS ORDERED: ACETAMINOPHEN 500 MG TAB PO ONE (08:50)
[2025-01-19] MEDS ORDERED: CHOLCAP PO (08:53)
[2025-01-19] MEDS ORDERED: MIRA3350 PO (08:53)
[2025-01-19] MEDS ORDERED: MM S100C PO (08:53)
[2025-01-19 09:00] VITALS: BP 184/91; TEMP 97.5; O2SAT 97
== END 2025-01-19 09:13 | disposition home or self-care (01) ==
LOC: M ED 23:47 → EDBD 23:47 → M ED 01-19 09:13
DX: K59.00 Constipation, unspecified (principal); R10.84 Generalized abdominal pain; E11.9 Type 2 diabetes mellitus without complications; I25.119 Atherosclerotic heart disease of native coronary artery with unspecified angina pectoris; K21.9 Gastro-esophageal reflux disease without esophagitis; E78.5 Hyperlipidemia, unspecified; J45.909 Unspecified asthma, uncomplicated; F17.290 Nicotine dependence, other tobacco product, uncomplicated; Z86.711 Personal history of pulmonary embolism; Z86.73 Personal history of transient ischemic attack (TIA), and cerebral infarction without residual deficits; Z88.0 Allergy status to penicillin; Z88.6 Allergy status to analgesic agent; Z88.7 Allergy status to serum and vaccine; Z91.011 Allergy to milk products; Z91.012 Allergy to eggs; Z79.1 Long term (current) use of non-steroidal anti-inflammatories (NSAID); Z79.899 Other long term (current) drug therapy; Z79.4 Long term (current) use of insulin

== ENCOUNTER 2025-01-22 17:54 | Emergency (ER) | payer MEDICAID ==
[~2025-01-22] VITALS: Ht 175.3 cm; Wt 100.4 kg
[~2025-01-22 17:54] MED LIST changes: +CHOLCAP PO; +LIDO1ADH93 TD; -LIDO5DIS41 TD
[2025-01-22] MEDS ORDERED: ELIQ5TAB (18:13)
[2025-01-22 19:00] LABS: BASO # 0.1 10^3/uL (0.0-0.2); BASO % 0.5 % (0.0-1.0); EOS # 0.3 10^3/uL (0.0-0.5); EOS % 3.1 % (0.0-3.0); HEMATOCRIT 32.3 % (42.0-52.0); LYMPH # 0.9 10^3/uL (1.5-5.0); LYMPH % 8.6 % (24.0-44.0); MEAN CORPUSCULAR HEMOGLOBIN 26.3 pg (27.0-33.0); MEAN CORPUSCULAR HGB CONC 34.1 g/dl (32.0-36.5); MEAN CORPUSCULAR VOLUME 77.3 fl (80.0-96.0); MONO # 0.9 10^3/uL (0.0-0.8); MONO % 8.6 % (2.0-8.0); NEUTROPHILS # 8.1 10^3/uL (1.5-8.5); NEUTROPHILS % 78.5 % (36.0-66.0); PLATELET COUNT, AUTOMATED 298 10^3/uL (150-450); RED BLOOD COUNT 4.18 10^6/uL (4.30-6.10); WHITE BLOOD COUNT 10.3 10^3/uL (4.0-10.0)
[2025-01-22 19:22] LABS: CK-MB VALUE MASS < 1.0 NG/ML (<3.6)
[2025-01-22 19:24] LABS: ALBUMIN 3.2 G/DL (3.2-5.2); ALKALINE PHOSPHATASE 99 U/L (40-129); ALT/SGPT 10 U/L (7.0-40); AST/SGOT < 8 U/L (<34); BILIRUBIN,DIRECT 0.1 MG/DL (<0.4); BILIRUBIN,TOTAL 0.4 MG/DL (0.3-1.2); BLOOD UREA NITROGEN 21 MG/DL (9-23); CALCIUM LEVEL 8.9 MG/DL (8.5-10.1); CARBON DIOXIDE LEVEL 25 MMOL/L (20-31); CHLORIDE LEVEL 101 MMOL/L (98-107); CPK CREATINE PHOSPHOKINASE 35 U/L (46-171); CREATININE FOR GFR 0.93 MG/DL (0.70-1.30); GLOMERULAR FILTRATION RATE > 90.0 (>56); GLUCOSE, FASTING 247 MG/DL (60-100); MAGNESIUM LEVEL 1.9 MG/DL (1.8-2.4); MB/CK RELATIVE INDEX 2.85 (< OR =4); POTASSIUM SERUM 4.4 MMOL/L (3.5-5.1); SODIUM LEVEL 136 MMOL/L (136-145); TOTAL PROTEIN 7.5 G/DL (5.7-8.2)
[2025-01-22] MEDS: diazePAM 5MG TABLET PO ONE (21:20)
[2025-01-22] MEDS: KETOROLAC 30 MG/ML 1ML VIAL IM ONE (21:30)
[2025-01-22 21:31] VITALS: BP 153/93; TEMP 98.2; O2SAT 99
[2025-01-22 21:55] LABS: C REACTIVE PROTEIN QUANTITATIV 12.33 MG/DL (<1.0)
[2025-01-22] MEDS ORDERED: PERCOCET PO (22:24)
== END 2025-01-22 22:38 | disposition home or self-care (01) ==
LOC: EDBD 17:54 → M ED 17:54 → EDSEX 17:54 → M ED 22:38
DX: M46.26 Osteomyelitis of vertebra, lumbar region (principal); I44.7 Left bundle-branch block, unspecified; E11.9 Type 2 diabetes mellitus without complications; I10 Essential (primary) hypertension; K21.9 Gastro-esophageal reflux disease without esophagitis; J45.909 Unspecified asthma, uncomplicated; Z88.0 Allergy status to penicillin; Z88.7 Allergy status to serum and vaccine; Z88.8 Allergy status to other drugs, medicaments and biological substances; Z91.012 Allergy to eggs; Z91.018 Allergy to other foods; Z79.1 Long term (current) use of non-steroidal anti-inflammatories (NSAID); Z79.01 Long term (current) use of anticoagulants; Z79.4 Long term (current) use of insulin; Z79.899 Other long term (current) drug therapy
CPT/HCPCS: 80048; 80076; 82550; 82553; 83735; 84484; 85025; 86140; 93005; 96372; 99284; J1885

== ENCOUNTER 2025-05-18 17:19 | Emergency (ER) | payer MEDICAID ==
[~2025-05-18] VITALS: Ht 175.3 cm; Wt 94.5 kg
[~2025-05-18 17:19] MED LIST changes: +ELIQ5TAB
[2025-05-18] MEDS: ONDANSETRON 4MG 2ML VIAL IV ONE (18:42)
[2025-05-18] MEDS: NS 500 ML IV ONE (18:43)
[2025-05-18] MEDS: MORPHINE 4 MG/ML 1 ML VIAL IV ONE (18:43)
[2025-05-18 18:44] LABS: BASO # 0.1 10^3/uL (0.0-0.2); BASO % 0.5 % (0.0-1.0); EOS # 0.3 10^3/uL (0.0-0.5); EOS % 3.3 % (0.0-3.0); LYMPH # 1.5 10^3/uL (1.5-5.0); LYMPH % 16.6 % (24.0-44.0); MONO # 0.8 10^3/uL (0.0-0.8); MONO % 8.2 % (2.0-8.0); NEUTROPHILS # 6.6 10^3/uL (1.5-8.5); NEUTROPHILS % 71.0 % (36.0-66.0); PLATELET COUNT, AUTOMATED 308 10^3/uL (150-450)
[2025-05-18 18:52] LABS: ERYTHROCYTE SEDIMENTATION RATE 76 mm/hr (0-20)
[2025-05-18 19:15] LABS: C REACTIVE PROTEIN QUANTITATIV 2.17 MG/DL (<1.0); CALCIUM LEVEL 9.5 MG/DL (8.5-10.1); CARBON DIOXIDE LEVEL 26 MMOL/L (20-31); CHLORIDE LEVEL 106 MMOL/L (98-107); CREATININE FOR GFR 0.89 MG/DL (0.70-1.30); GLOMERULAR FILTRATION RATE > 90.0 (>56); POTASSIUM SERUM 3.7 MMOL/L (3.5-5.1); SODIUM LEVEL 144 MMOL/L (136-145)
[2025-05-18] MEDS ORDERED: ISOVUE-370 76% 100 ML VIAL As Ordered ONE (19:29)
[2025-05-18] MEDS: PERCOCET 5MG/325MG TAB PO ONE (20:53)
[2025-05-18] MEDS ORDERED: PERC5TAB12 PO (20:57)
[2025-05-18 21:00] VITALS: BP 159/100; TEMP 97.3; O2SAT 98
== END 2025-05-18 21:15 | disposition home or self-care (01) ==
LOC: EDBD 17:19 → M ED 17:19
DX: M54.50 Low back pain, unspecified (principal); M85.88 Other specified disorders of bone density and structure, other site; I10 Essential (primary) hypertension; E78.5 Hyperlipidemia, unspecified; Z88.0 Allergy status to penicillin; Z88.7 Allergy status to serum and vaccine; Z88.6 Allergy status to analgesic agent; Z91.012 Allergy to eggs; Z91.011 Allergy to milk products; Z79.1 Long term (current) use of non-steroidal anti-inflammatories (NSAID); Z79.01 Long term (current) use of anticoagulants; Z79.4 Long term (current) use of insulin; Z79.899 Other long term (current) drug therapy
CPT/HCPCS: 74177; 80048; 85025; 85652; 86140; 87040; 96374; 96375; 99284; J2405; Q9967

== ENCOUNTER 2025-05-26 06:50 | Emergency (ER) | payer MEDICAID ==
[~2025-05-26] VITALS: Ht 175.3 cm; Wt 91.3 kg
[2025-05-26] MEDS ORDERED: REGL5TAB2 PO (07:37)
[2025-05-26 07:50] VITALS: BP 155/97; TEMP 96.8; O2SAT 98
== END 2025-05-26 08:11 | disposition home or self-care (01) ==
LOC: M ED 06:50
DX: E11.43 Type 2 diabetes mellitus with diabetic autonomic (poly)neuropathy (principal); G89.29 Other chronic pain; I10 Essential (primary) hypertension; E78.5 Hyperlipidemia, unspecified; J45.909 Unspecified asthma, uncomplicated; F10.10 Alcohol abuse, uncomplicated; Z86.73 Personal history of transient ischemic attack (TIA), and cerebral infarction without residual deficits; Z88.0 Allergy status to penicillin; Z88.6 Allergy status to analgesic agent; Z88.7 Allergy status to serum and vaccine; Z88.8 Allergy status to other drugs, medicaments and biological substances; Z91.012 Allergy to eggs; Z79.1 Long term (current) use of non-steroidal anti-inflammatories (NSAID); Z79.01 Long term (current) use of anticoagulants; Z79.4 Long term (current) use of insulin; Z79.899 Other long term (current) drug therapy

== ENCOUNTER 2025-05-29 15:59 | Inpatient (IN) | payer MEDICAID ==
[~2025-05-29] VITALS: Ht 175.3 cm; Wt 91.4 kg
[~2025-05-29 15:59] MED LIST changes: +REGL5TAB2 PO
[2025-05-29] MEDS: LIDOCAINE 2% 5 ML JELLY UROJET TOP ONE (17:10)
[2025-05-29] MEDS: PERCOCET 5MG/325MG TAB PO ONE (17:55)
[2025-05-29 18:02] LABS: KETONE, URINE AUTO RFX NEGATIVE (NEGATIVE); MUCUS, URINE RFX SMALL (NEGATIVE); NITRITE, URINE AUTO RFX NEGATIVE (NEGATIVE); RBC, URINE AUTO RFX 66 /HPF (0-3); SQUAM EPITHELIAL CELL UR AURFX 0 /HPF (0-6)
[2025-05-29 18:03] LABS: LEUKOCYTE ESTERASE UR AUTO RFX 3+ (NEGATIVE); WBC, URINE AUTO RFX 117 /HPF (0-3)
[2025-05-29] MEDS: METOPROLOL SUCC. 25 MG *XL* TAB PO ONE (18:09)
[2025-05-29] MEDS: cefTRIAXone SOD 1 GM in DEXTROSE 5% (D5W) ADV/MINI-BAG 50 ML IV ONE ×2 (18:15→21:00)
[2025-05-29 18:19] LABS: ALT/SGPT < 9 U/L (7.0-40); AST/SGOT 20 U/L (<34); CALCIUM LEVEL 9.7 MG/DL (8.5-10.1); CARBON DIOXIDE LEVEL 25 MMOL/L (20-31); CHLORIDE LEVEL 103 MMOL/L (98-107); CREATININE FOR GFR 0.76 MG/DL (0.70-1.30); GLOMERULAR FILTRATION RATE > 90.0 (>56); POTASSIUM SERUM 4.4 MMOL/L (3.5-5.1); SODIUM LEVEL 137 MMOL/L (136-145)
[2025-05-29 18:45] LABS: BASO # 0.1 10^3/uL (0.0-0.2); BASO % 1.1 % (0.0-1.0); EOS # 0.4 10^3/uL (0.0-0.5); EOS % 5.4 % (0.0-3.0); LYMPH # 1.6 10^3/uL (1.5-5.0); LYMPH % 21.1 % (24.0-44.0); MONO # 0.7 10^3/uL (0.0-0.8); MONO % 9.2 % (2.0-8.0); NEUTROPHILS # 4.6 10^3/uL (1.5-8.5); NEUTROPHILS % 62.9 % (36.0-66.0); PLATELET COUNT, AUTOMATED 279 10^3/uL (150-450)
[2025-05-29] MEDS ORDERED: ISOVUE-370 76% 100 ML VIAL As Ordered ONE (19:01)
[2025-05-29] MEDS ORDERED: PROHANCE 279.3MG/ML 15ML VIAL As Ordered ONE (20:47)
[2025-05-29] MEDS ORDERED: PROHANCE 279.3MG/ML 5ML VIAL As Ordered ONE (20:47)
[2025-05-29] MEDS: MORPHINE 4 MG/ML 1 ML VIAL IV ONE (20:55)
[2025-05-29] MEDS: VANCOMYCIN HCL 1,000 MG, VIAL MATE ADAPTER 1 EACH in NS 250 ML IV ONE (23:55)
[2025-05-30] MEDS ORDERED: DEXTROSE 50% 50 ML SYRINGE IV PRN (03:15)
[2025-05-30] MEDS ORDERED: GLUCOSE 4 GM CHEW PO PRN (03:15)
[2025-05-30] MEDS ORDERED: GLUCAGON INJ 1 MG VIAL SC PRN (03:15)
[2025-05-30] MEDS ORDERED: MORPHINE 4 MG/ML 1 ML VIAL IV PRN (03:15)
[2025-05-30] MEDS ORDERED: PERCOCET 5MG/325MG TAB PO PRN (03:15)
[2025-05-30 04:56] LABS: BASO # 0.1 10^3/uL (0.0-0.2); BASO % 0.9 % (0.0-1.0); EOS # 0.4 10^3/uL (0.0-0.5); EOS % 4.6 % (0.0-3.0); LYMPH # 1.3 10^3/uL (1.5-5.0); LYMPH % 16.2 % (24.0-44.0); MONO # 0.7 10^3/uL (0.0-0.8); MONO % 9.0 % (2.0-8.0); NEUTROPHILS # 5.4 10^3/uL (1.5-8.5); NEUTROPHILS % 68.9 % (36.0-66.0); PLATELET COUNT, AUTOMATED 333 10^3/uL (150-450)
[2025-05-30 05:09] VITALS: BP 142/87; TEMP 97.3; O2SAT 99
[2025-05-30 05:21] LABS: C REACTIVE PROTEIN QUANTITATIV 0.92 MG/DL (<1.0); CALCIUM LEVEL 9.0 MG/DL (8.5-10.1); CARBON DIOXIDE LEVEL 28 MMOL/L (20-31); CHLORIDE LEVEL 103 MMOL/L (98-107); CREATININE FOR GFR 0.79 MG/DL (0.70-1.30); GLOMERULAR FILTRATION RATE > 90.0 (>56); POTASSIUM SERUM 3.9 MMOL/L (3.5-5.1); SODIUM LEVEL 135 MMOL/L (136-145)
[2025-05-30] MEDS: VANCOMYCIN HCL 1,000 MG, VIAL MATE ADAPTER 1 EACH in NS 250 ML IV SCH (05:46)
[2025-05-30] MEDS ORDERED: APIXABAN 5 MG TAB PO SCH (09:00)
[2025-05-30] MEDS ORDERED: HEPARIN SOD 5000 UNITS/ML 1 ML VIAL/SYRINGE SQ SCH (09:00)
[2025-05-30] MEDS: CEFEPIME HCL 2 GM in DEXTROSE 5% (D5W) ADV/MINI-BAG 50 ML IV SCH (09:06)
[2025-05-30] MEDS: PANTOPRAZOLE 40MG VIAL IV SCH (09:11)
[2025-05-30] MEDS: INSULIN LISPRO (NovoLOG) PER UNIT SC SCH ×2 (09:11→20:46)
[2025-05-30] MEDS: DOCUSATE SODIUM 100 MG CAPSULE PO SCH (09:11)
[2025-05-30] MEDS: PERCOCET 5MG/325MG TAB PO PRN (09:13)
[2025-05-30 09:46] LABS: CPK CREATINE PHOSPHOKINASE 22 U/L (46-171)
[2025-05-30 10:47] LABS: ERYTHROCYTE SEDIMENTATION RATE 68 mm/hr (0-20)
[2025-05-30] MEDS: CYCLOBENZAPRINE 5 MG TABLET PO PRN (13:09)
[2025-05-30] MEDS ORDERED: METO5TAB2 PO (14:02)
[2025-05-30] MEDS ORDERED: OXYC15TA66 PO (14:02)
[2025-05-30] MEDS ORDERED: OXYC1TAB23 PO (14:02)
[2025-05-30] MEDS ORDERED: HOME MED LIST COMPLETE! XX SCH (14:05)
[2025-05-30] MEDS: LIDOCAINE 1% MDV 20 ML VIAL SC ONE (15:04)
[2025-05-30] MEDS: amLODIPine 5 MG TAB PO ONE (16:39)
[2025-05-30] MEDS: DAPTOmycin 750 MG in NS 50 ML IV SCH (16:39)
[2025-05-30] MEDS: ACETAMINOPHEN 325 MG TAB PO PRN (16:43)
[2025-05-30 17:00] VITALS: BP 117/70; TEMP 96.8
[2025-05-30 20:26] VITALS: BP 129/86; TEMP 97.2; O2SAT 96
[2025-05-30] MEDS: GABAPENTIN 300 MG CAP PO SCH (20:52)
[2025-05-31 06:33] VITALS: BP 134/90; TEMP 97.3; O2SAT 95
[2025-05-31] MEDS ORDERED: ATORVASTATIN 20 MG TAB PO SCH (09:00)
[2025-05-31] MEDS: amLODIPine 5 MG TAB PO SCH (09:19)
[2025-05-31 10:03] LABS: BASO # 0.1 10^3/uL (0.0-0.2); BASO % 0.8 % (0.0-1.0); EOS # 0.5 10^3/uL (0.0-0.5); EOS % 6.9 % (0.0-3.0); LYMPH # 1.3 10^3/uL (1.5-5.0); LYMPH % 18.0 % (24.0-44.0); MONO # 0.8 10^3/uL (0.0-0.8); MONO % 10.3 % (2.0-8.0); NEUTROPHILS # 4.6 10^3/uL (1.5-8.5); NEUTROPHILS % 63.6 % (36.0-66.0); PLATELET COUNT, AUTOMATED 311 10^3/uL (150-450)
[2025-05-31 10:09] VITALS: BP 129/86; TEMP 97.2; O2SAT 96
[2025-05-31 10:27] LABS: CALCIUM LEVEL 8.9 MG/DL (8.5-10.1); CARBON DIOXIDE LEVEL 27 MMOL/L (20-31); CHLORIDE LEVEL 104 MMOL/L (98-107); CREATININE FOR GFR 0.88 MG/DL (0.70-1.30); GLOMERULAR FILTRATION RATE > 90.0 (>56); POTASSIUM SERUM 4.1 MMOL/L (3.5-5.1); SODIUM LEVEL 141 MMOL/L (136-145)
[2025-05-31] MEDS ORDERED: PERCOCET 5MG/325MG TAB PO PRN (10:50)
[2025-05-31 12:00] VITALS: BP 131/62; TEMP 97.2
[2025-05-31] MEDS ORDERED: OXYC10TA12 PO (13:15)
[2025-05-31] MEDS ORDERED: GABA-1172 PO (13:17)
[2025-05-31] MEDS ORDERED: ERGO500029 PO (13:20)
[2025-05-31] MEDS ORDERED: ELIQ5TAB PO (13:22)
[2025-05-31] MEDS ORDERED: SERT25TA21 PO (13:22)
[2025-05-31] MEDS ORDERED: METO1TAB32 PO (13:23)
[2025-05-31] MEDS ORDERED: LISI20TA33 PO (13:25)
[2025-05-31] MEDS ORDERED: SEMA1PEN2 SQ (13:25)
[2025-05-31] MEDS ORDERED: SPIR-10 PO (13:25)
[2025-05-31] MEDS ORDERED: TAMS-18 PO (13:26)
[2025-05-31] MEDS ORDERED: HOME MED LIST COMPLETE! XX SCH (13:30)
[2025-05-31 14:34] VITALS: BP 105/76; TEMP 97.9; O2SAT 95
[2025-05-31] MEDS: GABAPENTIN 300 MG CAP PO SCH (14:43)
[2025-05-31 20:44] VITALS: BP 106/56; TEMP 97.5; O2SAT 97
[2025-05-31] MEDS: oxyCODONE 15MG CR TAB PO SCH (22:00)
[2025-05-31] MEDS: LanTUS (INSULIN GLARGINE INJ) 1 UNITS/0.01 ML SC SCH (22:00)
[2025-05-31] MEDS: APIXABAN 5 MG TAB PO SCH (22:01)
[2025-06-01 05:40] VITALS: BP 129/86; TEMP 97.7; O2SAT 99
[2025-06-01 07:01] LABS: BASO # 0.1 10^3/uL (0.0-0.2); BASO % 1.1 % (0.0-1.0); EOS # 0.5 10^3/uL (0.0-0.5); EOS % 7.4 % (0.0-3.0); LYMPH # 1.9 10^3/uL (1.5-5.0); LYMPH % 27.5 % (24.0-44.0); MONO # 0.7 10^3/uL (0.0-0.8); MONO % 9.5 % (2.0-8.0); NEUTROPHILS # 3.8 10^3/uL (1.5-8.5); NEUTROPHILS % 53.9 % (36.0-66.0); PLATELET COUNT, AUTOMATED 267 10^3/uL (150-450)
[2025-06-01 07:24] LABS: CALCIUM LEVEL 8.9 MG/DL (8.5-10.1); CARBON DIOXIDE LEVEL 29 MMOL/L (20-31); CHLORIDE LEVEL 105 MMOL/L (98-107); CREATININE FOR GFR 0.85 MG/DL (0.70-1.30); GLOMERULAR FILTRATION RATE > 90.0 (>56); POTASSIUM SERUM 3.9 MMOL/L (3.5-5.1); SODIUM LEVEL 137 MMOL/L (136-145)
[2025-06-01] MEDS: TAMSULOSIN 0.4 MG CAP PO SCH (08:22)
[2025-06-01] MEDS: METOPROLOL SUCC. 25 MG *XL* TAB PO SCH (08:24)
[2025-06-01] MEDS: LORATADINE 10 MG TAB PO SCH (08:24)
[2025-06-01 08:28] VITALS: BP 153/93
[2025-06-01] MEDS: SERTRALINE HCL 25 MG TABLET PO SCH (08:30)
[2025-06-01] MEDS ORDERED: TAMS-18 PO (14:24)
[2025-06-01] MEDS ORDERED: METO5TAB2 PO (14:24)
[2025-06-01] MEDS ORDERED: SERT25TA21 PO (14:24)
[2025-06-01] MEDS ORDERED: METO1TAB32 PO (14:24)
[2025-06-01] MEDS ORDERED: LISI20TA33 PO (14:24)
[2025-06-01] MEDS ORDERED: GABA-1172 PO (14:24)
[2025-06-01] MEDS ORDERED: CLAR10TA7 PO (14:24)
[2025-06-01] MEDS ORDERED: SPIR-10 PO (14:24)
[2025-06-01] MEDS ORDERED: ELIQ5TAB PO (14:24)
[2025-06-01] MEDS ORDERED: SEMA1PEN2 SQ (14:24)
[2025-06-01] MEDS ORDERED: OXYC10TA12 PO ×2 (14:24→14:41)
[2025-06-01] MEDS ORDERED: CYCL5TAB4 PO (14:24)
[2025-06-01] MEDS ORDERED: LANTINJ4 SC (14:24)
[2025-06-01] MEDS ORDERED: PROT40IN4 IV (14:25)
[2025-06-01] MEDS ORDERED: DOXY-440 PO (14:25)
[2025-06-01] MEDS ORDERED: OXYC15TA66 PO ×2 (14:27→14:41)
[2025-06-01] MEDS ORDERED: PROT1TAB2 PO (14:41)
[2025-06-01] MEDS ORDERED: METF500T13 PO (14:41)
[2025-06-01] MEDS ORDERED: ATOR40TA75 PO (17:17)
== END 2025-06-01 17:42 | disposition home or self-care (01) | DRG 420 ==
LOC: EDBD 15:59 → M ED 15:59 → M ED INP 05-30 03:12 → M MS5PR 05-30 05:00
PROVIDERS: ADMIT Student in an Organized Health Care Education/Training Program; ATTEND Internal Medicine
PROC: 0PB43ZX Excision of Thoracic Vertebra, Percutaneous Approach, Diagnostic (ICD-10-PCS; principal; 2025-05-30 14:30)
DX: E11.69 Type 2 diabetes mellitus with other specified complication (principal); K31.84 Gastroparesis; I11.0 Hypertensive heart disease with heart failure; M46.24 Osteomyelitis of vertebra, thoracic region; G95.20 Unspecified cord compression; I50.32 Chronic diastolic (congestive) heart failure; E11.43 Type 2 diabetes mellitus with diabetic autonomic (poly)neuropathy; N31.9 Neuromuscular dysfunction of bladder, unspecified; E78.5 Hyperlipidemia, unspecified; J44.9 Chronic obstructive pulmonary disease, unspecified; K21.9 Gastro-esophageal reflux disease without esophagitis; G89.29 Other chronic pain; F17.220 Nicotine dependence, chewing tobacco, uncomplicated; N39.0 Urinary tract infection, site not specified; D50.9 Iron deficiency anemia, unspecified; R82.71 Bacteriuria; K59.00 Constipation, unspecified; N40.0 Benign prostatic hyperplasia without lower urinary tract symptoms; Z79.899 Other long term (current) drug therapy; Z79.891 Long term (current) use of opiate analgesic; Z88.0 Allergy status to penicillin; Z88.6 Allergy status to analgesic agent; Z88.7 Allergy status to serum and vaccine; Z91.012 Allergy to eggs; Z91.048 Other nonmedicinal substance allergy status; Z90.49 Acquired absence of other specified parts of digestive tract; Z96.651 Presence of right artificial knee joint; Z86.73 Personal history of transient ischemic attack (TIA), and cerebral infarction without residual deficits; Z79.4 Long term (current) use of insulin; Z86.718 Personal history of other venous thrombosis and embolism; Z86.711 Personal history of pulmonary embolism

== ENCOUNTER 2025-06-12 22:46 | Emergency (ER) | payer MEDICAID ==
[~2025-06-12] VITALS: Ht 175.3 cm; Wt 91.4 kg
[~2025-06-12 22:46] MED LIST changes: +CLAR10TA7 PO; +DOXY-440 PO; +ERGO500029 PO; +LISI20TA33 PO; +METF500T13 PO; +METO1TAB32 PO; +METO5TAB2 PO; +OXYC10TA12 PO; +OXYC15TA66 PO; +PROT40IN4 IV; +SEMA1PEN2 SQ; +SERT25TA21 PO; +SPIR-10 PO; +TAMS-18 PO
[2025-06-12 23:21] LABS: BASO # 0.1 10^3/uL (0.0-0.2); BASO % 1.0 % (0.0-1.0); EOS # 0.4 10^3/uL (0.0-0.5); EOS % 5.3 % (0.0-3.0); LYMPH # 2.1 10^3/uL (1.5-5.0); LYMPH % 26.5 % (24.0-44.0); MONO # 0.6 10^3/uL (0.0-0.8); MONO % 7.5 % (2.0-8.0); NEUTROPHILS # 4.6 10^3/uL (1.5-8.5); NEUTROPHILS % 58.8 % (36.0-66.0); PLATELET COUNT, AUTOMATED 317 10^3/uL (150-450)
[2025-06-12 23:43] LABS: CALCIUM LEVEL 8.6 MG/DL (8.5-10.1); CARBON DIOXIDE LEVEL 24 MMOL/L (20-31); CHLORIDE LEVEL 106 MMOL/L (98-107); CK-MB VALUE MASS 1.6 NG/ML (<3.6); CREATININE FOR GFR 0.69 MG/DL (0.70-1.30); GLOMERULAR FILTRATION RATE > 90.0 (>56); POTASSIUM SERUM 4.0 MMOL/L (3.5-5.1); SODIUM LEVEL 142 MMOL/L (136-145)
[2025-06-12 23:55] LABS: CPK CREATINE PHOSPHOKINASE 31 U/L (46-171); MB/CK RELATIVE INDEX 5.16 (< OR =4)
[2025-06-13] MEDS: NS (Normal Saline) 0.9% 1,000 ML IV ONE (00:32)
[2025-06-13 01:02] LABS: CK-MB VALUE MASS 1.5 NG/ML (<3.6)
[2025-06-13 01:03] LABS: CPK CREATINE PHOSPHOKINASE 27.0 U/L (46-171); MB/CK RELATIVE INDEX 5.55 (< OR =4)
[2025-06-13] MEDS: oxyCODONE 10 MG CR TAB PO ONE (01:10)
[2025-06-13] MEDS: ACETAMINOPHEN *IV* 1,000 MG in IV 1 EA IV ONE (01:10)
[2025-06-13] MEDS ORDERED: OXYC-1 PO (02:12)
[2025-06-13 02:28] VITALS: BP 152/91; TEMP 97.2; O2SAT 99
== END 2025-06-13 02:40 | disposition home or self-care (01) ==
LOC: EDBD 22:46 → M ED 22:46
DX: R07.89 Other chest pain (principal); M54.6 Pain in thoracic spine; I44.7 Left bundle-branch block, unspecified; I25.2 Old myocardial infarction; I25.119 Atherosclerotic heart disease of native coronary artery with unspecified angina pectoris; E11.9 Type 2 diabetes mellitus without complications; I10 Essential (primary) hypertension; E78.5 Hyperlipidemia, unspecified; K21.9 Gastro-esophageal reflux disease without esophagitis; N40.0 Benign prostatic hyperplasia without lower urinary tract symptoms; E55.9 Vitamin D deficiency, unspecified; F32.A Depression, unspecified; F17.210 Nicotine dependence, cigarettes, uncomplicated; Z88.0 Allergy status to penicillin; Z88.7 Allergy status to serum and vaccine; Z88.6 Allergy status to analgesic agent; Z88.8 Allergy status to other drugs, medicaments and biological substances; Z91.012 Allergy to eggs; Z79.01 Long term (current) use of anticoagulants; Z79.84 Long term (current) use of oral hypoglycemic drugs; Z79.4 Long term (current) use of insulin; Z79.899 Other long term (current) drug therapy
CPT/HCPCS: 71045; 80048; 82550; 82553; 84484; 85025; 93005; 93041; 94760; 96374; 99285; J0131

== ENCOUNTER 2025-06-22 00:38 | Emergency (ER) | payer MEDICAID ==
[~2025-06-22] VITALS: Ht 175.3 cm; Wt 96.1 kg
[~2025-06-22 00:38] MED LIST changes: +OXYC-1 PO
[2025-06-22 09:06] VITALS: BP 174/102; TEMP 96.9; O2SAT 98
== END 2025-06-22 09:08 | disposition home or self-care (01) ==
LOC: M ED 00:38
DX: S80.911A Unspecified superficial injury of right knee, initial encounter (principal); Y92.9 Unspecified place or not applicable; Y93.9 Activity, unspecified; Y99.9 Unspecified external cause status; W01.0XXA Fall on same level from slipping, tripping and stumbling without subsequent striking against object, initial encounter; I10 Essential (primary) hypertension; Z88.0 Allergy status to penicillin; Z88.6 Allergy status to analgesic agent; Z88.7 Allergy status to serum and vaccine; Z88.8 Allergy status to other drugs, medicaments and biological substances; Z91.0110 Allergy to milk products, unspecified; Z79.01 Long term (current) use of anticoagulants; Z79.4 Long term (current) use of insulin; Z79.84 Long term (current) use of oral hypoglycemic drugs; Z79.899 Other long term (current) drug therapy; Z79.810 Long term (current) use of selective estrogen receptor modulators (SERMs)

== ENCOUNTER 2025-06-28 18:38 | Emergency (ER) | payer MEDICAID ==
[~2025-06-28] VITALS: Ht 175.3 cm; Wt 96.9 kg
[2025-06-29] MEDS ORDERED: MELA5TAB11 PO (00:42)
[2025-06-29] MEDS ORDERED: LIDO5TD TOP (00:42)
[2025-06-29 00:52] VITALS: BP 170/104; TEMP 96.4; O2SAT 98
== END 2025-06-29 01:05 | disposition home or self-care (01) ==
LOC: M ED 18:38 → EDBD 18:38 → M ED 06-29 01:05
DX: R07.89 Other chest pain (principal); Z88.0 Allergy status to penicillin; Z88.6 Allergy status to analgesic agent; Z88.7 Allergy status to serum and vaccine; Z91.0120 Allergy to eggs, unspecified; Z91.018 Allergy to other foods; Z79.01 Long term (current) use of anticoagulants; Z79.4 Long term (current) use of insulin; Z79.1 Long term (current) use of non-steroidal anti-inflammatories (NSAID); Z79.84 Long term (current) use of oral hypoglycemic drugs; Z79.899 Other long term (current) drug therapy

== ENCOUNTER 2025-07-04 15:42 | Emergency (ER) | payer MEDICAID ==
[~2025-07-04] VITALS: Ht 175.3 cm; Wt 91.4 kg
[~2025-07-04 15:42] MED LIST changes: +LIDO5TD TOP; +MELA5TAB11 PO
[2025-07-04 16:11] LABS: BASO # 0.1 10^3/uL (0.0-0.2); BASO % 0.8 % (0.0-1.0); EOS # 0.5 10^3/uL (0.0-0.5); EOS % 7.1 % (0.0-3.0); LYMPH # 1.5 10^3/uL (1.5-5.0); LYMPH % 21.0 % (24.0-44.0); MONO # 0.7 10^3/uL (0.0-0.8); MONO % 8.9 % (2.0-8.0); NEUTROPHILS # 4.5 10^3/uL (1.5-8.5); NEUTROPHILS % 61.4 % (36.0-66.0); PLATELET COUNT, AUTOMATED 266 10^3/uL (150-450)
[2025-07-04 16:45] LABS: CALCIUM LEVEL 8.7 MG/DL (8.5-10.1); CARBON DIOXIDE LEVEL 25 MMOL/L (20-31); CHLORIDE LEVEL 107 MMOL/L (98-107); CK-MB VALUE MASS 1.3 NG/ML (<3.6); CREATININE FOR GFR 0.74 MG/DL (0.70-1.30); GLOMERULAR FILTRATION RATE > 90.0 (>56); POTASSIUM SERUM 4.1 MMOL/L (3.5-5.1); SODIUM LEVEL 142 MMOL/L (136-145)
[2025-07-04 16:53] LABS: CPK CREATINE PHOSPHOKINASE 59 U/L (46-171); MB/CK RELATIVE INDEX 2.20 (< OR =4)
[2025-07-04 17:47] LABS: CK-MB VALUE MASS 1.6 NG/ML (<3.6)
[2025-07-04 17:49] LABS: ALT/SGPT 10 U/L (7.0-40); AST/SGOT 12 U/L (<34)
[2025-07-04 17:50] LABS: CPK CREATINE PHOSPHOKINASE 56.0 U/L (46-171); MB/CK RELATIVE INDEX 2.85 (< OR =4)
[2025-07-04] MEDS: MORPHINE 4 MG/ML 1 ML VIAL IV PRN (18:26)
[2025-07-04] MEDS: ONDANSETRON 4MG/2ML VIAL IV ONE (18:26)
[2025-07-04 20:15] VITALS: BP 168/98; O2SAT 96
[2025-07-04] MEDS ORDERED: DOXYCYCLINE HYCLATE 100 MG TABLET PO ONE (20:15)
[2025-07-04 20:43] VITALS: TEMP 98
[2025-07-04] MEDS: DOXYCYCLINE HYCLATE 100 MG TABLET PO ONE (20:43)
[2025-07-04] MEDS: OXYCODONE/APAP 5MG/325MG(HOME DOSE PACK) PO ONE (20:44)
== END 2025-07-04 21:00 | disposition home or self-care (01) ==
LOC: M ED 15:42
DX: R07.89 Other chest pain (principal); W57.XXXA Bitten or stung by nonvenomous insect and other nonvenomous arthropods, initial encounter; I44.7 Left bundle-branch block, unspecified; E10.9 Type 1 diabetes mellitus without complications; I10 Essential (primary) hypertension; E78.5 Hyperlipidemia, unspecified; Z88.0 Allergy status to penicillin; Z88.6 Allergy status to analgesic agent; Z88.7 Allergy status to serum and vaccine; Z88.8 Allergy status to other drugs, medicaments and biological substances; Z91.0120 Allergy to eggs, unspecified; Z79.01 Long term (current) use of anticoagulants; Z79.4 Long term (current) use of insulin; Z79.84 Long term (current) use of oral hypoglycemic drugs; Z79.899 Other long term (current) drug therapy
CPT/HCPCS: 70450; 71045; 71275; 73552; 73564; 73590; 80048; 80076; 82550; 82553; 83690; 83880; 84484; 85025; 87486; 87581; 87633; 87798; 93005; 93041; 94760; 96374; 99285; J2405

== ENCOUNTER 2025-07-21 20:17 | Emergency (ER) | payer MEDICAID ==
[~2025-07-21] VITALS: Ht 175.3 cm; Wt 99.7 kg
[2025-07-21 20:25] VITALS: BP 173/84; TEMP 97.7; O2SAT 98
[2025-07-21] MEDS: NS (Normal Saline) 0.9% 1,000 ML IV ONE (21:19)
[2025-07-21] MEDS: ACETAMINOPHEN *IV* 1,000 MG in IV 1 EA IV ONE (21:20)
[2025-07-21] MEDS ORDERED: ISOVUE-370 76% 100 ML VIAL As Ordered ONE (21:33)
[2025-07-21 21:34] LABS: BASO # 0.1 10^3/uL (0.0-0.2); BASO % 0.7 % (0.0-1.0); EOS # 0.7 10^3/uL (0.0-0.5); EOS % 9.7 % (0.0-3.0); LYMPH # 1.7 10^3/uL (1.5-5.0); LYMPH % 25.3 % (24.0-44.0); MONO # 0.6 10^3/uL (0.0-0.8); MONO % 8.8 % (2.0-8.0); NEUTROPHILS # 3.8 10^3/uL (1.5-8.5); NEUTROPHILS % 54.9 % (36.0-66.0); PLATELET COUNT, AUTOMATED 245 10^3/uL (150-450)
[2025-07-21 21:58] LABS: ALT/SGPT < 9 U/L (7.0-40); AST/SGOT 12 U/L (<34)
== END 2025-07-21 23:03 | disposition home or self-care (01) ==
LOC: M ED 20:17
DX: R10.32 Left lower quadrant pain (principal); Z88.0 Allergy status to penicillin; Z88.6 Allergy status to analgesic agent; Z88.7 Allergy status to serum and vaccine; Z88.8 Allergy status to other drugs, medicaments and biological substances; Z91.0120 Allergy to eggs, unspecified; Z79.01 Long term (current) use of anticoagulants; Z79.2 Long term (current) use of antibiotics; Z79.4 Long term (current) use of insulin; Z79.84 Long term (current) use of oral hypoglycemic drugs; Z79.899 Other long term (current) drug therapy
CPT/HCPCS: 36415; 74177; 80047; 80076; 83690; 85025; 96361; 96365; 99284; J0131; Q9967

== ENCOUNTER 2025-07-24 05:08 | Emergency (ER) | payer MEDICAID ==
[~2025-07-24] VITALS: Ht 167.6 cm; Wt 77.2 kg
[2025-07-24 07:56] VITALS: BP 167/97; TEMP 97.1; O2SAT 99
== END 2025-07-24 07:58 | disposition home or self-care (01) ==
LOC: M ED 05:08
DX: S80.01XA Contusion of right knee, initial encounter (principal); S80.02XA Contusion of left knee, initial encounter; M54.50 Low back pain, unspecified; Y92.019 Unspecified place in single-family (private) house as the place of occurrence of the external cause; Y93.9 Activity, unspecified; Y99.9 Unspecified external cause status; W01.0XXA Fall on same level from slipping, tripping and stumbling without subsequent striking against object, initial encounter; E11.9 Type 2 diabetes mellitus without complications; J45.909 Unspecified asthma, uncomplicated; Z88.0 Allergy status to penicillin; Z88.6 Allergy status to analgesic agent; Z88.7 Allergy status to serum and vaccine; Z88.8 Allergy status to other drugs, medicaments and biological substances; Z91.0120 Allergy to eggs, unspecified; Z91.0110 Allergy to milk products, unspecified; Z79.01 Long term (current) use of anticoagulants; Z79.2 Long term (current) use of antibiotics; Z79.4 Long term (current) use of insulin; Z79.84 Long term (current) use of oral hypoglycemic drugs; Z79.899 Other long term (current) drug therapy

== ENCOUNTER 2025-07-29 22:10 | Emergency (ER) | payer MEDICAID ==
[~2025-07-29] VITALS: Ht 175.3 cm; Wt 101.7 kg
[2025-07-29 22:16] VITALS: TEMP 97
[2025-07-30] MEDS ORDERED: METHOCARBAMOL 1,000 MG/10 ML VIAL IM ONE (01:00)
[2025-07-30] MEDS ORDERED: METH-1164 PO (01:07)
[2025-07-30] MEDS ORDERED: OXYC-673 PO ×2 (01:09→01:31)
[2025-07-30] MEDS: LIDOCAINE 5% PATCH TD ONE (01:12)
[2025-07-30] MEDS ORDERED: LIDO1ADH93 TD (01:31)
[2025-07-30 01:54] VITALS: BP 170/94; O2SAT 98
== END 2025-07-30 01:55 | disposition home or self-care (01) ==
LOC: M ED 22:10
DX: M51.34 Other intervertebral disc degeneration, thoracic region (principal); E11.9 Type 2 diabetes mellitus without complications; I25.2 Old myocardial infarction; K21.9 Gastro-esophageal reflux disease without esophagitis; J45.909 Unspecified asthma, uncomplicated; Z88.0 Allergy status to penicillin; Z88.7 Allergy status to serum and vaccine; Z88.6 Allergy status to analgesic agent; Z88.8 Allergy status to other drugs, medicaments and biological substances; Z91.0110 Allergy to milk products, unspecified; Z79.01 Long term (current) use of anticoagulants; Z79.4 Long term (current) use of insulin; Z79.84 Long term (current) use of oral hypoglycemic drugs; Z79.899 Other long term (current) drug therapy

== ENCOUNTER 2025-07-31 06:55 | Emergency (ER) | payer MEDICAID ==
[~2025-07-31] VITALS: Ht 175.3 cm; Wt 102.4 kg
[~2025-07-31 06:55] MED LIST changes: +OXYC-673 PO
[2025-07-31 08:49] VITALS: TEMP 97.5
[2025-07-31 10:15] VITALS: BP 171/90; O2SAT 96
[2025-07-31] MEDS: oxyCODONE 15MG CR TAB PO ONE (11:28)
== END 2025-07-31 11:30 | disposition home or self-care (01) ==
LOC: EDBD 06:55 → M ED 06:55
DX: Z76.0 Encounter for issue of repeat prescription (principal); M54.50 Low back pain, unspecified; F17.210 Nicotine dependence, cigarettes, uncomplicated; Z88.0 Allergy status to penicillin; Z88.6 Allergy status to analgesic agent; Z88.7 Allergy status to serum and vaccine; Z88.8 Allergy status to other drugs, medicaments and biological substances; Z91.0120 Allergy to eggs, unspecified; Z79.01 Long term (current) use of anticoagulants; Z79.2 Long term (current) use of antibiotics; Z79.84 Long term (current) use of oral hypoglycemic drugs; Z79.899 Other long term (current) drug therapy

== ENCOUNTER 2025-08-03 12:38 | Emergency (ER) | payer MEDICAID ==
[~2025-08-03] VITALS: Ht 175.3 cm; Wt 101.1 kg
[~2025-08-03 12:38] MED LIST changes: -BACTDSTA PO; +SULF-8 PO; -SULF400T14 PO; +SULF400T15 PO
[2025-08-03] MEDS ORDERED: KETOROLAC 30 MG/ML 1 ML VIAL As Ordered ONE (17:18)
[2025-08-03] MEDS: LIDOCAINE 5% PATCH TD ONE (17:21)
[2025-08-03] MEDS: KETOROLAC 30 MG/ML 1 ML VIAL IM ONE (17:33)
[2025-08-03 17:40] VITALS: BP 158/87; TEMP 98.4; O2SAT 99
== END 2025-08-03 17:42 | disposition home or self-care (01) ==
LOC: EDBD 12:38 → M ED 12:38
DX: M54.50 Low back pain, unspecified (principal); Z76.5 Malingerer [conscious simulation]; K21.9 Gastro-esophageal reflux disease without esophagitis; J45.909 Unspecified asthma, uncomplicated; Z86.711 Personal history of pulmonary embolism; Z88.0 Allergy status to penicillin; Z88.6 Allergy status to analgesic agent; Z88.7 Allergy status to serum and vaccine; Z88.8 Allergy status to other drugs, medicaments and biological substances; Z91.0110 Allergy to milk products, unspecified; Z91.0120 Allergy to eggs, unspecified; Z79.01 Long term (current) use of anticoagulants; Z79.2 Long term (current) use of antibiotics; Z79.4 Long term (current) use of insulin; Z79.84 Long term (current) use of oral hypoglycemic drugs; Z79.899 Other long term (current) drug therapy
CPT/HCPCS: 96372; 99284; J1885

== ENCOUNTER 2025-08-22 17:33 | Emergency (ER) | payer MEDICAID ==
[~2025-08-22] VITALS: Ht 175.3 cm; Wt 100.2 kg
[2025-08-22] MEDS ORDERED: PRED20TA PO (22:08)
[2025-08-22 22:33] VITALS: BP 177/106; TEMP 97.7; O2SAT 98
[2025-08-22] MEDS: predniSONE 20 MG TAB PO ONE (22:44)
== END 2025-08-22 22:55 | disposition home or self-care (01) ==
LOC: M ED 17:33 → EDBD 17:33 → M ED 22:55
DX: S43.401A Unspecified sprain of right shoulder joint, initial encounter (principal); Y92.9 Unspecified place or not applicable; Y93.9 Activity, unspecified; Y99.9 Unspecified external cause status; Z88.0 Allergy status to penicillin; Z88.6 Allergy status to analgesic agent; Z88.7 Allergy status to serum and vaccine; Z88.8 Allergy status to other drugs, medicaments and biological substances; Z91.0120 Allergy to eggs, unspecified; Z79.01 Long term (current) use of anticoagulants; Z79.2 Long term (current) use of antibiotics; Z79.4 Long term (current) use of insulin; Z79.84 Long term (current) use of oral hypoglycemic drugs; Z79.899 Other long term (current) drug therapy; Z79.52 Long term (current) use of systemic steroids
CPT/HCPCS: 73030; 73130; 99284; J7512